=== PATIENT | female | born 1950 | race Caucasian/White ===

== ENCOUNTER 2023-12-15 06:48 | Outpatient (REF) | payer OTHER, SELFPAY ==
--- NOTE | ~2023-12-15 | CT_ITS ---
EXAMINATION: CT ABDOMEN AND PELVIS WITH CONTRAST CLINICAL INFORMATION: Diverticulitis with ongoing abdominal pain and bloating. COMPARISON: None available. TECHNIQUE: Multidetector volumetric images were obtained from the superior aspect of the liver through the pubic symphysis following administration 85 mL of Omnipaque 350 intravenous contrast. Sagittal and coronal reformatted images were obtained on the technologist's workstation. Oral contrast: No This CT examination was performed using dose optimization techniques as appropriate, variously including the following: *Automated exposure control *Adjustment of mA and/or kV according to patient size (this includes techniques or standardized protocols for targeted exams where dose is matched to indication/reason for exam; i.e. extremities or head) *Use of iterative reconstruction technique DLP: 280 mGy-cm FINDINGS: LUNG BASES: The visualized lung bases are unremarkable. LIVER, GALLBLADDER, AND BILIARY TREE: The liver is normal in size, shape, and attenuation. No focal hepatic lesion or biliary ductal dilatation is present. The gallbladder is unremarkable with no evidence of radiopaque gallstones, gallbladder wall thickening, or obvious pericholecystic inflammatory changes. PANCREAS: Unremarkable. SPLEEN: Unremarkable. ADRENAL GLANDS: Unremarkable. KIDNEYS AND URETERS: The kidneys are normal in size, shape, and attenuation. No hydronephrosis, hydroureter, or calculi seen. There are a few benign, simple appearing left renal cysts, some too small to fully characterize with CT. These require no imaging follow-up. No perinephric stranding. BLADDER: Unremarkable. GASTROINTESTINAL TRACT: There is moderate diverticulosis diverticulosis. Within the sigmoid region (3:59 and 4:39), there is a 2.0 x 3.5 x 3.9 cm fluid collection, with appearance favoring an intramural abscess. Within the ascending colon (2:31), there is a 1.3 cm lipomatous polyp with postcontrast Hounsfield value of -37.4 units. No obstruction or free intraperitoneal air is seen. There is a large volume of stool within the distal sigmoid and rectum. ABDOMINAL WALL: A small fat-containing umbilical hernia defect is seen. LYMPH NODES: Normal. VASCULAR: There is moderate aortoiliac atherosclerotic calcification. No abdominal aortic aneurysm or dissection is seen. PELVIC VISCERA: The uterus and adnexa are unremarkable. OSSEOUS STRUCTURES: There is marked degenerative disc disease at L4-L5 and L5-S1, with vacuum disc phenomenon. At L5-S1, there is a 5 mm anterolisthesis. No acute or aggressive osseous finding is noted. CT/CT abdomen pelvis w IV con IMPRESSION: 1. There is sigmoid diverticulosis. A 3.9 cm in maximal diameter low-attenuation fluid collection is seen consistent with a sigmoid intramural abscess. There is a large volume of stool noted within the distal sigmoid and rectum. No judi obstruction or free intraperitoneal air is seen. A 1.3 cm fat density lipoma is noted within the ascending colon. 2. There is a small fat-containing umbilical hernia. 3. There is marked degenerative disc disease at L4-L5 and L5-S1. Fleischner guidelines were followed. A preliminary report was provided by the [facility] on 12/23/2023.
[2023-12-15] MEDS: Barium Sulfate Oral (Vanilla) 450 ML ORAL.SUSP 900 ML PO (10:20)
[2023-12-15] MEDS: iohexoL 350 MG/ML 100 ML INFUS..BTL 85 ML IV (10:21)
[2023-12-15 14:25] LABS: GFR POC 60
== END 2023-12-15 06:49 | disposition home or self-care (01) ==
LOC: HO.CT 06:48
PROVIDERS: PCP Family Medicine; Visit Provider Family Medicine
DX: K57.92 Diverticulitis of intestine, part unspecified, without perforation or abscess without bleeding (principal)
CPT/HCPCS: 74177; 82565; Q9967

== ENCOUNTER 2023-12-27 11:52 | Outpatient (REF) | payer OTHER, SELFPAY ==
--- NOTE | ~2023-12-27 | CT_ITS ---
EXAMINATION: CT ABDOMEN AND PELVIS WITH CONTRAST CLINICAL INFORMATION: Diverticulitis/abscess. Status post Rx. Check abscess size. COMPARISON: CT abdomen and pelvis 12/15/2023. TECHNIQUE: Multidetector volumetric images were obtained from the superior aspect of the liver through the pubic symphysis following administration 85 mL of Omnipaque 350 intravenous contrast. Sagittal and coronal reformatted images were obtained on the technologist's workstation. Oral contrast: Yes This CT examination was performed using dose optimization techniques as appropriate, variously including the following: *Automated exposure control *Adjustment of mA and/or kV according to patient size (this includes techniques or standardized protocols for targeted exams where dose is matched to indication/reason for exam; i.e. extremities or head) *Use of iterative reconstruction technique DLP: 346 mGy-cm FINDINGS: LUNG BASES: The visualized lung bases are unremarkable. LIVER, GALLBLADDER, AND BILIARY TREE: The liver is normal in size, shape, and attenuation. No focal hepatic lesion or biliary ductal dilatation is present. The gallbladder is unremarkable with no evidence of radiopaque gallstones, gallbladder wall thickening, or obvious pericholecystic inflammatory changes. PANCREAS: No discrete pancreatic mass or pancreatic ductal dilatation. SPLEEN: Unremarkable. ADRENAL GLANDS: No adrenal mass. KIDNEYS AND URETERS: Unchanged 7 mm hypodensity in the mid to lower left kidney is too small to characterize but most likely a cyst. No follow-up imaging is recommended. No hydroureteronephrosis. BLADDER: No discrete fistula is visible. GASTROINTESTINAL TRACT: There is abnormal mural thickening of the mid sigmoid colon over a length of approximately 8-9 cm. There is an ill-defined peripherally enhancing multiloculated fluid collection with air and fluid interposed between the inflamed sigmoid, left adnexum, uterus, and urinary bladder. The collection currently measures approximately 4.9 x 2.4 x 5.1 cm, previously 3.9 x 2.5 x 1.5 cm when measured similarly. There is also a more tubular fluid-filled structure to the left of the primary fluid collection tracking near the gonadal vessels which may represent involvement of the ovary/fallopian tube. This latter component appears stable. There is a new nonenhancing fluid collection in the left lower quadrant measuring 3.4 x 2.7 x 3.0 cm along the lateral peritoneal recess. ABDOMINAL WALL: Small fat-containing umbilical hernia. LYMPH NODES: No lymphadenopathy. VASCULAR: Moderate aortoiliac atherosclerosis. No aneurysm. PELVIC VISCERA: Likely reactive enhancement in the adjacent uterus and involvement of the left fallopian tube/ovary. OSSEOUS STRUCTURES: Degenerative changes in the spine. CT/CT abdomen pelvis w IV con IMPRESSION: Overall worsening of complex fluid collection interposed between the inflamed sigmoid colon, left adnexum, uterus, and urinary bladder as well as development of a new 3.4 x 2.7 x 3.0 cm collection inferior to the proximal sigmoid colon. This process is associated with focal area of sigmoid wall thickening over a length of 8-9 cm and may relate to acute diverticulitis with pericolonic abscess, but nn underlying sigmoid neoplasm with perforation and abscess is a another potential diagnosis. Correlation with colonoscopy is necessary after the acute episode.
[2023-12-27] MEDS: iohexoL 350 MG/ML 100 ML INFUS..BTL IV (15:19)
[2023-12-27] MEDS: Barium Sulfate Oral (Mocha) 450 ML ORAL.SUSP 900 ML PO (15:20)
== END 2023-12-27 11:53 | disposition home or self-care (01) ==
LOC: HO.CT 11:52
PROVIDERS: PCP Family Medicine; Visit Provider Family Medicine
DX: K57.20 Diverticulitis of large intestine with perforation and abscess without bleeding (principal)
CPT/HCPCS: 74177; Q9967

== ENCOUNTER 2023-12-28 14:51 | Inpatient (IN) | payer MEDICARE, SELFPAY ==
--- NOTE | ~2023-12-28 | US_ITS ---
EXAMINATION: US PELVIS CLINICAL INFORMATION: Inflammatory process left pelvis COMPARISON: Previous CT of the abdomen and pelvis 12/27/2023 TECHNIQUE: Ultrasound of the pelvis is performed using both transabdominal and transvaginal transducers along with Doppler. Transvaginal imaging is performed due to inadequate visualization transabdominally. FINDINGS: The uterus is anteverted and measures 7.2 x 3.1 x 3.1 cm in dimension. The endometrium is abnormally thickened for a postmenopausal patient measuring 8 mm and heterogeneous appearing. No focal uterine lesion is seen. The right ovary is normal-appearing and measures 1.7 x 1 x 1 cm. The left ovary is not seen. There is an ill-defined heterogeneous hyper and hypoechoic mass in the left pelvis, associated peristalsing bowel and small amount of free fluid. US/US pelvic and transvaginal IMPRESSION: Abnormally thickened heterogeneous endometrium. Tissue sampling recommended, especially if there is history of vaginal bleeding. Normal right ovary. Left ovary not seen. Heterogeneous ill-defined hyper and hypoechoic mass in the left pelvis that appears associated with peristalsing bowel and small amount of fluid in the pelvis.
[2023-12-28 15:05] VITALS: BP 144/72; PULSE 83; RESP 19; TEMP 36.6; O2SAT 99; BMI 23.7
--- NOTE | 2023-12-28 15:05 | ED_ITS ---
HPI - Abdominal Pain General Chief Complaint: Abdominal Pain Stated Complaint: Abscess - sent by Dr Michael Seen by Provider: 12/28/23 18:41 Source: patient, RN notes reviewed and old records reviewed Mode of arrival: ambulatory Limitations: no limitations History of Present Illness ED Provider: Rosmery Reeves PA-C HPI narrative: 73-year-old female with history of hypertension and hypothyroid who presents to the ER for evaluation of a worsening sigmoid abscess on outpatient imaging. Patient has been having abdominal pain since October. She had a CT scan done December 14 that showed a 3.9 cm sigmoid abscess (didn't result until 12/23) . Her provider was paged of the abnormal results and she was started on Levaquin and Flagyl. A repeat CT scan was ordered and done yesterday. Results came back today with a worsening sigmoid abscess. He reports a history of a similar issue in 2018 which was treated with IV antibiotics and did not require surgical intervention. Patient reports the pain is intermittent, currently has no pain. She reports it is sharp and in her lower abdomen, worse on the left than the right. She denies any nausea, vomiting, diarrhea. She has been having more frequent stools given the p.o. contrast that she had to drink yesterday. She denies any fever or chills. No chest pain or shortness of breath. MD elicited complaint: abdominal pain and other (Abnormal imaging) Pertinent past history: diverticulitis Onset (ago): week(s) Pain Consistency: intermittent Location: LLQ Severity: moderate Quality: stabbing Radiation: none Migration to: no migration Exacerbating factors: nothing Relieving factors: nothing Context: history of similar episodes Related Data Home Medications ?Medication ?Instructions ?Recorded ?Confirmed ibuprofen 200 mg tablet 200 mg PO Q6H PRN Pain 12/28/23 12/28/23 levofloxacin 750 mg tablet 750 mg PO DAILY 12/28/23 12/28/23 levothyroxine 88 mcg tablet 88 mcg PO DAILY@0600 12/28/23 12/28/23 losartan 100 mg tablet 100 mg PO DAILY 12/28/23 12/28/23 metoprolol succinate 100 mg 100 mg PO BEDTIME 12/28/23 12/28/23 tablet,extended release 24 hr metronidazole 500 mg tablet 500 mg PO TID 12/28/23 12/28/23 Allergies Allergy/AdvReac Type Severity Reaction Status Date / Time hydrochlorothiazide Allergy Rash Verified 12/28/23 15:07 Sulfa (Sulfonamide AdvReac Nausea and Verified 12/28/23 15:07 Antibiotics) Vomiting Review of Systems Review of Systems Yes all other systems are reviewed and are negative [facility] Past Medical History Medical History (Updated 12/28/23 @ 21:38 by Shailesh Pacheco MD) Thyroid disease Hypertension Social History Social History Smoked in Last 30 Days: Yes Use of substances other than those prescribed or required for medical reasons: No Advance Directives: No Advance Directives Information Provided: No Physical Exam ED Vital Signs: Vital Signs - 24 hr 12/28/23 15:05 12/28/23 19:30 12/28/23 20:00 Temperature 98 F 98.2 F 98.0 F Pulse Rate 83 74 78 Respiratory Rate 19 18 Blood Pressure 144/72 H 158/81 H 156/80 H Pulse Oximetry 99 100 100 Oxygen Delivery Method Room Air Room Air Room Air BMI result Body Mass Index 23.7 Appearance: Alert. Oriented X3. No acute distress. Head: normocephalic, atraumatic. Eyes: Pupils equal, round and reactive to light. ENT: Pharynx normal. No tonsillar swelling or exudate. Neck: Normal inspection. Neck supple. CVS: Normal heart rate and rhythm. Pulses normal. Respiratory: No respiratory distress. Breath sounds normal. Abdomen: Soft a and only tender to deep palpation in the left lower quadrant, no rebound or guarding. No tenderness to light palpation, normal active +BS x4 Skin: Skin warm and dry. Normal skin color. Normal skin turgor. No rashes. Extremities: No lower extremity edema. No joint swelling. Neuro/psych: Oriented X 3. No motor deficit. No sensory deficit. CN II-XII intact. Normal speech and cognition. Course Course Course Narrative: This is a Rapid Medical Examination (RME) performed by Alexander Vargas PA-C in triage. Full HPI, ROS, assessment and treatment plan per primary provider in the Main ED. 73 yo femel w/ hx of diverticulosis/ diverticulitis here for eval of abdominal pain xweeks. I did receive expect from her doctor. CT on 12/04/23 showing showing diverticulitis with 5.1 cm abscess and 3.4 cm sigmoid abscess. She has failed p.o. antibiotics x2. Initial antibiotic treatment with Cipro and Flagyl. She is currently 5 days into Levaquin and Flagyl. denies fever, chills, diarrhea, constipation. Plan: labs, UA, +imaging once back in ED bed Medical Decision Making Medical Decision Making [facility] Narrative: 73-year-old female with history of hypertension and hypothyroidism, history of sigmoid abscess 5 years ago treated medically with IV antibiotics and no surgical intervention or drainage presents to the ER for evaluation of worsening sigmoid abscess on outpatient CT scan. Outpatient records and office records were reviewed. Imaging from yesterday was reviewed. On examination patient's abdomen is benign. She has no current pain. She arrives to the ER afebrile with no tachycardia. She is nontoxic appearing. Lab workup today shows no leukocytosis. Spoke with Dr. Pacheco from surgery who will admit the patient for further management. Will start IV Zosyn and IV fluids. Differential Diagnosis Differential Diagnoses: The differential diagnosis associated with the presentation includes A sigmoid abscess due to diverticulitis, bowel perforation, obstruction due to abscess, necrotic bowel, cancer Admission/Observation Consideration of admission/observation: Escalation of care including admission/observation considered Consult Healthcare Provider Management of the patient was discussed with: Adjunct Lecturer Dr. Pacheco Lab Data [facility] Lab Attestation statement: I reviewed the patient's lab results. No leukocytosis, stable anemia, thrombocytosis, normal renal function, mild hyponatremia 12/28/23 15:35 12/28/23 15:35 Labs: Lab Results 12/28/23 12/28/23 Range/Units 15:35 19:17 WBC 10.3 (4.8-10.8) X10*3/uL RBC 4.52 (4.20-5.50) X10*6/uL Hgb 12.7 (12.0-16.0) g/dl Hct 38.2 (37.0-47.0) % MCV 84.5 (80.0-98.0) fL MCH 28.1 (27.0-33.0) pg MCHC 33.2 (31.0-35.0) g/dl RDW 13.6 (11.0-16.0) % Plt Count 418 H (160-400) X10*3/uL MPV 9.2 L (9.4-12.3) fL Immature Gran % (Auto) 0.6 H (0.0-0.4) % Neut % (Auto) 83.4 H (45-73) % Lymph % (Auto) 5.3 L (20-40) % [place] % (Auto) 9.5 (2-11) % Eos % (Auto) 0.9 (0-4) % Baso % (Auto) 0.3 (0-2) % Lymph # (Auto) 0.6 L (1.2-4.9) X10*3/uL [place] # (Auto) 1.0 (0.1-1.2) X10*3/uL Eos # (Auto) 0.1 (0.0-0.4) X10*3/uL Baso # (Auto) 0.0 (0.0-0.2) X10*3/uL Abs Immat Gran (auto) 0.06 H (0.00-0.03) X10*3/uL Absolute Neuts (auto) 8.6 H (2.0-8.3) x10*3/uL Absolute Nucleated RBC 0.000 (0.0-0.012) X10*3/uL Nucleated RBC % (auto) 0.0 (0.0-0.2) /100WBC PT 16.7 H (11.1-13.3) SEC INR 1.4 H (0.9-1.1) Sodium 133 L (135-145) mmol/L Potassium 4.0 (3.3-5.1) mmol/L Chloride 100 (96-108) mmol/L Carbon Dioxide 26 (22-29) mmol/L Anion Gap 11 L (12-20) BUN 10 (9-16) mg/dL Creatinine 0.80 (0.5-1.4) mg/dL Estim Creat Clear Calc 52.4 Estimated GFR > 60 Random Glucose 110 (60-115) mg/dL Lactic Acid 0.9 (0.5-2.0) mmol/L Calcium 9.7 (8.4-10.2) mg/dL Magnesium 1.9 (1.6-2.6) mg/dL Total Bilirubin 0.4 (0.0-1.0) mg/dL AST 18 (5-31) U/L ALT 13 (0-31) U/L Alkaline Phosphatase 53 (39-117) U/L Total Protein 7.3 (6.5-8.0) g/dL Albumin 3.8 (3.5-5.0) g/dL Lipase 14 (8-78) U/L Independent Interpretation I performed an independent interpretation of an: CT Scan Interpretation: Abnormal fluid collection in the left lower quadrant consistent with abscess Radiology Impression Discussion of test interpretation with radiology: I have reviewed the radiologist's reading. Radiologist Impression: CT/CT abdomen pelvis w IV con IMPRESSION: Overall worsening of complex fluid collection interposed between the inflamed sigmoid colon, left adnexum, uterus, and urinary bladder as well as development of a new 3.4 x 2.7 x 3.0 cm collection inferior to the proximal sigmoid colon. This process is associated with focal area of sigmoid wall thickening over a length of 8-9 cm and may relate to acute diverticulitis with pericolonic abscess, but nn underlying sigmoid neoplasm with perforation and abscess is a another potential diagnosis. Correlation with colonoscopy is necessary after the acute episode. External Record Review External record reviewed: Office record, Outpatient record and Prior outpatient labs Prescription Management I considered prescription management with: Pain Medication and Antibiotic Chronic Conditions Patient?s care impacted by: Hypertension Medications Administered Discontinued Medications Generic Name Dose Route Start Last Admin Trade Name Freq PRN Reason Stop Dose Admin Sodium Chloride 1,000 mls @ 999 mls/hr 12/28/23 19:00 12/28/23 19:26 Ns IVCONT 12/28/23 20:00 999 mls/hr .Q1H1M COLLETTE Administration Piperacillin Sod/Tazobactam 50 mls @ 100 mls/hr 12/28/23 18:59 12/28/23 19:26 Sod 3.375 gm/ Sodium Chloride IV 12/28/23 19:28 100 mls/hr ONCE ONE Administration Discharge Plan Discharge Clinical Impression: Abscess of sigmoid colon Patient Disposition: Admitted As Inpatient
[2023-12-28 15:42] LABS: MANUAL DIFF FLAG NO
[2023-12-28 15:43] LABS: Basophils Percent Auto 0.3 % (0-2); Eosinophils Absolute Auto 0.1 X10*3/uL (0.0-0.4); Eosinophils Percent Auto 0.9 % (0-4); Hematocrit 38.2 % (37.0-47.0); Hemoglobin 12.7 g/dl (12.0-16.0); Imm Gran Abs Auto 0.06 X10*3/uL (0.00-0.03); Imm Gran Pct Auto 0.6 % (0.0-0.4); Lymphocytes Absolute Auto 0.6 X10*3/uL (1.2-4.9); Lymphocytes Percent Auto 5.3 % (20-40); Mean Corpuscular HGB Conc 33.2 g/dl (31.0-35.0); Mean Corpuscular Hemoglobin 28.1 pg (27.0-33.0); Mean Corpuscular Volume 84.5 fL (80.0-98.0); Mean Platelet Volume 9.2 fL (9.4-12.3); Monocytes Percent Auto 9.5 % (2-11); Neutrophils Absolute Auto 8.6 x10*3/uL (2.0-8.3); Neutrophils Percent Auto 83.4 % (45-73); Platelet Count 418 X10*3/uL (160-400); Red Blood Count 4.52 X10*6/uL (4.20-5.50); Red Cell Distribution Width 13.6 % (11.0-16.0); White Blood Count 10.3 X10*3/uL (4.8-10.8)
[2023-12-28 15:56] LABS: INTERNATIONAL NORM RATIO 1.4 (0.9-1.1); Prothrombin Time 16.7 SEC (11.1-13.3)
[2023-12-28 15:59] LABS: Alanine Aminotransferase 13 U/L (0-31); Albumin Level 3.8 g/dL (3.5-5.0); Alkaline Phosphatase 53 U/L (39-117); Anion Gap 11 (12-20); Aspartate Amino Transferase 18 U/L (5-31); Bilirubin Total 0.4 mg/dL (0.0-1.0); Blood Urea Nitrogen 10 mg/dL (9-16); Calcium 9.7 mg/dL (8.4-10.2); Carbon Dioxide 26 mmol/L (22-29); Chloride 100 mmol/L (96-108); Creatinine Clr Calc Pharmacy 52.4; Estimated Glomerular Filt Rate > 60; Glucose Random 110 mg/dL (60-115); Lipase 14 U/L (8-78); Magnesium 1.9 mg/dL (1.6-2.6); Sodium 133 mmol/L (135-145); Total Protein 7.3 g/dL (6.5-8.0)
[2023-12-28] MEDS: 0.9 % Sodium Chloride 1,000 ML 999 ML IVCONT (19:26)
[2023-12-28] MEDS: Piperacillin Sodium/Tazobactam 3.375 GM in 0.9 % Sodium Chloride 50 ML IV (19:26)
[2023-12-28 19:30] VITALS: BP 158/81; PULSE 74; RESP 18; TEMP 36.8; O2SAT 100
[2023-12-28 19:38] LABS: Lactic Acid 0.9 mmol/L (0.5-2.0)
[2023-12-28 20:00] VITALS: BP 156/80; PULSE 78; TEMP 36.7; O2SAT 100
[2023-12-28 20:45] VITALS: BP 161/73; PULSE 82; O2SAT 100
--- NOTE | 2023-12-28 20:51 | PHA.MEDREC ---
Addendum entered by Teodoro Luther [facility] 12/28/23 21:09: Patient has taken metronidazole daily for 5 days, she will complete course on 01/05. Patient only took levofloxacin, however only took the first two days, and has not taken any since. Patients requires 12 more days of levofloxacin therapy to complete course on 01/07. Original Note: Pharmacy Consult ? Medication Reconciliation Pharmacy has completed the medication reconciliation. Confirmed medications with patient.
--- NOTE | 2023-12-28 21:33 | P.HPGS_ITS ---
History of Present Illness History of Present Illness Date of Service: 01/03/24 Chief complaint: Diverticular abscess Narrative: Jennie Madrigal is a 73 year old female who is in the ER today after she was sent by her primary care physician because of CT scan results. She had a CAT scan done yesterday this had shown fluid interposed between her bladder, sigmoid colon and the left adnexa along with a new 3.4 x 2.7 x 3.0 cm collection inferior to the proximal sigmoid colon. This process is thought to be associated with focal area of sigmoid wall thickening over a length of 8-9 cm and may relate toacute diverticulitis with pericolonic abscess, although an underlying neoplastic process could not be ruled out The patient says that she has known diverticulitis from 5 years ago. This was her last episode until had some lower abdominal pain in October,. She says that she saw her primary care physician at that time and she was advised to undergo a CT scan which she had refused. She did take oral antibiotics as prescribed. She says that eventually agreed to have a CT scan done last month because her pain seems to have recurrent. She says that this was not excruciating pain but was more of a low intensity kind of pain on the lower abdomen. She eventually had a CAT scan done last December 15, 2023 showing this likely intramural abscess of the sigmoid. She says that of initial report of the CT scan was not read until December 22 and wants her physician new about this, she was scheduled to have an outpatient follow-up CT scan which was done yesterday. She was then sent to the ER today after the report of this new CT scan from yesterday was sent to her primary care physician. She says that she really does not have any pain at this time although she says she has this periodic no abdominal pain of low intensity off. She denies urinary complaints. She denies any fever or chills at home. She says that she currently does not have any pain or tenderness. She has never had any colonoscopy in the past. Review of Systems Constitutional: Constitutional: Denies chills and Denies fever(s) Cardiovascular: Cardiovascular: Denies chest pain, Denies dyspnea and Denies dyspnea on exertion Respiratory: Respiratory: Denies cough, Denies dyspnea and Denies dyspnea on exertion Gastrointestinal: Gastrointestinal: Denies hematochezia and Denies change in bowel habits Genitourinary: Genitourinary: Denies hematuria Musculoskeletal: Musculoskeletal: Denies back pain and Denies limited range of motion Neurologic: Denies focal weakness and Denies convulsions Psychiatric: Psychiatric: Denies depression and Denies mood swings [facility] Past Medical History Medical History Thyroid disease Hypertension Social History Social History Household Members: Spouse Housing: House Patient Tobacco Use Status: Current everyday Tobacco user Tobacco use type: Cigarette service: No Meds Allergies Allergy/AdvReac Type Severity Reaction Status Date / Time hydrochlorothiazide Allergy Rash Verified 12/28/23 15:07 Sulfa (Sulfonamide AdvReac Nausea and Verified 12/28/23 15:07 Antibiotics) Vomiting Active Medications: Current Medications Sodium Chloride (Ns) 1,000 mls @ 80 mls/hr IVCONT .[id number] COLLETTE Piperacillin Sod/Tazobactam (Sod 3.375 gm/ Sodium Chloride) 50 mls @ 100 mls/hr IV Q6H COLLETTE Sodium Chloride (0.9 % Sodium Chloride Flush 3 Ml Syringe) 3 ml IVFLUSH QSHIFT COLLETTE Home Medications ?Medication ?Instructions ?Recorded ?Confirmed ?Last Taken ?Type ibuprofen 200 mg tablet 200 mg PO Q6H PRN Pain 12/28/23 12/28/23 Unknown History levothyroxine 88 mcg tablet 88 mcg PO DAILY@0600 12/28/23 12/28/23 12/28/23 06:00 History losartan 100 mg tablet 100 mg PO DAILY 12/28/23 12/28/23 12/28/23 06:00 History metoprolol succinate 100 mg 100 mg PO BEDTIME 12/28/23 12/28/23 12/27/23 18:00 History tablet,extended release 24 hr Physical Exam Vital Signs: Vital Signs: Last Vital Signs Temp 98.0 F 12/28/23 20:00 Pulse 82 12/28/23 20:45 Resp 18 12/28/23 19:30 BP 161/73 H 12/28/23 20:45 Pulse Ox 100 12/28/23 20:45 O2 Del Method Room Air 12/28/23 20:45 BMI result Body Mass Index 23.7 Const: General: comfortable and no acute distress Orientation/consciousness: patient oriented x3 Neck: Neck: Yes no lymphadenopathy Resp: Auscultation: clear to auscultation bilaterally Cardio: Rhythm: regular rhythm GI: Inspection: No distended Palpation (GI): Soft to palpation, nontender (Very minimal tenderness to deep palpation in the lower abdomen) and no guarding Neuro: General: patient oriented x3 Results Results Labs: Short CBC 12/28/23 Range/Units 15:35 WBC 10.3 (4.8-10.8) X10*3/uL Hgb 12.7 (12.0-16.0) g/dl Hct 38.2 (37.0-47.0) % Plt Count 418 H (160-400) X10*3/uL BMP 12/28/23 15:35 Sodium 133 L Potassium 4.0 Chloride 100 Carbon Dioxide 26 BUN 10 Creatinine 0.80 Calcium 9.7 Liver Function 12/28/23 Range/Units 15:35 Total Bilirubin 0.4 (0.0-1.0) mg/dL AST 18 (5-31) U/L ALT 13 (0-31) U/L Alkaline Phosphatase 53 (39-117) U/L Albumin 3.8 (3.5-5.0) g/dL Assessment and Plan (1) Abscess of sigmoid colon: Status: Acute She was sent to the ER today by her primary care physician because of a CT scan finding from yesterday. This showed fluid interposed between her bladder, s sigmoid and the left adnexa along with a new fluid collection as described above adjacent to the sigmoid with a segment of thickening of the sigmoid wall suggestive of diverticular disease. A neoplastic process can not be ruled out I was start her on IV antibiotics. She will be kept on clear liquids for now. I will review her CT scan with the radiologist and see if she has a candidate for IR drainage. I have also consulted the hospitalist service because of her hypertension and thyroid disease She appears hemodynamically stable and has a very benign exam. She says does not have any fever or leukocytosis. I have reviewed with her the plan and she understands at this time and is comfortable with this. Quality Stroke Does the patient have a stroke diagnosis?: No VTE Prior VTE?: No VTE Risk Level:: Medical - moderate - high VTE Device Contraindication: N/A - Device Ordered VTE Drug Contraindication: N/A - Med Ordered Procedures Date of Service Date of Service: 01/03/24
--- NOTE | 2023-12-28 21:40 | PC.NURSE ---
PT brought in from waiting room. Explains she was sent from provider due to sigmoid abscess found on CT scan. VSS, pt denies pain at this time, labs drawn and sent down to lab. IV line placed in right ac. medications adminsitered as per SEP. Plan is for pt to be admitted. call baez within reach
[2023-12-28] MEDS: 0.9 % Sodium Chloride 1,000 ML 80 ML IVCONT (23:38)
[2023-12-28 23:41] VITALS: BP 155/69; PULSE 72; RESP 18; TEMP 36.6; O2SAT 97
--- NOTE | 2023-12-28 23:42 | MHC.EDTECH ---
This tech took over care of patient at 2300,patient ambulated to the bathroom with a steady gait.Water given per request rounds and vitals completed,call baez in reach
[2023-12-29] VITALS (7 sets, daily range): BP systolic 138–167; BP diastolic 68–78; PULSE 72–78; RESP 16–69; TEMP 36.2–36.6; O2SAT 96–100
[2023-12-29] MEDS: Piperacillin Sodium/Tazobactam 3.375 GM in 0.9 % Sodium Chloride 50 ML IV ×4 (01:53→18:24)
--- NOTE | 2023-12-29 04:07 | MHC.EDTECH ---
Hourly rounds and vitals completed,patient ambulated to the bathroom with a steady gait,call baez in reach
--- NOTE | 2023-12-29 06:34 | MHC.EDTECH ---
Hourly rounds and vitals completed,patient ambulated to the bathroom,urine sample obtained and sent to lab.
[2023-12-29 06:52] LABS: Appearance Urine Clear; Color Urine Yellow; Glucose Urine UA Negative (Negative); Leukocyte Esterase Urine Small (1+) (Negative); Nitrite Urine Negative (Negative); PH 6.5 (5.0-9.0); Specific Gravity - Urine 1.015 (1.005-1.025); UMIC TRIGGER UACC YES; Urine Blood Negative (Negative); Urine Ketones 15 mg/dL (Negative); Urine Protein Negative (Neg-Trace)
[2023-12-29 07:07] LABS: Bacteria Urine None Seen (None Seen); Hyaline Casts Urine 0-2 /LPF (0-2); RBC Urine 0-2 /HPF (0-2); UACC Culture Trigger YES; WBC Urine 0-5 /HPF (0-5)
--- NOTE | 2023-12-29 08:04 | P.PNGS_ITS ---
Subjective Subjective Date of Service: 12/29/23 Interval history: She feels well this morning Denies abdominal pain No fever Asking about food Physical Exam 2 Vital Signs: Vital Signs: Last Vital Signs Temp 97.9 F 12/29/23 06:20 Pulse 78 12/29/23 06:20 Resp 18 12/29/23 06:20 BP 156/78 H 12/29/23 06:20 Pulse Ox 96 12/29/23 06:20 O2 Del Method Room Air 12/29/23 06:20 BMI result Body Mass Index 23.7 Const: General: comfortable and no acute distress Resp: Effort & Inspection: normal respiratory effort Cardio: Rate: regular rate GI: Palpation (GI): Soft to palpation, not firm, nontender and no guarding Objective Data Active Medications Sodium Chloride (Ns) 1,000 mls @ 80 mls/hr IVCONT .[id number] [facility] Last Admin: 12/28/23 23:38 Dose: 80 mls/hr Documented By: PATRICIA Piperacillin Sod/Tazobactam (Sod 3.375 gm/ Sodium Chloride) 50 mls @ 100 mls/hr IV Q6H [facility] Last Admin: 12/29/23 07:26 Dose: 100 mls/hr Documented By: ERICK Sodium Chloride (0.9 % Sodium Chloride Flush 3 Ml Syringe) 3 ml IVFLUSH QSHIFT [facility] Last Admin: 12/29/23 07:27 Dose: Not Given Documented By: ERICK Non-Admin Reason: IV Running Labs 12/28/23 15:35 12/28/23 15:35 Labs: Laboratory Results - last 24 hr 12/28/23 12/28/23 12/29/23 15:35 19:17 06:33 MCV 84.5 MCH 28.1 MCHC 33.2 RDW 13.6 Plt Count 418 H MPV 9.2 L Immature Gran % (Auto) 0.6 H Neut % (Auto) 83.4 H Lymph % (Auto) 5.3 L [place]ack[place]ord % (Auto) 9.5 Eos % (Auto) 0.9 Baso % (Auto) 0.3 Lymph # (Auto) 0.6 L [place] # (Auto) 1.0 Eos # (Auto) 0.1 Baso # (Auto) 0.0 Abs Immat Gran (auto) 0.06 H Absolute Neuts (auto) 8.6 H Absolute Nucleated RBC 0.000 Nucleated RBC % (auto) 0.0 PT 16.7 H INR 1.4 H Anion Gap 11 L Estim Creat Clear Calc 52.4 Estimated GFR > 60 Random Glucose 110 Lactic Acid 0.9 Calcium 9.7 Magnesium 1.9 Total Bilirubin 0.4 AST 18 ALT 13 Alkaline Phosphatase 53 Total Protein 7.3 Albumin 3.8 Lipase 14 Urine Color Yellow Urine Appearance Clear Urine pH 6.5 Ur Specific Geff 1.015 Urine Protein Negative Urine Glucose (UA) Negative Urine Ketones 15 Urine Blood Negative Urine Nitrite Negative Ur Leukocyte Esterase Small (1+) H Urine RBC 0-2 Urine WBC 0-5 Ur Squamous Epith Cells 3-5 Urine Bacteria None Seen Hyaline Casts 0-2 Procedures Date of Service Date of Service: 12/29/23 Progress Note: A&P Assessment and plan (1) Abscess of sigmoid colon: Status: Acute Assessment and Plan: With significant inflammatory changes in the pelvis, fluid collections Clinically looks well Denies abdominal pain or tenderness We will review CAT scan with IR and see if she may benefit from IR drainage Continue IV antibiotics for now Hospitalist consulted because of multiple medications, hypertension, thyroid disease Time Spent With Patient Time: Total time managing care of this patient today ____ minutes. Quality Stroke Does the patient have a stroke diagnosis?: No VTE Prior VTE?: No VTE Risk Level:: Medical - moderate - high VTE Device Contraindication: N/A - Device Ordered VTE Drug Contraindication: N/A - Med Ordered
[2023-12-29] MEDS: 0.9 % Sodium Chloride 1,000 ML 80 ML IVCONT ×2 (09:18→11:52)
--- NOTE | 2023-12-29 10:56 | MHC.CM.PN ---
CM MET WITH PT AT BEDSIDE. PT LIVES WITH SPOUSE AND IS FULLY INDEPENDENT. PT DECLINES HCP, FEELS IT IS NOT NEEDED. EDUCATION PROVIDED AND PT MAY THINK ABOUT IT BUT NOT NOW. PCP JOSE LUIS AUGUSTE AT [facility] DP: HOME, NO SERVICES IS THE GOAL. PT HAS OWN RIDE HOME. CM WILL CONTINUE TO FOLLOW FOR ANY CHANGE TO DC NEEDS/PLAN
--- OUTSIDE RECORDS SUMMARY | 2023-12-29 11:24 | XMS_ITS | Continuity of Care Document ---
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
--- NOTE | 2023-12-29 14:08 | PM.EVENT ---
Event Note Date of Service: 01/01/24 Event Note: Continues to feel well Denies abdominal pain Abdomen remained soft and benign No fever Ultrasound of the pelvis ordered Continue IV antibiotics for now Try to advance diet tomorrow Seems to be doing well overall despite CT scan findings CT reviewed with IR - no role for her drainage for now, mostly inflammatory changes, no abscess collection but with free fluid Time Spent With Patient Time: Total time managing care of this patient today ____ minutes.
--- NOTE | 2023-12-29 17:48 | P.CONIM_ITS ---
History of Present Illness Data of Consult Service Date: 12/29/23 Requesting physician: Shailesh Pacheco Primary Care Provider: DO TERESA Singh Reason for consult: routine medical consultation for medication management This is a 73-year-old female who was admitted to the surgical service due to intra abdominal abscess thought to be related to acute diverticulitis with pericolonic abscess. She currently denies any abdominal pain or associated nausea or vomiting. She is currently tolerating clear liquids. The hospitalist service was asked to see her for routine medical consultation to assist with medical management. Review of Systems 2 Review of Systems: Yes all other systems are reviewed and are negative Constitutional: Constitutional: Denies fever(s) ENT: Denies dizziness Cardiovascular: Cardiovascular: Denies chest pain and Denies palpitations Respiratory: Respiratory: Denies cough Gastrointestinal: Gastrointestinal: Denies abdominal pain, Denies nausea and Denies vomiting Neurologic: Denies dizziness Endocrine: Endocrine: Denies palpitations PMFSH Medical History Thyroid disease Hypertension Social History Household Members: Spouse Housing: House Patient Tobacco Use Status: Current everyday Tobacco user Tobacco use type: Cigarette Smoked in Last 30 Days: Yes Patient Interested in Nicotine Replacement: No Use of substances other than those prescribed or required for medical reasons: No Currently Displaying Signs/Symptoms of Drug Intoxication Withdrawal: No Do you feel safe in your current relationship?: Yes Advance Directives: No Advance Directives Information Provided: No Do you have a plan to hurt others: No Plan Recently lost weight without trying: Unsure Nutrition Risks: No Nutritional Risk Patient : No : No Poor oral hygiene: No service: No Meds Allergies Allergy/AdvReac Type Severity Reaction Status Date / Time hydrochlorothiazide Allergy Rash Verified 12/28/23 15:07 Sulfa (Sulfonamide AdvReac Nausea and Verified 12/28/23 15:07 Antibiotics) Vomiting Active Medications: Current Medications Sodium Chloride (Ns) 1,000 mls @ 80 mls/hr IVCONT .[id number] [facility] Last Admin: 12/29/23 11:52 Dose: 80 mls/hr Piperacillin Sod/Tazobactam (Sod 3.375 gm/ Sodium Chloride) 50 mls @ 100 mls/hr IV Q6H [facility] Last Infusion: 12/29/23 13:56 Dose: Infused Levothyroxine Sodium (Levothyroxine Sodium 88 Mcg Tablet) 88 mcg PO DAILY@0600 [facility] Last Admin: 12/29/23 16:44 Dose: Not Given Metoprolol Succinate (Metoprolol Succinate Er 100 Mg Tab.Er.24h) 100 mg PO BEDTIME [facility]; Protocol Sodium Chloride (0.9 % Sodium Chloride Flush 3 Ml Syringe) 3 ml IVFLUSH QSHIFT [facility] Last Admin: 12/29/23 15:17 Dose: Not Given Home Medications ?Medication ?Instructions ?Recorded ?Confirmed ?Last Taken ?Type ibuprofen 200 mg tablet 200 mg PO Q6H PRN Pain 12/28/23 12/28/23 Unknown History levofloxacin 750 mg tablet 750 mg PO DAILY 12/28/23 12/28/23 Unknown History levothyroxine 88 mcg tablet 88 mcg PO DAILY@0600 12/28/23 12/28/23 12/28/23 06:00 History losartan 100 mg tablet 100 mg PO DAILY 12/28/23 12/28/23 12/28/23 06:00 History metoprolol succinate 100 mg 100 mg PO BEDTIME 12/28/23 12/28/23 12/27/23 18:00 History tablet,extended release 24 hr metronidazole 500 mg tablet 500 mg PO TID 12/28/23 12/28/23 12/28/23 History Physical Exam 2 Vital Signs and Narrative: Vital Signs: Last Vital Signs Temp 97.5 F 12/29/23 15:31 Pulse 73 12/29/23 15:31 Resp 18 12/29/23 15:31 BP 151/72 H 12/29/23 15:31 Pulse Ox 100 12/29/23 15:31 O2 Del Method Room Air 12/29/23 15:31 BMI result Body Mass Index 23.7 Const: General: cooperative, no acute distress, alert and awake Nutritional Appearance: average body habitus Orientation/consciousness: patient oriented x3 Resp: Effort & Inspection: normal respiratory effort, able to speak in complete sentences, no respiratory distress and no use of accessory muscles A uscultation: clear to auscultation bilaterally Cardio: Rate: regular rate GI: Inspection: No distended Palpation (GI): Soft to palpation Neuro: General: patient oriented x3, moves all extremities and CN's II-XI intact bilaterally Extrem: General: Yes no pedal edema Results Labs 12/28/23 15:35 12/28/23 15:35 Labs: Laboratory Results - last 24 hr 12/28/23 12/29/23 19:17 06:33 Lactic Acid 0.9 Urine Color Yellow Urine Appearance Clear Urine pH 6.5 Ur Specific [place] 1.015 Urine Protein Negative Urine Glucose (UA) Negative Urine Ketones 15 Urine Blood Negative Urine Nitrite Negative Ur Leukocyte Esterase Small (1+) H Urine RBC 0-2 Urine WBC 0-5 Ur Squamous Epith Cells 3-5 Urine Bacteria None Seen Hyaline Casts 0-2 Imaging Radiologist's Impressions: Impressions Pelvic/Transvag US 12/29/23 13:04 IMPRESSION: Abnormally thickened heterogeneous endometrium. Tissue sampling recommended, especially if there is history of vaginal bleeding. Normal right ovary. Left ovary not seen. Heterogeneous ill-defined hyper and hypoechoic mass in the left pelvis that appears associated with peristalsing bowel and small amount of fluid in the pelvis. Assessment and Plan (1) Abscess of sigmoid colon: Status: Acute Plan This is a 73-year-old female with history of hypertension, hypothyroidism who was sent to the emergency department due to abscess of sigmoid colon and was admitted to the surgical service. Hypertension blood pressure elevated No evidence of sepsis with underlying infection would resume home metoprolol, losartan Hypothyroidism Continue baseline Synthroid Hyponatremia, mild Sodium 133 Recommend to follow BMP Tobacco dependence Patient smokes 1-4 cigarettes daily Declines nicotine replacement Abscess of sigmoid colon Receiving IV Zosyn per surgical team Appears to be asymptomatic. Blood cultures pending They you for allowing us to participate in the care of this patient. There do not appear to be any acute medical conditions at this time. We will sign off. Feel free to call us if any new medical issues arise.
[2023-12-29] MEDS: Metoprolol Succinate ER 100 MG TAB.ER.24H PO (22:31)
[2023-12-30] MEDS: 0.9 % Sodium Chloride 1,000 ML 80 ML IVCONT ×2 (00:16→13:02)
[2023-12-30] MEDS: Piperacillin Sodium/Tazobactam 3.375 GM in 0.9 % Sodium Chloride 50 ML IV ×4 (00:18→18:26)
[2023-12-30 03:03] VITALS: BP 144/69; PULSE 61; RESP 16; TEMP 36.3; O2SAT 97
[2023-12-30] MEDS: Levothyroxine Sodium 88 MCG TABLET PO (06:04)
[2023-12-30 08:00] VITALS: BP 169/79; PULSE 68; RESP 13; TEMP 36.3; O2SAT 99
[2023-12-30 08:27] VITALS: BP 169/79
[2023-12-30] MEDS: Losartan Potassium 50 MG TABLET 100 MG PO (08:27)
--- NOTE | 2023-12-30 13:35 | PM.PNGS ---
Subjective Subjective Date of Service: 12/30/23 Interval history: Patient feels really good denies any pain going to the bathroom tolerating clear liquids well no fever or chills. Physical Exam Vital Signs: Vital Signs: Last Vital Signs Temp 97.4 F 12/30/23 08:00 Pulse 68 12/30/23 08:00 Resp 13 12/30/23 08:00 BP 169/79 H 12/30/23 08:27 Pulse Ox 99 12/30/23 08:00 O2 Del Method Room Air 12/30/23 08:00 BMI result Body Mass Index 23.7 Const: General: cooperative, healthy appearing, comfortable and no acute distress Resp: Effort & Inspection: normal respiratory effort Auscultation: clear to auscultation bilaterally Cardio: Rate: regular rate Rhythm: regular rhythm GI: Other: Abdomen is soft nondistended nontender Objective Data Active Medications Sodium Chloride (Ns) 1,000 mls @ 80 mls/hr IVCONT .[id number] [facility] Last Admin: 12/30/23 13:02 Dose: 80 mls/hr Documented By: AMPARO Piperacillin Sod/Tazobactam (Sod 3.375 gm/ Sodium Chloride) 50 mls @ 100 mls/hr IV Q6H [facility] Last Admin: 12/30/23 13:01 Dose: 100 mls/hr Documented By: AMPARO Levothyroxine Sodium (Levothyroxine Sodium 88 Mcg Tablet) 88 mcg PO DAILY@0600 [facility] Last Admin: 12/30/23 06:04 Dose: 88 mcg Documented By: ROMELIA Losartan Potassium (Losartan Potassium 50 Mg Tablet) 100 mg PO DAILY [facility]; Protocol Last Admin: 12/30/23 08:27 Dose: 100 mg Documented By: AMPARO Metoprolol Succinate (Metoprolol Succinate Er 100 Mg Tab.Er.24h) 100 mg PO BEDTIME [facility]; Protocol Last Admin: 12/29/23 22:31 Dose: 100 mg Documented By: ROMELIA Sodium Chloride (0.9 % Sodium Chloride Flush 3 Ml Syringe) 3 ml IVFLUSH QSHIFT [facility] Last Admin: 12/30/23 08:01 Dose: Not Given Documented By: AMPARO Non-Admin Reason: IV Running Labs 12/28/23 15:35 12/28/23 15:35 Microbiology Microbiology Results: Microbiology 12/29/23 Unknown Urine Culture - Final Urine clean catch - Urine zaidi top 12/28/23 19:21 Blood Culture - Preliminary Blood - Venous No growth after 24 hours. 12/28/23 19:17 Blood Culture - Preliminary Blood - Venous No growth after 24 hours. Procedures Date of Service Date of Service: 12/30/23 Progress Note: A&P Assessment and plan (1) Abscess of sigmoid colon: Status: Acute Plan 73-year-old female with inflammatory question abscess changes of the sigmoid colon related to diverticulitis or other neoplastic cause. Overall she is doing really quite well clinical exam is relatively normal and her vitals are good. At this point we will advance her diet continue with the IV antibiotics and determine the next step early next week. Time Spent With Patient Time: Total time managing care of this patient today ____ minutes. Quality Stroke Does the patient have a stroke diagnosis?: No VTE Prior VTE?: No VTE Risk Level:: Medical - moderate - high VTE Device Contraindication: N/A - Device Ordered VTE Drug Contraindication: N/A - Med Ordered
[2023-12-30 16:00] VITALS: BP 165/80; PULSE 63; RESP 14; TEMP 36.1; O2SAT 100
[2023-12-30 19:46] VITALS: BP 150/85; PULSE 67; RESP 16; TEMP 36.2; O2SAT 99
[2023-12-30 20:03] VITALS: BP 150/85; PULSE 67
[2023-12-30] MEDS: Metoprolol Succinate ER 100 MG TAB.ER.24H PO (20:03)
[2023-12-31] MEDS: Piperacillin Sodium/Tazobactam 3.375 GM in 0.9 % Sodium Chloride 50 ML IV ×4 (01:07→18:10)
[2023-12-31 03:33] VITALS: BP 138/76; PULSE 71; RESP 16; TEMP 36.3; O2SAT 94
[2023-12-31] MEDS: Levothyroxine Sodium 88 MCG TABLET PO (06:06)
[2023-12-31 07:58] VITALS: BP 145/73; PULSE 60; RESP 18; TEMP 36.1; O2SAT 99
[2023-12-31 08:13] VITALS: BP 145/73
[2023-12-31] MEDS: Losartan Potassium 50 MG TABLET 100 MG PO (08:13)
[2023-12-31] MEDS: 0.9 % Sodium Chloride Flush 3 ML SYRINGE IVFLUSH ×2 (08:14→15:08)
[2023-12-31] MEDS: LORazepam 0.5 MG TABLET PO (15:08)
[2023-12-31 15:46] VITALS: BP 138/72; PULSE 55; RESP 12; TEMP 36.6; O2SAT 95
--- NOTE | 2023-12-31 16:53 | P.PNGS_ITS ---
Subjective Subjective Date of Service: 12/31/23 Interval history: pt feeling little full after advancing her diet no pain passing gas Physical Exam 2 Vital Signs: Vital Signs: Last Vital Signs Temp 97.9 F 12/31/23 15:46 Pulse 55 12/31/23 15:46 Resp 12 12/31/23 15:46 BP 138/72 12/31/23 15:46 Pulse Ox 95 12/31/23 15:46 O2 Del Method Room Air 12/31/23 15:46 BMI result Body Mass Index 23.7 GI: Other: soft nontender nondistended Objective Data Active Medications Piperacillin Sod/Tazobactam (Sod 3.375 gm/ Sodium Chloride) 50 mls @ 100 mls/hr IV Q6H [facility] Last Infusion: 12/31/23 13:00 Dose: Infused Documented By: AMPARO Levothyroxine Sodium (Levothyroxine Sodium 88 Mcg Tablet) 88 mcg PO DAILY@0600 [facility] Last Admin: 12/31/23 06:06 Dose: 88 mcg Documented By: ROMELIA Lorazepam (Lorazepam 0.5 Mg Tablet) 0.5 mg PO Q6H PRN PRN Reason: Anxiety Last Admin: 12/31/23 15:08 Dose: 0.5 mg Documented By: AMPARO Losartan Potassium (Losartan Potassium 50 Mg Tablet) 100 mg PO DAILY [facility]; Protocol Last Admin: 12/31/23 08:13 Dose: 100 mg Documented By: AMPARO Metoprolol Succinate (Metoprolol Succinate Er 100 Mg Tab.Er.24h) 100 mg PO BEDTIME [facility]; Protocol Last Admin: 12/30/23 20:03 Dose: 100 mg Documented By: ROMELIA Sodium Chloride (0.9 % Sodium Chloride Flush 3 Ml Syringe) 3 ml IVFLUSH QSHIFT [facility] Last Admin: 12/31/23 15:08 Dose: 3 ml Documented By: AMPARO Labs 12/28/23 15:35 12/28/23 15:35 Microbiology Microbiology Results: Microbiology 12/28/23 19:21 Blood Culture - Preliminary Blood - Venous No growth after 48 hours. 12/28/23 19:17 Blood Culture - Preliminary Blood - Venous No growth after 48 hours. Echocardiogram Interpretation: [address] [address] Ultrasound Report Signed Patient: Jennie Madrigal MR#: [id number] : 1950 Acct:[id number] Age/Sex: 73 / F ADM Date: 12/28/23 Loc: HO.S3 [id number]: Shailesh Pacheco MD Ordering Physician: Shailesh Pacheco MD Date of Service: 12/29/23 Procedure(s): US pelvic and transvaginal Accession Number(s): [id number] cc: Leilani Woodward DO; Shailesh Pacheco MD~ EXAMINATION: US PELVIS CLINICAL INFORMATION: Inflammatory process left pelvis COMPARISON: Previous CT of the abdomen and pelvis 12/27/2023 TECHNIQUE: Ultrasound of the pelvis is performed using both transabdominal and transvaginal transducers along with Doppler. Transvaginal imaging is performed due to inadequate visualization transabdominally. FINDINGS: The uterus is anteverted and measures 7.2 x 3.1 x 3.1 cm in dimension. The endometrium is abnormally thickened for a postmenopausal patient measuring 8 mm and heterogeneous appearing. No focal uterine lesion is seen. The right ovary is normal-appearing and measures 1.7 x 1 x 1 cm. The left ovary is not seen. There is an ill-defined heterogeneous hyper and hypoechoic mass in the left pelvis, associated peristalsing bowel and small amount of free fluid. US/US pelvic and transvaginal IMPRESSION: Abnormally thickened heterogeneous endometrium. Tissue sampling recommended, especially if there is history of vaginal bleeding. Normal right ovary. Left ovary not seen. Heterogeneous ill-defined hyper and hypoechoic mass in the left pelvis that appears associated with peristalsing bowel and small amount of fluid in the pelvis. Dictated By: Bernadine Juarez MD Signed By: <Electronically signed by Bernadine Juarez MD in OV> 12/29/23 1639 DD/ 1304 TD/TT: Engine Manager: MELONIE Procedures Date of Service Date of Service: 12/31/23 Progress Note: A&P Assessment and plan (1) Abscess of sigmoid colon: Status: Acute Plan pt doing well tolerating some po and iv antibx vag u/s showing thickened endometrial lining - she should have endom bx done also ? Cscope to evaluate the colon - concern for neoplastic issue vs divertics. will discuss with insurance administrative assistant and gi teams Time Spent With Patient Time: Total time managing care of this patient today ____ minutes. Quality Stroke Does the patient have a stroke diagnosis?: No VTE Prior VTE?: No VTE Risk Level:: Medical - moderate - high VTE Device Contraindication: N/A - Device Ordered VTE Drug Contraindication: N/A - Med Ordered
[2023-12-31 19:36] VITALS: BP 165/80; PULSE 71; RESP 18; TEMP 36.1; O2SAT 99
[2023-12-31] MEDS: Metoprolol Succinate ER 100 MG TAB.ER.24H PO (20:45)
[2024-01-01] MEDS: 0.9 % Sodium Chloride Flush 3 ML SYRINGE IVFLUSH ×2 (00:36→07:45)
[2024-01-01] MEDS: Piperacillin Sodium/Tazobactam 3.375 GM in 0.9 % Sodium Chloride 50 ML IV ×3 (00:41→12:28)
[2024-01-01 04:00] VITALS: BP 118/70; PULSE 61; RESP 16; TEMP 35.9; O2SAT 97
[2024-01-01] MEDS: Levothyroxine Sodium 88 MCG TABLET PO (06:07)
[2024-01-01 07:43] VITALS: BP 176/87; PULSE 60; RESP 16; TEMP 36; O2SAT 98
[2024-01-01 07:45] VITALS: BP 176/87
[2024-01-01] MEDS: Losartan Potassium 50 MG TABLET 100 MG PO (07:45)
--- NOTE | 2024-01-01 08:07 | PM.PNGS ---
Subjective Subjective Date of Service: 01/05/24 Interval history: Feels well today Denies abdominal pain Good BMs Passing flatus Asking about discharge Physical Exam Vital Signs: Vital Signs: Last Vital Signs Temp 96.8 F 01/01/24 07:43 Pulse 60 01/01/24 07:43 Resp 16 01/01/24 07:43 BP 176/87 H 01/01/24 07:45 Pulse Ox 98 01/01/24 07:43 O2 Del Method Room Air 01/01/24 07:43 BMI result Body Mass Index 23.7 Const: General: comfortable and no acute distress Resp: Effort & Inspection: normal respiratory effort Cardio: Rate: regular rate GI: Inspection: No distended Palpation (GI): Soft to palpation, not firm, nontender and no guarding Objective Data Active Medications Piperacillin Sod/Tazobactam (Sod 3.375 gm/ Sodium Chloride) 50 mls @ 100 mls/hr IV Q6H [facility] Last Infusion: 01/01/24 06:47 Dose: Infused Documented By: IMELDA Levothyroxine Sodium (Levothyroxine Sodium 88 Mcg Tablet) 88 mcg PO DAILY@0600 [facility] Last Admin: 01/01/24 06:07 Dose: 88 mcg Documented By: IMELDA Lorazepam (Lorazepam 0.5 Mg Tablet) 0.5 mg PO Q6H PRN PRN Reason: Anxiety Last Admin: 12/31/23 15:08 Dose: 0.5 mg Documented By: AMPARO Losartan Potassium (Losartan Potassium 50 Mg Tablet) 100 mg PO DAILY [facility]; Protocol Last Admin: 01/01/24 07:45 Dose: 100 mg Documented By: JOEY Metoprolol Succinate (Metoprolol Succinate Er 100 Mg Tab.Er.24h) 100 mg PO BEDTIME [facility]; Protocol Last Admin: 12/31/23 20:45 Dose: 100 mg Documented By: MISSY Sodium Chloride (0.9 % Sodium Chloride Flush 3 Ml Syringe) 3 ml IVFLUSH QSHIFT [facility] Last Admin: 01/01/24 07:45 Dose: 3 ml Documented By: JOEY Labs 12/28/23 15:35 12/28/23 15:35 Procedures Date of Service Date of Service: 01/05/24 Progress Note: A&P Assessment and plan (1) Abscess of sigmoid colon: Status: Acute Assessment and Plan: Clinically doing very well Asymptomatic No fever Plan to consult when with regards to thickening of the uterus Plan to do colonoscopy eventually but would allow inflammatory changes to settle down Possibly discharged today on oral antibiotics Looks well overall I explained to her that she will need regular up in the office Time Spent With Patient Time: Total time managing care of this patient today ____ minutes. Quality Stroke Does the patient have a stroke diagnosis?: No VTE Prior VTE?: No VTE Risk Level:: Medical - moderate - high VTE Device Contraindication: N/A - Device Ordered VTE Drug Contraindication: N/A - Med Ordered
--- NOTE | 2024-01-01 12:18 | PM.GYNCN ---
CAMPAIGN ADVISOR - CN: HPI Data of Consult Consult date: 01/01/24 Requesting Physician: Shailesh Pacheco MD Primary Care Provider: Leilani Woodward DO Consult Narrative Narrative: I was consulted on Jennie Madrigal who is a 73 year old female was admitted on 12/27 for diverticular abscess has been IV antibiotics since then the patient improved clinically markedly with fever, no residual abdominal pain and no leukocytosis. No history of vaginal bleeding. CT scan done on 12/27 showed the following: Overall worsening of complex fluid collection interposed between the inflamed sigmoid colon, left adnexum, uterus, and urinary bladder as well as development of a new 3.4 x 2.7 x 3.0 cm collection inferior to the proximal sigmoid colon. This process is associated with focal area of sigmoid wall thickening over a length of 8-9 cm and may relate to acute diverticulitis with pericolonic abscess, but nn underlying sigmoid neoplasm with perforation and abscess is a another potential diagnosis. Correlation with colonoscopy is necessary after the acute episode. Pelvic ultrasound showed the following: The uterus is anteverted and measures 7.2 x 3.1 x 3.1 cm in dimension. The endometrium is abnormally thickened for a postmenopausal patient measuring 8 mm and heterogeneous appearing. No focal uterine lesion is seen. The right ovary is normal-appearing and measures 1.7 x 1 x 1 cm. The left ovary is not seen. There is an ill-defined heterogeneous hyper and hypoechoic mass in the left pelvis, associated peristalsing bowel and small amount of free fluid. cc:: CC: Shailesh Pacheco MD [facility] Past Medical History Medical History Thyroid disease Hypertension Social History Social History Household Members: Spouse Housing: House Patient Tobacco Use Status: Current everyday Tobacco user Tobacco use type: Cigarette Smoked in Last 30 Days: Yes Patient Interested in Nicotine Replacement: No Use of substances other than those prescribed or required for medical reasons: No Currently Displaying Signs/Symptoms of Drug Intoxication Withdrawal: No Do you feel safe in your current relationship?: Yes Advance Directives: No Advance Directives Information Provided: No Do you have a plan to hurt others: No Plan Recently lost weight without trying: Unsure Nutrition Risks: No Nutritional Risk Patient : No : No Poor oral hygiene: No service: No Meds Allergies Allergy/AdvReac Type Severity Reaction Status Date / Time hydrochlorothiazide Allergy Rash Verified 12/28/23 15:07 Sulfa (Sulfonamide AdvReac Nausea and Verified 12/28/23 15:07 Antibiotics) Vomiting Active Medications: Current Medications Piperacillin Sod/Tazobactam (Sod 3.375 gm/ Sodium Chloride) 50 mls @ 100 mls/hr IV Q6H [facility] Last Infusion: 01/01/24 06:47 Dose: Infused Levothyroxine Sodium (Levothyroxine Sodium 88 Mcg Tablet) 88 mcg PO DAILY@06 [facility] Last Admin: 01/01/24 06:07 Dose: 88 mcg Lorazepam (Lorazepam 0.5 Mg Tablet) 0.5 mg PO Q6H PRN PRN Reason: Anxiety Last Admin: 12/31/23 15:08 Dose: 0.5 mg Losartan Potassium (Losartan Potassium 50 Mg Tablet) 100 mg PO DAILY [facility]; Protocol Last Admin: 01/01/24 07:45 Dose: 100 mg Metoprolol Succinate (Metoprolol Succinate Er 100 Mg Tab.Er.24h) 100 mg PO BEDTIME [facility]; Protocol Last Admin: 12/31/23 20:45 Dose: 100 mg Sodium Chloride (0.9 % Sodium Chloride Flush 3 Ml Syringe) [facility] Last Admin: 01/01/24 07:45 Dose: 3 ml Home Medications ?Medication ?Instructions ?Recorded ?Confirmed ?Last Taken ?Type ibuprofen 200 mg tablet 200 mg PO Q6H PRN Pain 12/28/23 12/28/23 Unknown History levothyroxine 88 mcg tablet 88 mcg PO DAILY@0600 12/28/23 12/28/23 12/28/23 06:00 History losartan 100 mg tablet 100 mg PO DAILY 12/28/23 12/28/23 12/28/23 06:00 History metoprolol succinate 100 mg 100 mg PO BEDTIME 12/28/23 12/28/23 12/27/23 18:00 History tablet,extended release 24 hr CAMPAIGN ADVISOR Physical Exam Vitals Vital signs: Temp Pulse Resp BP Pulse Ox O2 Del Method 96.8 F 60 16 176/87 H 98 Room Air 01/01/24 07:43 01/01/24 07:43 01/01/24 07:43 01/01/24 07:45 01/01/24 07:43 01/01/24 07:43 BMI result Body Mass Index 23.7 CAMPAIGN ADVISOR - Results Labs 12/28/23 15:35 12/28/23 15:35 Labs: Urine 12/29/23 Range/Units 06:33 Urine Color Yellow Urine Appearance Clear Urine pH 6.5 (5.0-9.0) Ur Specific [place] 1.015 (1.005-1.025) Urine Protein Negative (Neg-Trace) mg/dL Urine Glucose (UA) Negative (Negative) mg/dL Assessment and Plan (1) Abscess of sigmoid colon: Status: Acute Given the finding on CT scan and pelvic ultrasound, adnexal abscess is not ruled out, although mucous more related to left diverticular disease with the active inflammation then adnexal pathology/absence. Consider MRI of the pelvis to rule out adnexal pathology/abscess. (2) Endometrial thickening on ultrasound: Status: Acute By the time I went to see the patient she was discharged home so I called the patient on the phone, discussed with the patient that her Endometrial thickness by ultrasound is above 4 mm in menopause , the differential diagnosis of a thickened endometrium includes but not limited to endometrial polyp, hyperplasia or carcinoma. Explained to the patient that Endometrial thickness is less predictive of endometrial neoplasia in asymptomatic patients, i.e. those without postmenopausal uterine bleeding. The sensitivity and specificity for detecting endometrial carcinoma at an endometrial thickness of >= 5mm is lower than in patients with bleeding. Recommended endometrial sampling to rule endometrial pathology via either office endometrial biopsy or diagnostic hysteroscopy/D&C with possible polypectomy/myomectomy. Recommended outpatient follow-up within 2 weeks. All questions answered, the patient verbalized. The patient was not seen or examined by me in the hospital, I had a phone conversation with the patient
--- NOTE | 2024-01-01 12:53 | MHC.CM.PN ---
Addendum entered by Ladonna Wright 01/01/24 13:39: DP:PT HAS BEEN MEDICALLY CLEARED FOR DC HOME, NO SERVICES. [facility] WILL TRANSPORT Original Note: EMR REVIEWED. PT MAY DC TODAY PER SURGICAL NOTE, ALSO HAD WOODWORKING BELT SANDER CONSULT. CM WILL CONTINUE TO FOLLOW FOR ANY CHANGE TO DC PLAN/NEEDS.
--- NOTE | 2024-01-01 13:07 | P.EN_ITS ---
Event Note Date of Service: 01/01/24 Event Note: She denies any abdominal pain Tolerating diet well No fever Abdomen soft, no guarding, no rebound, no tenderness Essentially asymptomatic As per blocking machine operator second, endometrial biopsy as an outpatient She wants to go home We will DC home on Augmentin She has a follow up with me next week and we will schedule her for colonoscopy I did tell her that in view of the acute inflammatory process, it may be best to hold off on colonoscopy for now I discussed this with her daughter as well They are both comfortable with the plan Time Spent With Patient Time: Total time managing care of this patient today ____ minutes.
--- NOTE | 2024-01-05 15:09 | PM.DS ---
DS: Providers Provider Date of Service: 01/01/24 Date of admission: 12/28/23 20:45 Primary care physician: Leilani Woodward DO Consults: 12/28/23 20:47 Consult to Hospitalist Routine Comment: Consulting Provider: Hospitalist Reason For Exam: HTN,multiple meds 12/29/23 08:03 Consult to Hospitalist Routine Comment: Consulting Provider: Hospitalist Reason For Exam: HTN, thyroid ds, multiple meds 01/01/24 08:06 Consult to Obstetrics / Gynecology Routine Consulting Provider: Neil Johnson Reason for consultation: Abnormal ultrasound of the pelvis DS: Diagnosis Discharge Diagnosis (1) Abscess of sigmoid colon: Status: Acute DS: Summary Hospital Course Hospital Course: 73 year old female who is in the ER on December 28, 2023 after she was sent by her primary care physician because of CT scan results. She had a CAT scan done yesterday this had shown fluid interposed between her bladder, sigmoid colon and the left adnexa along with a new 3.4 x 2.7 x 3.0 cm collection inferior to the proximal sigmoid colon. This process is thought to be associated with focal area of sigmoid wall thickening over a length of 8-9 cm and may relate toacute diverticulitis with pericolonic abscess, although an underlying neoplastic process could not be ruled out The patient says that she has known diverticulitis from 5 years ago. This was her last episode until had some lower abdominal pain in October,. She says that she saw her primary care physician at that time and she was advised to undergo a CT scan which she had refused. She did take oral antibiotics as prescribed. She says that eventually agreed to have a CT scan done last month because her pain seems to have recurrent. She says that this was not excruciating pain but was more of a low intensity kind of pain on the lower abdomen. She eventually had a CAT scan done last December 15, 2023 showing this likely intramural abscess of the sigmoid. She says that of initial report of the CT scan was not read until December 22 and wants her physician new about this, she was scheduled to have an outpatient follow-up CT scan which was done yesterday. She was then sent to the ER today after the report of this new CT scan from yesterday was sent to her primary care physician. She says that she really did not have any pain at this time although she says she has this periodic no abdominal pain of low intensity off. She denied urinary complaints. She denied any fever or chills at home. She was admitted for IV antibiotics. I reviewed her CAT scan with the interventional radiologist and it was deemed that she had no drainable abscess. There was note of inflammatory process along with some free fluid. No IR drain was therefore placed She was kept on clear liquids for a few days. She was also on IV antibiotics with Zosyn. She had no leukocytosis. She never had any fever during hospital stay. She did not have any significant abdominal pain or tenderness. Her diet was therefore readvanced. She continued to tolerate this without any worsening. Her exam remained very benign In view of this, she was sent home and discharge. She was afebrile and tolerating diet on discharge. The plan was to schedule her for outpatient colonoscopy She was also discharged with a prescription for oral antibiotics with Augmentin. The high pressure boiler operator was also consulted because of intramural thickening. Dr. Johnson had instructed her to follow-up in the office on an outpatient possible endometrial biopsy. Time Attestation Total time managing care of this patient today: 30 mintues. Discharge Coordination Time (in mins): 30 min Quality: Safe Use of Opioids Does Pt have an Active Cancer Diagnosis on the Problem List?: No Quality: Stroke Does the patient have a stroke diagnosis?: No Physical Exam Vital Signs: Vital Signs: Last Vital Signs Temp 96.8 F 01/01/24 07:43 Pulse 60 01/01/24 07:43 Resp 16 01/01/24 07:43 BP 176/87 H 01/01/24 07:45 Pulse Ox 98 01/01/24 07:43 O2 Del Method Room Air 01/01/24 07:43 BMI result Body Mass Index 23.7 Const: General: comfortable and no acute distress Orientation/consciousness: patient oriented x3 Neck: Neck: Yes no lymphadenopathy Resp: Auscultation: clear to auscultation bilaterally Cardio: Rhythm: regular rhythm GI: Palpation (GI): Soft to palpation, nontender and no guarding Neuro: General: patient oriented x3 DS: Data Data Completed and Pending Completed studies during hospitalization [Text1]: Laboratory Results WBC 10.3 X10*3/uL (4.8-10.8) 12/28/23 15:35 RBC 4.52 X10*6/uL (4.20-5.50) 12/28/23 15:35 Hgb 12.7 g/dl (12.0-16.0) 12/28/23 15:35 Hct 38.2 % (37.0-47.0) 12/28/23 15:35 MCV 84.5 fL (80.0-98.0) 12/28/23 15:35 MCH 28.1 pg (27.0-33.0) 12/28/23 15:35 MCHC 33.2 g/dl (31.0-35.0) 12/28/23 15:35 RDW 13.6 % (11.0-16.0) 12/28/23 15:35 Plt Count 418 X10*3/uL (160-400) H 12/28/23 15:35 MPV 9.2 fL (9.4-12.3) L 12/28/23 15:35 Immature Gran % (Auto) 0.6 % (0.0-0.4) H 12/28/23 15:35 Neut % (Auto) 83.4 % (45-73) H 12/28/23 15:35 Lymph % (Auto) 5.3 % (20-40) L 12/28/23 15:35 [place] % (Auto) 9.5 % (2-11) 12/28/23 15:35 Eos % (Auto) 0.9 % (0-4) 12/28/23 15:35 Baso % (Auto) 0.3 % (0-2) 12/28/23 15:35 Lymph # (Auto) 0.6 X10*3/uL (1.2-4.9) L 12/28/23 15:35 [place] # (Auto) 1.0 X10*3/uL (0.1-1.2) 12/28/23 15:35 Eos # (Auto) 0.1 X10*3/uL (0.0-0.4) 12/28/23 15:35 Baso # (Auto) 0.0 X10*3/uL (0.0-0.2) 12/28/23 15:35 Abs Immat Gran (auto) 0.06 X10*3/uL (0.00-0.03) H 12/28/23 15:35 Absolute Neuts (auto) 8.6 x10*3/uL (2.0-8.3) H 12/28/23 15:35 Absolute Nucleated RBC 0.000 X10*3/uL (0.0-0.012) 12/28/23 15:35 Nucleated RBC % (auto) 0.0 /100WBC (0.0-0.2) 12/28/23 15:35 PT 16.7 SEC (11.1-13.3) H 12/28/23 15:35 INR 1.4 (0.9-1.1) H 12/28/23 15:35 Sodium 133 mmol/L (135-145) L 12/28/23 15:35 Potassium 4.0 mmol/L (3.3-5.1) 12/28/23 15:35 Chloride 100 mmol/L (96-108) 12/28/23 15:35 Carbon Dioxide 26 mmol/L (22-29) 12/28/23 15:35 Anion Gap 11 (12-20) L 12/28/23 15:35 BUN 10 mg/dL (9-16) 12/28/23 15:35 Creatinine 0.80 mg/dL (0.5-1.4) 12/28/23 15:35 Estim Creat Clear Calc 52.4 12/28/23 15:35 Estimated GFR > 60 12/28/23 15:35 Random Glucose 110 mg/dL (60-115) 12/28/23 15:35 Lactic Acid 0.9 mmol/L (0.5-2.0) 12/28/23 19:17 Calcium 9.7 mg/dL (8.4-10.2) 12/28/23 15:35 Magnesium 1.9 mg/dL (1.6-2.6) 12/28/23 15:35 Total Bilirubin 0.4 mg/dL (0.0-1.0) 12/28/23 15:35 AST 18 U/L (5-31) 12/28/23 15:35 ALT 13 U/L (0-31) 12/28/23 15:35 Alkaline Phosphatase 53 U/L (39-117) 12/28/23 15:35 Total Protein 7.3 g/dL (6.5-8.0) 12/28/23 15:35 Albumin 3.8 g/dL (3.5-5.0) 12/28/23 15:35 Lipase 14 U/L (8-78) 12/28/23 15:35 Urine Color Yellow 12/29/23 06:33 Urine Appearance Clear 12/29/23 06:33 Urine pH 6.5 (5.0-9.0) 12/29/23 06:33 Ur Specific [place] 1.015 (1.005-1.025) 12/29/23 06:33 Urine Protein Negative mg/dL (Neg-Trace) 12/29/23 06:33 Urine Glucose (UA) Negative mg/dL (Negative) 12/29/23 06:33 Urine Ketones 15 mg/dL (Negative) 12/29/23 06:33 Urine Blood Negative (Negative) 12/29/23 06:33 Urine Nitrite Negative (Negative) 12/29/23 06:33 Ur Leukocyte Esterase Small (1+) (Negative) H 12/29/23 06:33 Urine RBC 0-2 /HPF (0-2) 12/29/23 06:33 Urine WBC 0-5 /HPF (0-5) 12/29/23 06:33 Ur Squamous Epith Cells 3-5 /HPF (0-2) 12/29/23 06:33 Urine Bacteria None Seen (None Seen) 12/29/23 06:33 Hyaline Casts 0-2 /LPF (0-2) 12/29/23 06:33 Impressions Pelvic/Transvag US 12/29/23 13:04 IMPRESSION: Abnormally thickened heterogeneous endometrium. Tissue sampling recommended, especially if there is history of vaginal bleeding. Normal right ovary. Left ovary not seen. Heterogeneous ill-defined hyper and hypoechoic mass in the left pelvis that appears associated with peristalsing bowel and small amount of fluid in the pelvis. Discharge Plan Discharge Anticipated Discharge Date/Time: 01/02/24 09:25 Patient Disposition: Home, Self-Care Discharge Diagnosis: abscess of sigmoid colon Referrals: Leilani Woodward DO [Primary Care Provider] - 1 Week Shailesh Pacheco MD [Physician] - 1 Week Neil Johnson MD [Physician] - 1 Week (for endometrial thickening) Discharge Medications: New amoxicillin-pot clavulanate 875-125 mg tablet 1 tab PO BID Qty: 16 0RF Continued metoprolol succinate 100 mg tablet extended release 24 hr 100 mg PO BEDTIME levothyroxine 88 mcg tablet 88 mcg PO DAILY@0600 losartan 100 mg tablet 100 mg PO DAILY ibuprofen 200 mg Tablet 200 mg PO Q6H PRN (Reason: Pain) Discontinued metronidazole 500 mg tablet 500 mg PO TID levofloxacin 750 mg tablet 750 mg PO DAILY Discharge Orders: Discharge Order (Routine); Ordered 01/01/24 Ordered By: Shailesh Pacheco Diet: Advance to usual diet Activity on Discharge: As tolerated Stand Alone Forms: Patient Portal Discharge page Print Language: Chinese Activity Restrictions/Additional Instructions: Follow up in office in a week with Dr. Pacheco. ([phone]) You will eventually need a colonoscopy as part of your work up. Call Your Doctor If: ? ? -Your temperature exceeds 101.5? F? ? ? -You experience excessive pain or swelling ? ? -You have an unexpected reaction to medication ? ? -You experience continued vomiting/nausea Care Plan Goals: Return to baseline health and resume normal activities. Health Concerns: HTN hypothyroidism Abscess of sigmoid colon Plan of Treatment: IV transitioned to PO abx Eventual colonoscopy f/u in office Assessment: imprpved Discharge Date/Time: 01/01/24 14:39
== END 2024-01-01 14:39 | disposition home or self-care (01) | DRG 392 ==
LOC: HO.ED 19:13 → HO.EDOVER 20:53 → HO.S3 12-29 07:29
PROVIDERS: Physician Assistant; Physician Assistant Medical; Admitting Provider Surgery; Emergency Provider Internal Medicine; PCP Family Medicine; Visit Provider Surgery
DX: K57.20 Diverticulitis of large intestine with perforation and abscess without bleeding (principal); I10 Essential (primary) hypertension; E03.9 Hypothyroidism, unspecified; F17.210 Nicotine dependence, cigarettes, uncomplicated; Z71.6 Tobacco abuse counseling; R93.89 Abnormal findings on diagnostic imaging of other specified body structures; Z79.890 Hormone replacement therapy; Z79.899 Other long term (current) drug therapy
CPT/HCPCS: 36415; 76830; 76856; 80053; 81001; 83605; 83690; 83735; 85025; 85610; 87040; 87086; 99285; J2543

== ENCOUNTER → 2023-12-28 20:45 | Outpatient (BNV) | payer MEDICARE, SELFPAY | PROVIDERS: Admitting Provider Surgery; Emergency Provider Internal Medicine; PCP Family Medicine; Visit Provider Physician Assistant Medical | DX: K63.0 Abscess of intestine (principal) | CPT/HCPCS: 99222 ==

== ENCOUNTER → 2023-12-28 20:45 | Outpatient (BNV) | payer MEDICARE, SELFPAY | PROVIDERS: Admitting Provider Surgery; Emergency Provider Internal Medicine; PCP Family Medicine; Visit Provider Surgery | DX: K63.0 Abscess of intestine (principal) | CPT/HCPCS: 99222; 99232; 99238; 99499 ==

== ENCOUNTER → 2023-12-28 20:45 | Outpatient (BNV) | payer MEDICARE, SELFPAY | PROVIDERS: Admitting Provider Surgery; Emergency Provider Internal Medicine; PCP Family Medicine; Visit Provider Obstetrics & Gynecology | DX: K63.0 Abscess of intestine (principal); R93.89 Abnormal findings on diagnostic imaging of other specified body structures | CPT/HCPCS: 99499 ==

== ENCOUNTER 2024-01-10 13:43 | Outpatient (AMB) | payer OTHER, SELFPAY ==
--- NOTE | 2024-01-10 13:44 | MHC.OFFVIS ---
Vital Signs 01/10/24 14:11 BP 173/78 H Blood Pressure Location Lt brachial Position Sitting Pulse 83 Pulse Oximetry (%) 99 Intake Visit Reasons: abscess of sigmoid colon Intake Note: This patient presents for a four month follow-up for abdominal wall hernia. Patient c/o; reports completed abx this morning. Geriatric Psychiatrist Required: No Accompanied by: Family/Other Allergies hydrochlorothiazide Allergy (Verified 01/10/24 14:13) Rash Sulfa (Sulfonamide Antibiotics) Adverse Reaction (Verified 01/10/24 14:13) Nausea and Vomiting Medication List - Last Reconciled 01/10/24 by Shailesh Pacheco MD amoxicillin-pot clavulanate 875-125 mg 1 tab PO BID ibuprofen 200 mg PO Q6H PRN levothyroxine 88 mcg PO DAILY@0600 losartan 100 mg PO DAILY metoprolol succinate ER 100 mg PO BEDTIME HPI HPI abscess of sigmoid colon : Details: 73-year-old female here in the office for follow-up. She had been admitted last December 27 to 01/01/[address] because of [address] outpatient CT scan suggesting diverticulitis of the sigmoid with a possible abscess. She however did not have any significant pain during her admission. She had good GI functions. She did not have any fever. I had reviewed her CAT scans with the IR radiologist and it was deemed that there was no drainable abscess. She was discharged on oral antibiotics. She denies any abdominal pain although she does state that mornings whenever she has a bowel movement, she would have this pain on the lower abdomen. However, she does not notice this the rest of the day She has good oral intake. She denies any fever or chills. She feels well overall. She remains active. [facility] Medical History Thyroid disease Hypertension Social History Household Members: Spouse Housing: House Patient Tobacco Use Status: Current everyday Tobacco user Tobacco use type: Cigarette service: No Review of Systems Const Denies chills and Denies fever(s) Card Denies chest pain, Denies dyspnea and Denies dyspnea on exertion Resp Denies cough, Denies dyspnea and Denies dyspnea on exertion GI Denies hematochezia and Denies change in bowel habits Denies hematuria Musc Denies back pain and Denies limited range of motion Neuro Denies focal weakness and Denies convulsions Psych Denies depression and Denies mood swings Physical Exam Const General: comfortable and no acute distress Orientation/consciousness: patient oriented x3 Neck Neck: Yes no lymphadenopathy Resp Auscultation: clear to auscultation bilaterally Cardio Rhythm: regular rhythm GI Other: No tenderness at this time on exam Palpation (GI): Soft to palpation, nontender and no guarding Neuro General: patient oriented x3 Assessment & Plan Assessment & Plan (1) Abscess of sigmoid colon: Code(s): K63.0 - Abscess of intestine Category: Medical Plan: She is doing well clinically. She does not have any significant pain or tenderness. She has good oral intake and denies any fever or chills I am going to order for a follow-up CT scan. I will see her in the office thereafter. Her exam remains very benign. She should have a colonoscopy down the line as she has never had 1 before. She also is scheduled to see Dr. Johnson for her endometrial thickening seen on an ultrasound. Orders: Orders CT abdomen pelvis w IV con Today K63.0 - Abscess of intestine Coding Level of Care Code Est Pt Level 3 (01151) Diagnoses Abscess of sigmoid colon K63.0
[2024-01-10 14:11] VITALS: BP 173/78; PULSE 83; O2SAT 99
== END 2024-01-10 14:26 | disposition home or self-care (01) ==
PROVIDERS: PCP Family Medicine; Referring Provider Family Medicine; Visit Provider Surgery
DX: K63.0 Abscess of intestine (principal)
CPT/HCPCS: 99213

== ENCOUNTER → 2024-01-10 13:43 | Outpatient (BNVA) | payer OTHER, SELFPAY | PROVIDERS: PCP Family Medicine; Referring Provider Family Medicine; Visit Provider Surgery ==

== ENCOUNTER 2024-01-16 09:54 | Outpatient (REF) | payer MEDICARE, SELFPAY ==
[2024-01-19 03:02] LABS: HPV mRNA E6/E7 Not Detected (Not Detected)
== END 2024-01-16 09:55 | disposition home or self-care (01) ==
LOC: HO.LNP 09:54
PROVIDERS: PCP Family Medicine; Visit Provider Obstetrics & Gynecology
DX: N84.1 Polyp of cervix uteri (principal); R93.89 Abnormal findings on diagnostic imaging of other specified body structures
CPT/HCPCS: 87624; 88175; 99212

== ENCOUNTER 2024-01-16 09:54 | Outpatient (AMB) | payer MEDICARE, SELFPAY ==
--- NOTE | 2024-01-16 09:58 | MHC.OFFVIS ---
Vital Signs 01/16/24 10:03 Height 5 ft 4 in Weight 127 lb BMI 21.8 BP 130/70 Intake Visit Reasons: Consult/ EMB Call Center Operator Required: No Information Interpreted: non-clinical & clinical Manager Heavy Duty: Manager Heavy Duty Present (Carina CHRISTIANSEN) Accompanied by: Self / Same As Patient Allergies hydrochlorothiazide Allergy (Verified 01/16/24 10:04) Rash Sulfa (Sulfonamide Antibiotics) Adverse Reaction (Verified 01/16/24 10:04) Nausea and Vomiting Is last menstrual period known: Yes Last menstrual period: 05/21/20 Post menopausal: Yes Patient : No Do you need a note to return to daycare/school/sports/work: Yes (for surgery on monday) HPI Comments Details: Presenting for consult regarding abnormal endometrium by ultrasound. The patient is doing well with no complaints. No history of vaginal bleeding. No history of abnormal Pap smears. Pelvic ultrasound done recently showed the following: The uterus is anteverted and measures 7.2 x 3.1 x 3.1 cm in dimension. The endometrium is abnormally thickened for a postmenopausal patient measuring 8 mm and heterogeneous appearing. No focal uterine lesion is seen. The right ovary is normal-appearing and measures 1.7 x 1 x 1 cm. The left ovary is not seen. There is an ill-defined heterogeneous hyper and hypoechoic mass in the left pelvis, associated peristalsing bowel and small amount of free fluid. [facility] Medical History Thyroid disease Hypertension Surgical History Hx of tonsillectomy Family History Mother HTN (hypertension) Father Pancreas cancer Social History Household Members: Spouse Housing: House Alcohol intake: current Patient Tobacco Use Status: Current everyday Tobacco user Tobacco use type: Cigarette Cigarettes Per Day: 2 Years Smoked: 50 service: No Current occupational status: retired Sexual orientation: Straight/Heterosexual Gender identity: Female Female Reproductive History Menstrual Date of last menstrual period: 05/21/20 Total pregnancies: 2 Full term: 2 Number of Living Children: 2 Review of Systems Const All systems reviewed & are unremarkable except as noted in HPI and below Card Reports as per HPI and Reports no additional complaints Resp Reports as per HPI and Reports no additional complaints GI Reports as per HPI and Reports no additional complaints Reports as per HPI Physical Exam Vital Signs: Last Vital Signs BP 130/70 01/16/24 10:03 BMI result Body Mass Index 21.8 Const General: cooperative, healthy appearing and comfortable Resp Effort & Inspection: normal respiratory effort Auscultation: clear to auscultation bilaterally Percussion: percussion normal Cardio Palpation: normal PMI Rate: regular rate Rhythm: regular rhythm Heart sounds: no murmurs and no rubs Peripheral pulses: Peripheral pulses 2+ throughout GI Inspection: Yes normal to inspection Palpation (GI): Soft to palpation, nontender, no guarding, not rigid and No hepatosplenomegaly present Percussion: Yes normal to percussion Auscultation: normal bowel sounds Rectal Exam - Female: deferred General: Yes no CVA tenderness External Female Exam: normal external appearance and normal appearance of the urethra Speculum Exam - Vagina: normal appearance of the vagina, normal palpation, no lesions and no masses Speculum Exam - Cervix: normal appearance of the cervix, normal palpation, no lesions, no masses, nontender and Other cervical findings present (Endocervical polyp) Bimanual exam- vagina & uterus: normal bimanual exam, normal palpation, uterine size normal, normal palpation, uterine shape normal, No Cervical tenderness present and non-tender Bimanual Exam- Adnexa, other: normal adnexae Back/Spine/Pelvis Back: no CVA tenderness Assessment & Plan Assessment & Plan (1) Endometrial thickening on ultrasound: Code(s): R93.89 - Abnormal findings on diagnostic imaging of other specified body structures Category: Medical Plan: Co testing done. Discussed with the patient endometrial thickness above 4 mm in menopause , the differential diagnosis of a thickened endometrium includes but not limited to endometrial polyp, hyperplasia or carcinoma. Explained to the patient that endometrial each thickness is less predictive of endometrial neoplasia in asymptomatic patients, i.e. those without postmenopausal uterine bleeding. The sensitivity and specificity for detecting endometrial carcinoma at an endometrial thickness of >= 5mm was 83 and 72 percent, respectively; this is lower than in patients with bleeding. Studies have shown that postmenopausal patients without uterine bleeding who had an endometrial thickness >11 mm had an endometrial carcinoma risk of 6.7 percent; this risk is similar to postmenopausal patients with bleeding and an endometrial thickness >5 mm. Recommended endometrial sampling to rule endometrial pathology via either office endometrial biopsy or diagnostic hysteroscopy/D&C with possible polypectomy/myomectomy. All pros and cons, risks and benefits of each approach were discussed with the patient, the patient decided to proceed with hysteroscopy D&C possible polypectomy/myomectomy. Discussed with the patient the procedure , all benefits and risks including but not limited to inability to complete the procedure , insufficient endometrial tissue for a complete evaluation of the endometrial cavity , bleeding, infection, possible need for blood transfusion with all its risk ( HIV,syphilis, Hepatitis, anaphylaxis shock, others..), injury to bladder, rectum, possible need for laparoscopy/laparotomy or hysterectomy. The patient verbalized understanding and signed the consent. Instructions given the patient to stay NPO after midnight the day prior to the procedure and to take only the specific medication (s) discussed the morning of the surgical procedure and to schedule a 2 week postoperative appointment (2) Endocervical polyp: Code(s): N84.1 - Polyp of cervix uteri Category: Medical Plan: Discussed with the patient the finding on pelvic exam showing endocervical polyp. Since the patient is scheduled for hysteroscopy D&C possible polypectomy, polypectomy will done under anesthesia Coding Level of Care Code Est Pt Level 3 (99390) Diagnoses Endometrial thickening on ultrasound R93.89 Endocervical polyp N84.1
[2024-01-16 10:03] VITALS: BP 130/70; BMI 21.8
== END 2024-01-16 10:55 | disposition home or self-care (01) ==
PROVIDERS: PCP Family Medicine; Visit Provider Obstetrics & Gynecology
DX: R93.89 Abnormal findings on diagnostic imaging of other specified body structures (principal); N84.1 Polyp of cervix uteri
CPT/HCPCS: 99213

== ENCOUNTER 2024-01-19 11:33 | Day surgery (SDC) | payer MEDICARE, SELFPAY ==
--- NOTE | 2024-01-17 14:08 | P.CONAN_ITS ---
Documented by User: Ariadne Underwood NP 01/17/24 14:09 HPI - Anesthesia Eval Consult details Narrative: 73yo F for D&C Hysteroscopy,possivle myomectomy,possible polypectomy PMFSH Active Problems Active Problems: All Active Problems Endocervical polyp (Acute) Endometrial thickening on ultrasound (Acute) Thyroid disease (Acute) Hypertension (Acute) Abscess of sigmoid colon (Acute) Past Medical History Medical History Thyroid disease Hypertension Family History Family History Mother HTN (hypertension) Father Pancreas cancer Surgical History Surgical History Hx of tonsillectomy Social History Social History Household Members: Spouse Housing: House Alcohol intake: current Patient Tobacco Use Status: Current everyday Tobacco user Tobacco use type: Cigarette Cigarettes Per Day: 2 Years Smoked: 50 Advance Directives: No Advance Directives Information Provided: Yes service: No Current occupational status: retired Sexual orientation: Straight/Heterosexual Gender identity: Female Meds Allergies Allergy/AdvReac Type Severity Reaction Status Date / Time hydrochlorothiazide Allergy Rash Verified 01/16/24 10:04 Sulfa (Sulfonamide AdvReac Nausea and Verified 01/16/24 10:04 Antibiotics) Vomiting Home Medications ?Medication ?Instructions ?Recorded ?Confirmed ?Last Taken ?Type ibuprofen 200 mg tablet 200 mg PO Q6H PRN Pain 12/28/23 01/10/24 Unknown History levothyroxine 88 mcg tablet 88 mcg PO DAILY@0600 12/28/23 01/10/24 12/28/23 06:00 History losartan 100 mg tablet 100 mg PO DAILY 12/28/23 01/10/24 12/28/23 06:00 History metoprolol succinate 100 mg 100 mg PO BEDTIME 12/28/23 01/10/24 12/27/23 18:00 History tablet,extended release 24 hr Exam Pertinent Lab Results Pertinent Lab Results: Laboratory Tests 12/28/23 15:35 WBC 10.3 Hgb 12.7 Hct 38.2 Plt Count 418 H Sodium 133 L Potassium 4.0 Chloride 100 Carbon Dioxide 26 BUN 10 Creatinine 0.80 Assessment and Plan Assessment Anesthesia Assessment: Chart Reviewed Documented by User: Christal Chin MD 01/19/24 11:40 [facility] Past Medical History Medical History Thyroid disease Hypertension Family History Family History Mother HTN (hypertension) Father Pancreas cancer Family history of problems with anesthesia: No Surgical History Surgical History Hx of tonsillectomy History of Problems with Anesthesia: No Social History Social History Household Members: Spouse Housing: House Alcohol intake: current Patient Tobacco Use Status: Current everyday Tobacco user Tobacco use type: Cigarette Cigarettes Per Day: 2 Years Smoked: 50 Advance Directives: No Advance Directives Information Provided: Yes service: No Current occupational status: retired Sexual orientation: Straight/Heterosexual Gender identity: Female Meds Allergies Allergy/AdvReac Type Severity Reaction Status Date / Time hydrochlorothiazide Allergy Rash Verified 01/16/24 10:04 Sulfa (Sulfonamide AdvReac Nausea and Verified 01/16/24 10:04 Antibiotics) Vomiting Home Medications ?Medication ?Instructions ?Recorded ?Confirmed ?Last Taken ?Type ibuprofen 200 mg tablet 200 mg PO Q6H PRN Pain 12/28/23 01/10/24 Unknown History levothyroxine 88 mcg tablet 88 mcg PO DAILY@0600 12/28/23 01/10/24 12/28/23 06: 00 History losartan 100 mg tablet 100 mg PO DAILY 12/28/23 01/10/24 12/28/23 06:00 History metoprolol succinate 100 mg 100 mg PO BEDTIME 06/0601/10/24 12/27/23 18:00 History tablet,extended release 24 hr Exam Airway Mallampati Class: II TM Dist: >3cm Neck ROM: Limited Heart: rrr Lungs: cta Assessment and Plan Assessment Anesthesia Assessment: Anesthesia Plan Discussed Final Anesthetic Review Family History of Problems with Anesthesia: No History of Problems with Anesthesia: No NPO: Yes ASA Class: II Final Preanesthetic Review: No Changes in Pt Med Stat, Meds/Allgs Chart Reviewed, Consent Obtained/Reviewed and Anes Risks/Benef Reviewed Patient Risk: Low Procedure Risk: Low Anesthetic Plan Anesthetic Plan: GA Disposition: Standard PACU
[2024-01-19 11:52] VITALS: BMI 21.8
[2024-01-19 12:11] VITALS: BP 167/89; PULSE 79; RESP 18; TEMP 36.9; O2SAT 99
[2024-01-19] MEDS: Lactated Ringers 1,000 ML 100 ML IVCONT (12:13)
--- NOTE | 2024-01-19 12:18 | MHC.SHP ---
Pre-Procedural Eval Section A - 24 Hr Update-Section A only Date of Service: 01/19/24 The patient is an INPATIENT: No Changes since office visit: No Cold of Flu in the past 2 weeks, No New Medical Problems, No Changes in Medication and No Patient answered all questions The patient has been examined within 24 hours of the surgical procedure. The History & Physical has been completed within 30 days and I have reviewed it.: Yes Section B - Complete if H&P > 30 days Chief Complaint: Abnormal findings on diagnostic imaging Allergies: Allergies Allergy/AdvReac Type Severity Reaction Status Date / Time hydrochlorothiazide Allergy Rash Verified 01/16/24 10:04 Sulfa (Sulfonamide AdvReac Nausea and Verified 01/16/24 10:04 Antibiotics) Vomiting Plan Diagnosis/Plan: Unchanged I have reviewed the history and physical and performed a pertinent physical examination on my patient. No changes have occurred unless specified. Time Spent With Patient Time: Total time managing care of this patient today ____ minutes.
--- NOTE | 2024-01-19 13:51 | PM.OP ---
Brief Operative Note Date of Service: 01/19/24 Pre-op diagnosis: Endocervical polyp and thickened endometrium by ultrasound Post-op diagnosis: same (Endocervical polyp, endometrial polyp) Procedure: Hysteroscopy D&C, endocervical and endometrial Polypectomy Surgeon: Neil Johnson MD Anesthesia: GLMA Was an Communications Maintainer used for this Procedure?: No Estimated blood loss (mL): 0 Pathology: other (Endometrial Scrapping. Endocervical Polyp. Endometrial polyp) Condition: stable Disposition: PACU
--- NOTE | 2024-01-19 13:52 | W.PM.OPN ---
Operative Note Operative Note Date of Service: 01/19/24 Narrative: Preop Diagnosis: Thickened endometrium by US, endocervical polyp Operation: Endocervical polypectomy with Diagnostic Hysteroscopy, Dilataion & Curettage and endometrial polypectomy Post Op Diagnosis: Endocervical and Endometrial Polyp QBL: Minimal Anesthesia: GLMA Surgeon: Neil Johnson MD Security Clerk: None Complication: None Pathology: Endometrial Scrapings, endocervical and Endometrial polyp Procedure: The patient was put in the dorsal lithotomy position, scrubbed, and draped in the usual manner. A sterile speculum was inserted in the patient's vagina. Inspection revealed endocervical polyp. Using Migdalia clamp endocervical polyp was grasped and was excised using cautery. The anterior lip of the cervix was the grasped with a single tooth tenaculum. The cervix was dilated up to 5 mm, then the scope was inserted in the patient's uterus. Inspection revealed endometrial polyp. The Myosure Reach device was used; it was introduced through the operative channel and polypectomy done with no complications. The scope was then taken out from the uterine cavity, sharp curettings was carried on with minimal to moderate amount of tissues retrieved. At the end of the procedure, all instruments were taken out of the patient uterine and vaginal cavity. The single tooth tenaculum was removed and homeostasis was assured using pressure,. The patient tolerated the procedure well and was transferred to the PACU in a stable condition.
[2024-01-19 14:00] VITALS: BP 156/77; PULSE 70; RESP 12; TEMP 36.4; O2SAT 97
[2024-01-19 14:05] VITALS: BP 167/81; PULSE 79; RESP 14; O2SAT 97
[2024-01-19 14:10] VITALS: BP 161/84; PULSE 72; RESP 16; O2SAT 97
[2024-01-19 14:15] VITALS: BP 160/82; PULSE 75; RESP 16; O2SAT 97
[2024-01-19 14:27] VITALS: BP 155/74; PULSE 62; RESP 16; TEMP 36.1; O2SAT 97
== END 2024-01-19 15:02 | disposition home or self-care (01) ==
PROVIDERS: PCP Family Medicine; Visit Provider Obstetrics & Gynecology
PROC: 0UDB8ZZ Extraction of Endometrium, Via Natural or Artificial Opening Endoscopic (ICD-10-PCS; CPT 58558; principal; 2024-01-19 13:40)
DX: N84.0 Polyp of corpus uteri (principal); N84.1 Polyp of cervix uteri; I10 Essential (primary) hypertension; E07.9 Disorder of thyroid, unspecified; F17.210 Nicotine dependence, cigarettes, uncomplicated; Z80.0 Family history of malignant neoplasm of digestive organs; Z79.1 Long term (current) use of non-steroidal anti-inflammatories (NSAID); Z79.899 Other long term (current) drug therapy; Z88.2 Allergy status to sulfonamides; Z88.8 Allergy status to other drugs, medicaments and biological substances
CPT/HCPCS: 58558; 88305; J1100; J2405; J2704; J3010

== ENCOUNTER → 2024-01-19 11:33 | Outpatient (BNV) | payer MEDICARE, SELFPAY | PROVIDERS: PCP Family Medicine; Visit Provider Obstetrics & Gynecology | DX: N84.0 Polyp of corpus uteri (principal); N84.1 Polyp of cervix uteri | CPT/HCPCS: 58558 ==

== ENCOUNTER 2024-01-23 13:19 | Outpatient (REF) | payer MEDICARE, SELFPAY ==
--- NOTE | ~2024-01-23 | CT_ITS ---
EXAMINATION: CT ABDOMEN AND PELVIS WITH CONTRAST CLINICAL INFORMATION: Colonic abscess, monitor fluid accumulation COMPARISON: CT abdomen and pelvis 12/27/2023, 12/15/2023 TECHNIQUE: Multidetector volumetric images were obtained from the superior aspect of the liver through the pubic symphysis following administration 85 mL of Omnipaque 350 intravenous contrast. Sagittal and coronal reformatted images were obtained on the technologist's workstation. Oral contrast: No This CT examination was performed using dose optimization techniques as appropriate, variously including the following: *Automated exposure control *Adjustment of mA and/or kV according to patient size (this includes techniques or standardized protocols for targeted exams where dose is matched to indication/reason for exam; i.e. extremities or head) *Use of iterative reconstruction technique DLP: 272 mGy-cm FINDINGS: LUNG BASES: Unremarkable. ABDOMINAL AND PELVIC WALL: Small umbilical hernia containing fluid. LIVER AND BILIARY TREE: Stable subcentimeter left hepatic lobe hypodensity too small to characterize. GALLBLADDER: Unremarkable. PANCREAS: Unremarkable. SPLEEN: Unremarkable. ADRENAL GLANDS: Unremarkable. KIDNEYS AND URETERS: Bosniak 2 left renal cysts, no follow up imaging recommended. GASTROINTESTINAL TRACT: Again noted is colonic diverticulosis with sigmoid wall thickening and pericolonic inflammatory change and fluid in the with degree of sigmoid wall thickening persistent though slightly decreased from prior. There is new pericolonic inflammatory change and fascial thickening involving the descending colon and splenic flexure suspicious for superimposed acute diverticulitis. The inflammatory changes involving the sigmoid colon are inseparable from the left adnexa, uterus, and bladder. There is loculated pelvic free fluid as well as rim enhancement collections of fluid and gas suggesting evolving abscesses. Previously a single larger abscess was seen which is now several smaller collections of fluid and gas for example a 1.9 cm rim-enhancing collection of fluid and gas interposed between the colon and bladder, and 2 adjacent rim-enhancing collections of fluid in gas in the left pelvis measuring 2.2 and 1.6 cm, previously a larger dominant collection measuring at least 7.3 cm. There is increased volume of loculated fluid in the anterior left pelvis measuring 7.0 cm in span, previously 3.8 cm in span however without any rim enhancement or gas within the region as well and similar volume of simple free fluid in the pelvis. No definitively new abscesses or new foci of extraluminal air to suggest interval reperforation. The appendix is normal in caliber. VASCULAR: Atherosclerosis of the abdominal aorta. LYMPH NODES/PERITONEUM: No lymphadenopathy. BLADDER: There is new gas within the urinary bladder and posterior bladder wall suggesting that there is fistulous communication between the colon, perivesicular abscess and bladder. There is wall thickening involving the dome of the posterior wall of the bladder. PELVIC VISCERA: There is a dilated fluid-filled tubular structure in the left adnexa suggesting a moderate hydrosalpinx measuring approximately 1.9 cm in thickness, similar to prior. There is endometrial thickening and enhancement abnormal in this postmenopausal patient measuring up to 1.4 cm in thickness has recently characterized on prior pelvic ultrasound. OSSEOUS STRUCTURES: Minimal degenerative disc disease with grade 1 anterolisthesis of L5 on S1. CT/CT abdomen pelvis w IV con IMPRESSION: 1. Again noted is colonic diverticulosis with sigmoid wall thickening and pericolonic inflammatory change in the pelvis with degree of sigmoid wall thickening persistent though slightly decreased from prior, which may reflect resolving sigmoid diverticulitis however underlying inflammatory malignancy could appear similar and recommend correlation with colonoscopy when deemed clinically appropriate. However, there is new pericolonic inflammatory change and fascial thickening involving the descending colon and splenic flexure suspicious for superimposed acute diverticulitis. 2. The inflammatory changes involving the sigmoid colon are inseparable from the left adnexa, uterus, and bladder. There is loculated pelvic free fluid with the degree of loculated fluid increased from prior, as well as rim-enhancing collections of fluid and gas again seen suggesting evolving abscesses and what was previously a single larger is now several smaller abscesses measuring up to 2.2 cm, previously measuring at least 7.3 cm. There are no new abscesses or new extraluminal intraperitoneal free air to suggest interval reperforation. 3. There is new gas within the urinary bladder and posterior bladder wall suggesting that there is fistulous communication between the colon, perivesicular abscess and bladder, with bladder wall thickening. 4. There is a dilated fluid-filled tubular structure in the left adnexa suggesting a moderate hydrosalpinx measuring approximately 1.9 cm in thickness, similar to prior. 5. There is endometrial thickening and enhancement abnormal in this postmenopausal patient measuring up to 1.4 cm in thickness has recently characterized on prior pelvic ultrasound which warrants gynecologic evaluation and sampling to exclude malignancy. The findings and recommendations were discussed with Shailesh Pacheco MD by telephone at 01/31/2024 1:13 PM and it was ascertained that the content and urgency of the report was understood at the time of direct communication.
[2024-01-23] MEDS: iohexoL 350 MG/ML 75 ML INFUS..BTL 85 ML IV (15:05)
== END 2024-01-23 13:20 | disposition home or self-care (01) ==
LOC: HO.CT 13:19
PROVIDERS: PCP Family Medicine; Visit Provider Surgery
DX: K63.0 Abscess of intestine (principal)
CPT/HCPCS: 74177; Q9967

== ENCOUNTER 2024-02-01 12:26 | Outpatient (AMB) | payer MEDICARE, SELFPAY ==
[2024-02-01 12:39] VITALS: BP 118/66; BMI 21.8
--- NOTE | 2024-02-01 12:39 | MHC.OFFVIS ---
Vital Signs 02/01/24 12:39 Height 5 ft 4 in Weight 127 lb BMI 21.8 BP 118/66 Intake Visit Reasons: post op Parachute Panel Joiner Required: No Information Interpreted: non-clinical & clinical Accompanied by: Spouse Allergies hydrochlorothiazide Allergy (Verified 02/01/24 12:42) Rash Sulfa (Sulfonamide Antibiotics) Adverse Reaction (Verified 02/01/24 12:42) Nausea and Vomiting Post menopausal: Yes HPI Comments Details: The patient is presenting post hysteroscopy polypectomy/D&C no complaints minimal vaginal bleeding no feverishness chills or abdominal pain. The pathology showed the following: A. Endocervical polyp, resection: Benign endocervical/cervical polyp with endocervical cysts and atrophic squamous epithelium; no atypia or carcinoma. B. Endometrial polyp, resection: Fragments of benign endometrial polyp and benign endometrial/ endocervical polyp; no atypia or carcinoma. C. Endometrium, curettage: Benign atrophic endometrium; no atypia or carcinoma. [facility] Medical History Thyroid disease Hypertension Surgical History Hx of tonsillectomy Family History Mother HTN (hypertension) Father Pancreas cancer Social History Household Members: Spouse Housing: House Alcohol intake: current Alcohol intake frequency: holidays/special occasions only Patient Tobacco Use Status: Current everyday Tobacco user Tobacco use type: Cigarette Cigarettes Per Day: 2 Years Smoked: 50 service: No Current occupational status: retired Sexual orientation: Straight/Heterosexual Gender identity: Female Review of Systems Const All systems reviewed & are unremarkable except as noted in HPI and below Reports as per HPI and Reports no additional complaints GI Reports no additional complaints Reports no additional complaints Physical Exam Vital Signs: Last Vital Signs BP 118/66 02/01/24 12:39 BMI result Body Mass Index 21.8 Assessment & Plan Assessment & Plan (1) Endometrial thickening on ultrasound: Comment: Status post hysteroscopic polypectomy D and C was endocervical polypectomy Code(s): R93.89 - Abnormal findings on diagnostic imaging of other specified body structures Category: Medical Plan: Discussed with the patient the intraoperative finding and the pathology results. Discussed with the patient the sensitivity, specificity, positive and negative predictive value, of D and C in detecting endometrial pathology including but not limited to endometrial hyperplasia, cancer and other pathology; instructed the patient to call in case vaginal bleeding bleeding recurs, the next step will be to proceed with further endometrial sampling evaluation to rule out addition endometrial pathology. All questions answered and the patient verbalized understanding and agreed with the plan. Coding Level of Care Code Est Pt Level 3 (10546) Diagnoses Endometrial thickening on ultrasound R93.89
== END 2024-02-01 12:52 | disposition home or self-care (01) ==
LOC: HO.HWS 12:26
PROVIDERS: PCP Family Medicine; Visit Provider Obstetrics & Gynecology
DX: R93.89 Abnormal findings on diagnostic imaging of other specified body structures (principal)
CPT/HCPCS: 99213

== ENCOUNTER → 2024-02-01 12:26 | Outpatient (BNVA) | payer MEDICARE, SELFPAY | PROVIDERS: PCP Family Medicine; Visit Provider Obstetrics & Gynecology | DX: K63.0 Abscess of intestine (principal); R93.89 Abnormal findings on diagnostic imaging of other specified body structures | CPT/HCPCS: 99212 ==

== ENCOUNTER 2024-02-01 14:27 | Outpatient (AMB) | payer MEDICARE, SELFPAY ==
--- NOTE | 2024-02-01 14:48 | A.OFFVIS_ITS ---
Vital Signs 02/01/24 14:55 Height 5 ft 4 in Weight 126 lb 15.992 oz BMI 21.8 Intake Visit Reasons: diverticulitis Intake Note: This patient presents for an assessment for diverticulitis. Patient c/o; reports no changes at this time. 01/23/2024: Abd/pelvis CT Horse Trekking Guide Required: No Accompanied by: Family/Other Allergies hydrochlorothiazide Adverse Reaction (Intermediate, Verified 02/08/24 07:29) Rash sun rash Sulfa (Sulfonamide Antibiotics) Adverse Reaction (Mild, Verified 02/08/24 07:29) Nausea and Vomiting HPI HPI diverticulitis: Details: 73-year-old female here in the office for follow-up. She had been admitted last December 27 to 01/01/[address] because of an outpatient CT scan suggesting diverticulitis of the sigmoid with a possible abscess. She however did not have any significant pain during her admission. She had good GI functions. She did not have any fever. I had reviewed her CAT scans with the IR radiologist and it was deemed that there was no drainable abscess. She was discharged on oral antibiotics. She denies any abdominal pain although she does state that mornings whenever she has a bowel movement, she would have this pain on the lower abdomen. However, she does not notice this the rest of the day She has good oral intake. She denies any fever or chills. I would seen her 2 weeks ago for follow-up and I had scheduled for a CT scan which was done last week She continues to feel well overall. She remains active. She does admit that she has this abdominal pain with bowel movements although this does not last. She also says that she is noticed her urine to be more cloudy the past couple of weeks and describes a little bit of pain with urination although this does not last either. [facility] Medical History Wears dentures Hypothyroidism Diverticulitis Thyroid disease Hypertension Surgical History History of dilatation and curettage (01/19/24) Hx of tonsillectomy Family History Mother HTN (hypertension) Father Pancreas cancer Social History Household Members: Spouse Housing: House Are you a primary childcare director to a significant other at home: No Do you presently have visiting nurse or other home services: No Alcohol intake: current Alcohol intake frequency: holidays/special occasions only Patient Tobacco Use Status: Current everyday Tobacco user Tobacco use type: Cigarette Cigarettes Per Day: 5 Years Smoked: 50 Smoked in Last 30 Days: Yes Use of substances other than those prescribed or required for medical reasons: No Have you been hit, kicked, punched, or otherwise hurt by someone within the past year? If so, by whom?: No Are you DNR?: No Advance Directives: No Advance Directives Information Provided: Yes Advance Directives on File: No Recently lost weight without trying: Yes How much weight loss: 14-23 pounds Nutrition Risks: Surgical patient >75years service: No Current occupational status: retired Sexual orientation: Straight/Heterosexual Gender identity: Female Review of Systems Const Denies chills and Denies fever(s) Card Denies chest pain, Denies dyspnea and Denies dyspnea on exertion Resp Denies cough, Denies dyspnea and Denies dyspnea on exertion GI Denies hematochezia and Denies change in bowel habits Denies hematuria Musc Denies back pain and Denies limited range of motion Neuro Denies focal weakness and Denies convulsions Psych Denies depression and Denies mood swings Physical Exam Vital Signs: BMI result Body Mass Index 21.8 Const Other: Looks well General: comfortable and no acute distress Orientation/consciousness: patient oriented x3 Neck Neck: Yes no lymphadenopathy Resp Auscultation: clear to auscultation bilaterally Cardio Rhythm: regular rhythm GI Palpation (GI): Soft to palpation, nontender and no guarding Neuro General: patient oriented x3 Assessment & Plan Assessment & Plan (1) Abscess of sigmoid colon: Code(s): K63.0 - Abscess of intestine Category: Medical Plan: This is likely secondary to diverticular disease. I had repeated her CT scan last week and the report came back yesterday. This shows persistent says abscess collection in the pelvis surrounding the sigmoid although this appeared to be smaller but loculated. However, there was note of a new finding of air in the bladder consistent with a colovesical fistula. I therefore explained to her that we will need to proceed with resection of this diseased area of the sigmoid and a likely colostomy. I explained to her that we can do it as a hand assisted laparoscopic procedure but there has a likelihood that we may need to do a full laparotomy. I explained the risks including but not limited to bleeding, infections, injury to other organs including bowel, further abscess, blood clots, pneumonia, as well as the benefits and alternatives. She understands that she will need to be in the hospital for an extended period of time because of this. I will review the images with IR although they have stated that she is not a candidate for IR drainage in view of the loculations associated with the collection. She had a recent endometrial biopsy which did not suggest malignancy. I will also discuss her case with the urologist Her family, including her son Quirino was involved with the above discussion. She has never had any colonoscopy in the past. However, I feel that it is more urgent to do sigmoid resection at this time because of the risk of urosepsis from the colovesical fistula especially in the presence of persistent inflammatory changes surrounding the sigmoid. Furthermore, doing colonoscopy at this time puts the patient at risk for perforation in view of the ongoing inflammation in the sigmoid. Overall clinical picture does not suggest an ongoing malignancy. The patient a lso says that her mother had diverticulitis and a colovesical fistula as well. Medications: New sodium,potassium,mag sulfates 17.5-3.13-1.6 gram DILUTE; drink full amount early evening before AND next morning at least 2 hr before procedure; follow w 960 mL water PO 354 mL 0RF Coding Level of Care Code Est Pt Level 4 (12868) Diagnoses Abscess of sigmoid colon K63.0
[2024-02-01 14:55] VITALS: BMI 21.8
== END 2024-02-01 15:29 | disposition home or self-care (01) ==
PROVIDERS: PCP Family Medicine; Visit Provider Surgery
DX: K63.0 Abscess of intestine (principal)
CPT/HCPCS: 99214

== ENCOUNTER → 2024-02-06 | Outpatient (BNV) | payer MEDICARE, SELFPAY | PROVIDERS: Admitting Provider Surgery; PCP Family Medicine; Visit Provider Internal Medicine Cardiovascular Disease | DX: R00.1 Bradycardia, unspecified (principal) | CPT/HCPCS: 93010 ==

== ENCOUNTER 2024-02-08 07:59 | Inpatient (IN) | payer MEDICARE, SELFPAY ==
[2024-02-05 15:42] VITALS: BMI 21.8
--- NOTE | 2024-02-06 | ECG_ITS ---
Test Reason : pre op Blood Pressure : / mmHG Vent. Rate : 049 BPM Atrial Rate : 049 BPM P-R Int : 150 ms QRS Dur : 078 ms QT Int : 432 ms P-R-T Axes : 046 015 041 degrees QTc Int : 390 ms Sinus bradycardia with sinus arrhythmia Otherwise normal ECG No previous ECGs available Referred By: Ariadne Underwood Electronically Signed By:KRISTINA AUGUSTE MD
--- NOTE | 2024-02-06 15:16 | P.CONAN_ITS ---
Documented by User: Ariadne Underwood NP 02/07/24 11:47 HPI - Anesthesia Eval Consult details Narrative: 73yo F for Hand Assist Sigmoid Resection Laparoscopic,colostomy, repair of bladder s/p D&C hyst 12/2023 with GA-LMA 4 PMFSH Active Problems Active Problems: All Active Problems Endocervical polyp (Acute) Endometrial thickening on ultrasound (Acute) Abscess of sigmoid colon (Acute) Thyroid disease (Acute) Hypertension (Acute) Past Medical History Medical History Wears dentures Hypothyroidism Diverticulitis Thyroid disease Hypertension Family History Family History Mother HTN (hypertension) Father Pancreas cancer Family history of problems with anesthesia: No Surgical History Surgical History History of dilatation and curettage (01/19/24) Hx of tonsillectomy History of Problems with Anesthesia: No Social History Social History Household Members: Spouse Housing: House Are you a primary primary care sales representative to a significant other at home: No Do you presently have visiting nurse or other home services: No Alcohol intake: current Alcohol intake frequency: holidays/special occasions only Patient Tobacco Use Status: Current everyday Tobacco user Tobacco use type: Cigarette Cigarettes Per Day: 5 Years Smoked: 50 Smoked in Last 30 Days: Yes Use of substances other than those prescribed or required for medical reasons: No Have you been hit, kicked, punched, or otherwise hurt by someone within the past year? If so, by whom?: No Are you DNR?: No Advance Directives: No Advance Directives Information Provided: Yes Advance Directives on File: No Recently lost weight without trying: Yes How much weight loss: 14-23 pounds Nutrition Risks: Surgical patient >75years service: No Current occupational status: retired Sexual orientation: Straight/Heterosexual Gender identity: Female Meds Allergies Allergy/AdvReac Type Severity Reaction Status Date / Time hydrochlorothiazide AdvReac Intermediate Rash sun Verified 02/08/24 07:29 rash Sulfa (Sulfonamide AdvReac Mild Nausea and Verified 02/08/24 07:29 Antibiotics) Vomiting Home Medications ?Medication ?Instructions ?Recorded ?Confirmed ?Last Taken ?Type ibuprofen 200 mg tablet 200 mg PO Q6H PRN Pain 12/28/23 02/08/24 Unknown History levothyroxine 88 mcg tablet 88 mcg PO DAILY@0600 12/28/23 02/08/24 02/08/24 05:30 History losartan 100 mg tablet 100 mg PO DAILY 12/28/23 02/08/24 02/07/24 08:00 History metoprolol succinate 100 mg 100 mg PO BEDTIME 12/28/23 02/08/24 02/06/24 21:00 History tablet,extended release 24 hr Exam Height,Weight and Vital Signs: Height 5 ft 4 in Weight 57.606 kg Pertinent Lab Results Pertinent Lab Results: Laboratory Tests 12/28/23 15:35 WBC 10.3 Hgb 12.7 Hct 38.2 Plt Count 418 H Sodium 133 L Potassium 4.0 Chloride 100 Carbon Dioxide 26 BUN 10 Creatinine 0.80 Narrative Narrative: EKG 01/2024 Vent. Rate : 049 BPM Atrial Rate : 049 BPM P-R Int : 150 ms QRS Dur : 078 ms QT Int : 432 ms P-R-T Axes : 046 015 041 degrees QTc Int : 390 ms Sinus bradycardia with sinus arrhythmia Otherwise normal ECG No previous ECGs available Assessment and Plan Assessment Anesthesia Assessment: Chart Reviewed Final Anesthetic Review Family History of Problems with Anesthesia: No History of Problems with Anesthesia: No Documented by User: Christal Chin MD 02/08/24 09:28 [facility] Past Medical History Medical History Wears dentures Hypothyroidism Diverticulitis Thyroid disease Hypertension Family History Family History Mother HTN (hypertension) Father Pancreas cancer Surgical History Surgical History History of dilatation and curettage (01/19/24) Hx of tonsillectomy Social History Social History Household Members: Spouse Housing: House Are you a primary primary care sales representative to a significant other at home: No Do you presently have visiting nurse or other home services: No Alcohol intake: current Alcohol intake frequency: holidays/special occasions only Patient Tobacco Use Status: Current everyday Tobacco user Tobacco use type: Cigarette Cigarettes Per Day: 5 Years Smoked: 50 Smoked in Last 30 Days: Yes Use of substances other than those prescribed or required for medical reasons: No Have you been hit, kicked, punched, or otherwise hurt by someone within the past year? If so, by whom?: No Are you DNR?: No Advance Directives: No Advance Directives Information Provided: Yes Advance Directives on File: No Recently lost weight without trying: Yes How much weight loss: 14-23 pounds Nutrition Risks: Surgical patient >75years service: No Current occupational status: retired Sexual orientation: Straight/Heterosexual Gender identity: Female Meds Allergies Allergy/AdvReac Type Severity Reaction Status Date / Time hydrochlorothiazide AdvReac Intermediate Rash sun Verified 02/08/24 07:29 rash Sulfa (Sulfonamide AdvReac Mild Nausea and Verified 02/08/24 07:29 Antibiotics) Vomiting Home Medications ?Medication ?Instructions ?Recorded ?Confirmed ?Last Taken ?Type ibuprofen 200 mg tablet 200 mg PO Q6H PRN Pain 12/28/23 02/08/24 Unknown History levothyroxine 88 mcg tablet 88 mcg PO DAILY@0600 12/28/23 02/08/24 02/08/24 05:30 History losartan 100 mg tablet 100 mg PO DAILY 12/28/23 02/08/24 02/07/24 08:00 History metoprolol succinate 100 mg 100 mg PO BEDTIME 12/28/23 02/08/24 02/06/24 21:00 History tablet,extended release 24 hr Exam Airway Mallampati Class: I TM Dist: >3cm Neck ROM: Limited Denture: Upper and Lower Heart: rrr Lungs: cta Assessment and Plan Assessment Anesthesia Assessment: Anesthesia Plan Discussed Final Anesthetic Review NPO: Yes ASA Class: III Final Preanesthetic Review: No Changes in Pt Med Stat, Meds/Allgs Chart Reviewed, Consent Obtained/Reviewed and Anes Risks/Benef Reviewed Patient Risk: Intermediate Procedure Risk: Intermediate Anesthetic Plan Anesthetic Plan: GA and Regional Block Disposition: Standard PACU
[2024-02-08] VITALS (11 sets, daily range): BP systolic 107–148; BP diastolic 57–82; PULSE 90–123; RESP 16–18; TEMP 36–37.2; O2SAT 98–99; BMI 21.6; BMI 24.1
[2024-02-08] MEDS: Lactated Ringers 1,000 ML 100 ML IVCONT ×2 (08:24→16:50)
--- NOTE | 2024-02-08 08:56 | MHC.SHP ---
Pre-Procedural Eval Section A - 24 Hr Update-Section A only Date of Service: 02/08/24 The patient is an INPATIENT: No Changes since office visit: No Cold of Flu in the past 2 weeks, No New Medical Problems, No Changes in Medication and No Patient answered all questions The patient has been examined within 24 hours of the surgical procedure. The History & Physical has been completed within 30 days and I have reviewed it.: Yes Section B - Complete if H&P > 30 days Chief Complaint: diverticular disease Allergies: Allergies Allergy/AdvReac Type Severity Reaction Status Date / Time hydrochlorothiazide AdvReac Intermediate Rash sun Verified 02/08/24 07:29 rash Sulfa (Sulfonamide AdvReac Mild Nausea and Verified 02/08/24 07:29 Antibiotics) Vomiting Plan I have reviewed the history and physical and performed a pertinent physical examination on my patient. No changes have occurred unless specified. Time Spent With Patient Time: Total time managing care of this patient today ____ minutes.
--- NOTE | 2024-02-08 15:09 | W.PM.OPN ---
Operative Note Operative Note Date of Service: 02/08/24 Narrative: Preop diagnosis: Diverticular disease with colovesical fistula Postop diagnosis: Diverticular disease of the sigmoid, with severe phlegmonous changes, extensive adhesions, colovesical fistula Procedure: Attempted hand assisted laparoscopic resection converted to open sigmoid resection, extensive lysis of adhesions, detachment of sigmoid from the bladder, end-colostomy Surgeon: Shailesh Pacheco MD preschool assistant teacher: AMIRA Ramirez Intraop consult with Urology, Dr. Roblero. The patient is a 73 year female with known diverticular disease, with a CAT scan showing persistent multiple loculated abscess along with a colovesical fistula. She did describe cloudy urine and pain with urination frequently. She understood the technique of the planned procedure as above. She was aware of the risks, benefits, and alternatives She was brought to the operating room placed in modified lithotomy position under general anesthesia via endotracheal tube. The abdomen and the perineum were prepped and draped in the usual sterile fashion. A surgical time-out was done. The patient received Cefotan 2 g IV preoperatively. A Chavez catheter had been inserted. Again, the urine was noted to be very cloudy I made a short low midline incision on the skin using blade 15. This was carried down through the full-thickness of the skin subcutaneous fat with electrocautery. Fascia was incised. The peritoneum was entered. Through this incision a Sourav wound retractor was placed. The GelPort was attached to the wound retractor along with an insufflating port. The peritoneum was insufflated to a pressure of 15 mm Hg. A 30 degree 10 mm scope was used with the GelPort. With laparoscopic visualization a 5/12 mm port inserted through the epigastric area via a small stab incision. The laparoscope was moved to this epigastric port. There was note of adhesions and left side of the abdomen. I inserted my hand into the GelPort. The patient was placed in a head down position. The bowel loops were retract the weight of the pelvis. The sigmoid was seen and this was very indurated, thickened and markedly adherent to the pelvic sidewall. This was also noted to be attached with the anterior pelvis where the dome of the bladder was I inserted another 5 mm port in the right lower quadrant through a small stab incision. I proceeded to then lyse adhesions in the left upper quadrant of the abdomen using the LigaSure. There was some extensive adhesions in this area. Eventually was able to release all of these I was able to visualize the proximal to mid sigmoid which was very densely adherent to the pelvic sidewall and the bladder. We careful finger fracture technique, as able to separate this from the bladder. I attempted to gently dissect this with the LigaSure off of the sidewall but the planes were very poorly defined. I therefore proceeded to then divide the ligamentous attachments along the white line of Toldt on the left colon using the LigaSure. I gently dissected this all the way to the hepatic flexure. I was therefore able to mobilize a lot of the left colon. However, the sigmoid remained attached to the pelvic sidewall all the way distally. We attempted to do lysis of adhesions and dissection of the very indurated, thickened proximal sigmoid off the pelvic sidewall laparoscopically. However, the planes were very poorly defined along with indurated tissue surrounding the entire area I therefore decided to proceed with open dissection. I desufflated and removed the GelPort and the Sourav wound retractor. I lengthened the skin incision as well as the fascial incision. The Bookwalter retractors were positioned. We then proceeded to carefully dissect the sigmoid from the pelvic sidewall. We were using combination of blunt dissection, finger fracture technique, as well as the use of the right angle clamp with the LigaSure. This part of procedure took an extended period of time As we proceeded with the dissection, it was noted that the mid and distal sigmoid was loop upon itself and was densely adherent as well in between the loops. Furthermore, part of the mid sigmoid was densely adherent to the anterior rectum and the planes were extremely indurated and not define We had to carefully separate the sigmoid from the pelvic sidewall by doing the planes of dissection from the left colon done earlier. We had to proceed slowly and gently because of the severe induration of the adhesions as well as seen inflammatory fibrotic changes Eventually because of the poor planes I decided to transect the proximal sigmoid 1st and if we can dissection through the mesentery posteriorly. I used the powered Endo-MINI stapler to divide a healthy looking segment of the proximal sigmoid after creation of a mesenteric window. This was divided. I then proceeded to divide the very indurated mesentery going distally from this. This part of the procedure again took an extended period time. We encountered extremely poor planes in the mid sigmoid. I therefore had to alternate with dissection of the sigmoid from distal and proximal to allow straightening of the loops of the sigmoid colon. This part of this procedure again took an extended period time There was note of a very thick rind surrounding the mid sigmoid and the distal sigmoid which we had to carefully dissect with electrocautery as well as with the LigaSure We had a significant difficulty with the planes and I decided to attempt to see if we could dissection from distal at the rectosigmoid and achieve better planes. Soft, healthy looking rectosigmoid segment. I created a mesenteric window and this was divided with powered Endo-MINI stapler I then proceeded to alternate dividing the mesentery from distal and proximal. Again the planes surrounding the mid sigmoid was extremely poor and we had difficulty with dissection. We did encounter some bleeding from the mesentery as well with dissection using the LigaSure. In view of the presence of very poor planes, I entered the lumen of the sigmoid in some places I had to also do an extensive adhesions on a loop of small bowel that was stuck to this area. I had to do used the Metzenbaum scissors to separate 1 loop of the small bowel which was intimately adherent to this segment. We were able to achieve this and examination of this segment showed no bowel injury Again with prolonged dissection using the LigaSure, symptoms scissors, and blunt dissection I was able to eventually separate the sigmoid colon from the mesentery, the pelvic sidewall and both lateral and medial sides. This was sent as a specimen I then proceeded to our end-colostomy from the proximal sigmoid. We had adequate length to reach to the abdominal wall. I excised the discoid piece of skin from the left lower quadrant. I dissected through the subcutaneous fat and the anterior sheath. I did muscle-splitting of the rectus to create our stoma opening. We pulled up the proximal sigmoid at the staple line using a Sloane. We matured the colostomy by excising the staple line and applying a circumferential row of full-thickness Polysorb 3-0 sutures so the wall of the colon to the subdermal layer of the skin The stoma appeared viable without any signs of ischemia. At this point, we did an intraop consult with Dr. Roblero of Urology. We injected the bladder with normal saline and there was no evidence of significant spilling or extravasation the previous site of the vesical fistula.. The urine appeared clear at the end of the procedure as well We then re-examined for hemostasis. Once hemostasis appeared to be well controlled at the divided mesentery in the pelvis, I proceeded to position the RAY 10 drain pelvis. We copiously irrigated. We observed for hemostasis. Once hemostasis was confirmed, I also read the small bowel from proximal to distal and there was no note of any significant bowel injury. The fascia was then closed with a running Maxon 1 stitch. Skin closure was achieved with skin soy. He RAY drain was secured to the skin with nylon 3-0 sutures We then proceeded to examine the peritoneal cavity laparoscopically with the remaining epigastric port. There was no twisting on the stoma. There was no obvious bleeding or any bowel injury. There was no bowel caught in the fascial sutures. Dressings were applied. The stoma appliance was placed and the procedure was completed The patient tolerated procedure well. There were no immediate complications. Initial and final counts of sponges and instruments were correct. Estimated blood loss was about 250 cc The patient was extubated without difficulty and transferred to the recovery room with stable vital signs.
--- NOTE | 2024-02-08 16:26 | PM.EVENT ---
Event Note Date of Service: 02/09/24 Event Note: Seen postop Status post sigmoid resection with end-colostomy, extensive lysis of adhesions Seems to have adequate pain control RAY drain lowoutput, dark blood Urine nonbloody, 60 cc the last Pain management Incentive spirometry Stoma care Family updated Time Spent With Patient Time: Total time managing care of this patient today ____ minutes.
[2024-02-08] MEDS: Acetaminophen 1,000 MG/100 ML PIGGYBACK 400 MG IV ×2 (16:57→22:45)
--- NOTE | 2024-02-08 17:06 | PHA.MEDREC ---
Pharmacy Consult ? Medication Reconciliation Pharmacy has completed the medication reconciliation. Spoke to patient to confirm med list. Patient states she is finished taking Amoxcillin- Pot Clavulante 875 mg/ 125 mg bid.
--- NOTE | 2024-02-08 18:17 | PC.NURSE ---
Ostomy stoma red and beefy, no output yet.
[2024-02-08] MEDS: oxyCODONE HCl Immed Release 5 MG TABLET PO ×2 (19:23→22:45)
[2024-02-08] MEDS: Metoprolol Succinate ER 100 MG TAB.ER.24H PO (19:23)
[2024-02-09] MEDS: oxyCODONE HCl Immed Release 5 MG TABLET PO ×3 (03:55→14:47)
[2024-02-09 04:00] VITALS: BP 114/59; PULSE 68; RESP 18; TEMP 36.6; O2SAT 97
[2024-02-09] MEDS: Acetaminophen 1,000 MG/100 ML PIGGYBACK 400 MG IV ×2 (04:22→16:08)
[2024-02-09] MEDS: Lactated Ringers 1,000 ML 100 ML IVCONT ×2 (05:06→14:44)
[2024-02-09] MEDS: Levothyroxine Sodium 88 MCG TABLET PO (06:33)
[2024-02-09 06:51] LABS: MANUAL DIFF FLAG NO
[2024-02-09 07:00] LABS: Basophils Percent Auto 0.2 % (0-2); Eosinophils Percent Auto 0.1 % (0-4); Hematocrit 31.8 % (37.0-47.0); Hemoglobin 10.4 g/dl (12.0-16.0); Imm Gran Pct Auto 0.6 % (0.0-0.4); Lymphocytes Absolute Auto 1.3 X10*3/uL (1.2-4.9); Lymphocytes Percent Auto 7.6 % (20-40); Mean Corpuscular HGB Conc 32.7 g/dl (31.0-35.0); Mean Corpuscular Hemoglobin 27.8 pg (27.0-33.0); Mean Platelet Volume 10.6 fL (9.4-12.3); Monocytes Percent Auto 5.7 % (2-11); Neutrophils Absolute Auto 14.7 x10*3/uL (2.0-8.3); Neutrophils Percent Auto 85.8 % (45-73); Platelet Count 403 X10*3/uL (160-400); Red Blood Count 3.74 X10*6/uL (4.20-5.50); Red Cell Distribution Width 14.8 % (11.0-16.0); White Blood Count 17.2 X10*3/uL (4.8-10.8)
[2024-02-09 07:31] VITALS: BP 127/56; PULSE 63; RESP 18; TEMP 36.2; O2SAT 97
[2024-02-09] MEDS: Losartan Potassium 50 MG TABLET 100 MG PO (08:02)
--- NOTE | 2024-02-09 08:04 | PM.PNGS ---
Subjective Subjective Date of Service: 02/09/24 <Iliana Ramirez PA-C - Last Filed: 02/09/24 08:52> 02/09/24 <Shailesh Pacheco MD - Last Filed: 02/09/24 09:54> Interval history: Feels very sore this morning. Tolerating clear liquids. No flatus or output via ostomy. Has not been OOB. Using incentive spirometer infrequently. <Iliana Ramirez PA-C - Last Filed: 02/09/24 08:52> Physical Exam Vital Signs: Vital Signs: Last Vital Signs Temp 97.1 F 02/09/24 07:31 Pulse 63 02/09/24 07:31 Resp 18 02/09/24 07:31 BP 127/56 L 02/09/24 07:31 Pulse Ox 97 02/09/24 07:31 O2 Del Method Room Air 02/09/24 07:31 O2 Flow Rate 2 02/08/24 16:38 BMI result Body Mass Index 24.1 <Iliana Ramirez PA-C - Last Filed: 02/09/24 08:52> Const: General: comfortable, no acute distress and alert <Iliana Ramirez PA-C - Last Filed: 02/09/24 08:52> Orientation/consciousness: patient oriented x3 <LISA Townsend Last Filed: 02/09/24 08:52> Resp: Effort & Inspection: normal respiratory effort <Iliana Ramirez PA-C - Last Filed: 02/09/24 08:52> GI: Other: ostomy viable appearing, no output RAY output serosanguineous <Iliana Ramirez PA-C - Last Filed: 02/09/24 08:52> Inspection: No distended and Yes incision (dressing clean and intact) <LISA Townsend Last Filed: 02/09/24 08:52> Palpation (GI): Soft to palpation, Tenderness to palpation present (GI) and no guarding <LISA Townsend Last Filed: 02/09/24 08:52> : Other: alexis in place, straw colored no stool <LISA Townsend Last Filed: 02/09/24 08:52> Skin: General skin exam: no rashes or lesions noted <Iliana Ramirez PA-C - Last Filed: 02/09/24 08:52> Neuro: General: patient oriented x3 and moves all extremities <Iliana Ramirez PA-C - Last Filed: 02/09/24 08:52> Objective Data Active Medications Calcium Carbonate (Calcium Carbonate 750 Mg Tab.Chew) 750 mg PO Q4H PRN PRN Reason: Heartburn Lactated Ringer's (Lr) 1,000 mls @ 100 mls/hr IVCONT .Q10H [facility] Last Admin: 02/09/24 05:06 Dose: 100 mls/hr Documented By: JEN Comments: Unable to scan medication computers down- code C Acetaminophen (Ofirmev) 1,000 mg in 100 mls @ 400 mls/hr IV Q6H [facility] Last Infusion: 02/09/24 05:12 Dose: Infused Documented By: JEN Levothyroxine Sodium (Levothyroxine Sodium 88 Mcg Tablet) 88 mcg PO DAILY@0600 [facility] Last Admin: 02/09/24 06:33 Dose: 88 mcg Documented By: JEN Losartan Potassium (Losartan Potassium 50 Mg Tablet) 100 mg PO DAILY [facility]; Protocol Last Admin: 02/09/24 08:02 Dose: 100 mg Documented By: NISA Magnesium Hydroxide (Milk Of Magnesia 30 Ml Oral.Susp) 30 ml PO DAILY PRN PRN Reason: Constipation Melatonin (Melatonin 3 Mg Tablet) 6 mg PO BEDTIME PRN PRN Reason: Insomnia Metoprolol Succinate (Metoprolol Succinate Er 100 Mg Tab.Er.24h) 100 mg PO BEDTIME [facility]; Protocol Last Admin: 02/08/24 19:23 Dose: 100 mg Documented By: MISSY Morphine Sulfate (Morphine Sulfate 4 Mg/Ml Cartridge) 4 mg IVPUSH Q4H PRN; Protocol PRN Reason: Pain, Severe (Pain Scale 7-10) Ondansetron HCl (Ondansetron Hcl 4 Mg/2 Ml Vial) 4 mg IVPUSH Q6H PRN PRN Reason: Nausea and Vomiting Oxycodone HCl (Oxycodone Hcl Immed Release 5 Mg Tablet) 5 mg PO Q4H PRN PRN Reason: Pain, Moderate(Pain Scale 4-6) Last Admin: 02/09/24 08:02 Dose: 5 mg Documented By: NISA Sodium Chloride (0.9 % Sodium Chloride Flush 3 Ml Syringe) 3 ml IVFLUSH QSHIFT [facility] Last Admin: 02/09/24 06:56 Dose: Not Given Documented By: NISA Non-Admin Reason: IV Running <Iliana Ramirez PA-C - Last Filed: 02/09/24 08:52> Labs CBC & Chem 7: 02/09/24 05:34 02/09/24 05:34 <LISA Townsend Last Filed: 02/09/24 08:52> Labs: Laboratory Results - last 24 hr 02/09/24 05:34 MCV 85.0 MCH 27.8 MCHC 32.7 RDW 14.8 Plt Count 403 H MPV 10.6 Immature Gran % (Auto) 0.6 H Neut % (Auto) 85.8 H Lymph % (Auto) 7.6 L [place] % (Auto) 5.7 Eos % (Auto) 0.1 Baso % (Auto) 0.2 Lymph # (Auto) 1.3 [place] # (Auto) 1.0 Eos # (Auto) 0.0 Baso # (Auto) 0.0 Abs Immat Gran (auto) 0.10 H Absolute Neuts (auto) 14.7 H Absolute Nucleated RBC 0.000 Nucleated RBC % (auto) 0.0 <Iliana Ramirez PA-C - Last Filed: 02/09/24 08:52> Procedures Date of Service Date of Service: 02/09/24 <Iliana Ramirez PA-C - Last Filed: 02/09/24 08:52> 02/09/24 <Shailesh Pacheco MD - Last Filed: 02/09/24 09:54> Progress Note: A&P Assessment and plan (1) Colovesical fistula: Status: Acute <Iliana Ramirez PA-C - Last Filed: 02/09/24 08:52> Assessment and Plan: Seems to have adequate pain control No stoma output yet Stoma appears viable Urine clear - Alexis in place Abdomen is soft She looks well overall We will keep on clear liquids until return of good GI functions Out of bed Incentive spirometry Keep Alexis in place Seen and examined independently <Shailesh Pacheco MD - Last Filed: 02/09/24 09:54> Assessment and Plan: POD #1 s/p Attempted hand assisted laparoscopic resection converted to open sigmoid resection, extensive lysis of adhesions, detachment of sigmoid from the bladder, 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 Doing fairly well today post op. Hemodynamically stable. ABd benign with clean/intact dressing, ostomy viable appearing without output, RAY serosanguineous drainage. Cont clear liquids for today. Encouraged OOB/ambulation today, IS use. Pain control. Await GI function. Keep RAY in place. AM labs reviewed, leukocytosis likely reactive. Colostomy education. Keep alexis in place. <Iliana Ramirez PA-C - Last Filed: 02/09/24 08:52> Time Spent With Patient Time: Total time managing care of this patient today ____ minutes. <Iliana Ramirez PA-C - Last Filed: 02/09/24 08:52> Quality Stroke Does the patient have a stroke diagnosis?: No <Iliana Ramirez PA-C - Last Filed: 02/09/24 08:52> VTE Prior VTE?: No <Iliana Ramirez PA-C - Last Filed: 02/09/24 08:52> VTE Risk Level:: Medical - moderate - high <Iliana Ramirez PA-C - Last Filed: 02/09/24 08:52> VTE Device Contraindication: N/A - Device Ordered <Iliana Ramirez PA-C - Last Filed: 02/09/24 08:52> VTE Drug Contraindication: N/A - Med Ordered <LISA Townsend Last Filed: 02/09/24 08:52>
[2024-02-09 08:05] LABS: Anion Gap 14 (12-20); Blood Urea Nitrogen 8 mg/dL (9-16); Calcium 8.2 mg/dL (8.4-10.2); Carbon Dioxide 23 mmol/L (22-29); Chloride 102 mmol/L (96-108); Creatinine Clr Calc Pharmacy 53.1; Estimated Glomerular Filt Rate > 60; Glucose Fasting 120 mg/dL (60-99)
[2024-02-09 08:06] LABS: Potassium 4.3 mmol/L (3.3-5.1); Sodium 135 mmol/L (135-145)
[2024-02-09] MEDS: Heparin Sodium,Porcine 5,000 UNIT/ML VIAL 5000 UNIT SUBCUT ×2 (08:23→19:35)
[2024-02-09 08:48] VITALS: BP 127/56; PULSE 63; O2SAT 97
--- NOTE | 2024-02-09 09:18 | MHC.CM.PN ---
PT REPORTS SHE LIVES WITH HER AND IS INDEPENDENT WITH CARE SHE HAS NO DME AND NO SERVICES SHE DECLINES TO COMPLETE A HCP PCP: JOSE LUIS AUGUSTE AT [facility] IMM DELIVERED DCP: HOME NO SERVICES VIA PRIVATE TRANSPORT
--- NOTE | 2024-02-09 10:36 | HO.POSTANES ---
Post Anesthesia Evaluation Post Anesthesia Evaluation Date of Service: 02/09/24 Vital Signs: Vital Signs Temp Pulse Resp BP Pulse Ox O2 Del Method 02/09/24 08:48 63 127/56 L 97 02/09/24 07:31 97.1 F 63 18 127/56 L 97 Room Air 02/09/24 04:00 97.8 F 68 18 114/59 L 97 Room Air Anesthesia: General Mental Status: Awake Pain Control: Satisfactory Nausea/Vomiting: None Hydration: Adequate Anesthesia-Related Issues: No Anes. Related Issues
--- NOTE | 2024-02-09 13:24 | PM.EVENT ---
Event Note Date of Service: 02/09/24 Event Note: seen on afternoon rounds good pain control good UO - clear abd soft RAY drain scanty serosanguinous output no stoma output yet stoma viable looking keep on clears ob recliner now incentive spirometry Time Spent With Patient Time: Total time managing care of this patient today ____ minutes.
[2024-02-09] MEDS: Simethicone 80 MG TAB.CHEW PO (13:37)
[2024-02-09 15:12] VITALS: BP 112/57; PULSE 77; RESP 18; TEMP 37.6; O2SAT 97
[2024-02-09] MEDS: Omeprazole 20 MG CAPSULE.DR PO (16:09)
[2024-02-09 20:00] VITALS: BP 117/58; PULSE 68; RESP 16; TEMP 36.7; O2SAT 97
[2024-02-09 21:39] VITALS: BP 120/57; PULSE 69
[2024-02-09] MEDS: Metoprolol Succinate ER 100 MG TAB.ER.24H PO (21:39)
[2024-02-10] MEDS: Lactated Ringers 1,000 ML 100 ML IVCONT (00:55)
[2024-02-10 02:34] VITALS: BP 161/74; PULSE 74; RESP 16; TEMP 36.6; O2SAT 97
[2024-02-10] MEDS: oxyCODONE HCl Immed Release 5 MG TABLET PO (02:54)
[2024-02-10] MEDS: Omeprazole 20 MG CAPSULE.DR PO ×2 (06:06→16:20)
[2024-02-10] MEDS: Levothyroxine Sodium 88 MCG TABLET PO (06:06)
[2024-02-10] MEDS: Acetaminophen 1,000 MG/100 ML PIGGYBACK 400 MG IV ×4 (06:07→23:02)
[2024-02-10] MEDS: ondansetron HCL 4 MG/2 ML VIAL IVPUSH (06:15)
[2024-02-10 06:30] LABS: Basophils Percent Auto 0.2 % (0-2); Eosinophils Percent Auto 0.1 % (0-4); Hematocrit 30.2 % (37.0-47.0); Hemoglobin 9.9 g/dl (12.0-16.0); Imm Gran Abs Auto 0.17 X10*3/uL (0.00-0.03); Imm Gran Pct Auto 0.7 % (0.0-0.4); Lymphocytes Absolute Auto 0.8 X10*3/uL (1.2-4.9); Lymphocytes Percent Auto 3.5 % (20-40); MANUAL DIFF FLAG SCAN; Mean Corpuscular HGB Conc 32.8 g/dl (31.0-35.0); Mean Corpuscular Hemoglobin 27.7 pg (27.0-33.0); Mean Corpuscular Volume 84.4 fL (80.0-98.0); Mean Platelet Volume 10.7 fL (9.4-12.3); Monocytes Absolute Auto 1.1 X10*3/uL (0.1-1.2); Monocytes Percent Auto 4.7 % (2-11); Neutrophils Absolute Auto 20.7 x10*3/uL (2.0-8.3); Neutrophils Percent Auto 90.8 % (45-73); Platelet Count 389 X10*3/uL (160-400); Red Blood Count 3.58 X10*6/uL (4.20-5.50); Red Cell Distribution Width 14.9 % (11.0-16.0); SCAN SMEAR FLAG 1; White Blood Count 22.8 X10*3/uL (4.8-10.8)
[2024-02-10 06:57] LABS: SLIDE REVIEW VERIFIED
[2024-02-10 07:48] VITALS: BP 130/64; PULSE 65; RESP 18; TEMP 36.3; O2SAT 96
[2024-02-10] MEDS: Losartan Potassium 50 MG TABLET 100 MG PO (08:01)
[2024-02-10] MEDS: Heparin Sodium,Porcine 5,000 UNIT/ML VIAL 5000 UNIT SUBCUT ×2 (08:01→19:18)
--- NOTE | 2024-02-10 08:05 | P.PNGS_ITS ---
Subjective Subjective Date of Service: 02/10/24 Interval history: Overall patient feels improved with only minimal abdominal discomfort. No stool or flatus in ostomy. Tolerating clear liquids. Would like to try soft food such as scrambled eggs. Physical Exam 2 Vital Signs: Vital Signs: Last Vital Signs Temp 97.3 F 02/10/24 07:48 Pulse 65 02/10/24 07:48 Resp 18 02/10/24 07:48 BP 130/64 02/10/24 07:48 Pulse Ox 96 02/10/24 07:48 O2 Del Method Room Air 02/10/24 07:48 O2 Flow Rate 2 02/08/24 16:38 BMI result Body Mass Index 24.1 Const: General: no acute distress Nutritional Appearance: well nourished Orientation/consciousness: patient oriented x3 Resp: Effort & Inspection: normal respiratory effort, no audible wheezes, no cough and no respiratory distress GI: Other: Ostomy retracted but pink and viable. Inspection: Yes incision (Clean dry and intact) Palpation (GI): Soft to palpation, Tenderness to palpation present (GI) (Incisional), no guarding and not rigid Skin: Other: Warm, dry, no rash Neuro: General: patient oriented x3 Extrem: Other: No edema Objective Data Active Medications Calcium Carbonate (Calcium Carbonate 750 Mg Tab.Chew) 750 mg PO Q4H PRN PRN Reason: Heartburn Heparin Sodium (Porcine) (Heparin Sodium,Porcine 5,000 Unit/Ml Vial) 5,000 unit SUBCUT Q12H [facility] Last Admin: 02/09/24 19:35 Dose: 5,000 unit Documented By: IMELDA Acetaminophen (irmev) 1,000 mg in 100 mls @ 400 mls/hr IV Q6H [facility] Last Infusion: 02/10/24 06:23 Dose: Infused Documented By: IMELDA Piperacillin Sod/Tazobactam (Sod 3.375 gm/ Sodium Chloride) 50 mls @ 100 mls/hr IV Q6H [facility] Levothyroxine Sodium (Levothyroxine Sodium 88 Mcg Tablet) 88 mcg PO DAILY@0600 [facility] Last Admin: 02/10/24 06:06 Dose: 88 mcg Documented By: IMELDA Losartan Potassium (Losartan Potassium 50 Mg Tablet) 100 mg PO DAILY [facility]; Protocol Last Admin: 02/09/24 08:02 Dose: 100 mg Documented By: NISA Melatonin (Melatonin 3 Mg Tablet) 6 mg PO BEDTIME PRN PRN Reason: Insomnia Metoprolol Succinate (Metoprolol Succinate Er 100 Mg Tab.Er.24h) 100 mg PO BEDTIME [facility]; Protocol Last Admin: 02/09/24 21:39 Dose: 100 mg Documented By: IMELDA Morphine Sulfate (Morphine Sulfate 4 Mg/Ml Cartridge) 4 mg IVPUSH Q4H PRN; Protocol PRN Reason: Pain, Severe (Pain Scale 7-10) Omeprazole (Omeprazole 20 Mg Capsule.Dr) 20 mg PO BID@0630,1630 [facility] Last Admin: 02/10/24 06:06 Dose: 20 mg Documented By: IMELDA Ondansetron HCl (Ondansetron Hcl 4 Mg/2 Ml Vial) 4 mg IVPUSH Q6H PRN PRN Reason: Nausea and Vomiting Last Admin: 02/10/24 06:15 Dose: 4 mg Documented By: IMELDA Oxycodone HCl (Oxycodone Hcl Immed Release 5 Mg Tablet) 5 mg PO Q4H PRN PRN Reason: Pain, Moderate(Pain Scale 4-6) Last Admin: 02/10/24 02:54 Dose: 5 mg Documented By: IMELDA Simethicone (Simethicone 80 Mg Tab.Chew) 80 mg PO QID PRN PRN Reason: Gas Last Admin: 02/09/24 13:37 Dose: 80 mg Documented By: NISA Sodium Chloride (0.9 % Sodium Chloride Flush 3 Ml Syringe) 3 ml IVFLUSH QSHIFT [facility] Last Admin: 02/10/24 07:26 Dose: Not Given Documented By: NISA Non-Admin Reason: IV Running Labs 02/10/24 05:36 02/09/24 05:34 Labs: Laboratory Results - last 24 hr 02/09/24 02/10/24 05:34 05:36 MCV 84.4 MCH 27.7 MCHC 32.8 RDW 14.9 Plt Count 389 MPV 10.7 Immature Gran % (Auto) 0.7 H Neut % (Auto) 90.8 H Lymph % (Auto) 3.5 L [place] % (Auto) 4.7 Eos % (Auto) 0.1 Baso % (Auto) 0.2 Lymph # (Auto) 0.8 L [place] # (Auto) 1.1 Eos # (Auto) 0.0 Baso # (Auto) 0.0 Abs Immat Gran (auto) 0.17 H Absolute Neuts (auto) 20.7 H Absolute Nucleated RBC 0.000 Nucleated RBC % (auto) 0.0 Smear Tech's Comments VERIFIED Anion Gap 14 Estim Creat Clear Calc 53.1 Estimated GFR > 60 Fasting Glucose 120 H Calcium 8.2 L D Procedures Date of Service Date of Service: 02/10/24 Progress Note: A&P Assessment and plan (1) Colovesical fistula: Status: Acute Assessment and Plan: S Plan POD #2 s/p Attempted hand assisted laparoscopic resection converted to open sigmoid resection, extensive lysis of adhesions, detachment of sigmoid from the bladder, 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 Overall patient is improved and abdomen is benign. Ostomy is pink but no stool output yet. Patient is tolerating clear liquids and will advance to a soft diet. WBC has increased to 22. Will add Zosyn. Recheck CBC in a.m.. Time Spent With Patient Time: Total time managing care of this patient today ____ minutes. Quality Stroke Does the patient have a stroke diagnosis?: No VTE Prior VTE?: No VTE Risk Level:: Medical - moderate - high VTE Device Contraindication: N/A - Device Ordered VTE Drug Contraindication: N/A - Med Ordered
[2024-02-10] MEDS: Piperacillin Sodium/Tazobactam 3.375 GM in 0.9 % Sodium Chloride 50 ML IV ×3 (08:08→19:17)
--- NOTE | 2024-02-10 14:59 | PC.NURSE ---
Pt refusing to get oob this day shift.
[2024-02-10 16:00] VITALS: BP 122/63; PULSE 56; RESP 18; TEMP 36.5; O2SAT 97
--- NOTE | 2024-02-10 16:50 | PC.NURSE ---
Pt doing well, ambulated approx [address] with 1 assist.
[2024-02-10 19:25] VITALS: BP 140/64; PULSE 61; RESP 16; TEMP 37.1; O2SAT 96
[2024-02-10 19:31] VITALS: BP 140/64; PULSE 61
[2024-02-10] MEDS: Metoprolol Succinate ER 100 MG TAB.ER.24H PO (19:31)
[2024-02-11] MEDS: 0.9 % Sodium Chloride Flush 3 ML SYRINGE IVFLUSH ×4 (02:20→21:27)
[2024-02-11] MEDS: Piperacillin Sodium/Tazobactam 3.375 GM in 0.9 % Sodium Chloride 50 ML IV ×4 (02:20→21:26)
[2024-02-11 04:00] VITALS: BP 156/72; PULSE 58; RESP 16; TEMP 36.5; O2SAT 97
[2024-02-11] MEDS: Omeprazole 20 MG CAPSULE.DR PO ×2 (05:44→16:16)
[2024-02-11] MEDS: Levothyroxine Sodium 88 MCG TABLET PO (05:44)
[2024-02-11 06:07] LABS: MANUAL DIFF FLAG NO
[2024-02-11 06:29] LABS: Basophils Percent Auto 0.2 % (0-2); Eosinophils Absolute Auto 0.2 X10*3/uL (0.0-0.4); Eosinophils Percent Auto 1.5 % (0-4); Hematocrit 27.2 % (37.0-47.0); Hemoglobin 8.7 g/dl (12.0-16.0); Imm Gran Abs Auto 0.15 X10*3/uL (0.00-0.03); Lymphocytes Absolute Auto 1.2 X10*3/uL (1.2-4.9); Lymphocytes Percent Auto 7.6 % (20-40); Mean Corpuscular Hemoglobin 27.6 pg (27.0-33.0); Mean Corpuscular Volume 86.3 fL (80.0-98.0); Mean Platelet Volume 10.9 fL (9.4-12.3); Monocytes Absolute Auto 0.7 X10*3/uL (0.1-1.2); Monocytes Percent Auto 4.6 % (2-11); Neutrophils Absolute Auto 13.2 x10*3/uL (2.0-8.3); Neutrophils Percent Auto 85.1 % (45-73); Platelet Count 383 X10*3/uL (160-400); Red Blood Count 3.15 X10*6/uL (4.20-5.50); White Blood Count 15.5 X10*3/uL (4.8-10.8)
[2024-02-11 07:39] VITALS: BP 147/68; PULSE 62; RESP 18; TEMP 37.1; O2SAT 97
[2024-02-11] MEDS: Losartan Potassium 50 MG TABLET 100 MG PO (07:59)
[2024-02-11] MEDS: Heparin Sodium,Porcine 5,000 UNIT/ML VIAL 5000 UNIT SUBCUT ×2 (07:59→21:25)
--- NOTE | 2024-02-11 09:05 | PC.NURSE ---
Pt doing well, making low fall risk, ambulating in the hallway with . States she will ask staff for help with ADLs.
--- NOTE | 2024-02-11 10:04 | P.PNGS_ITS ---
Subjective Subjective Date of Service: 02/11/24 Interval history: Overall patient feels improved this morning. She denies any stool per the ostomy but has had some gas pass. Physical Exam 2 Vital Signs: Vital Signs: Last Vital Signs Temp 98.7 F 02/11/24 07:39 Pulse 62 02/11/24 07:39 Resp 18 02/11/24 07:39 BP 147/68 H 02/11/24 07:39 Pulse Ox 97 02/11/24 07:39 O2 Del Method Room Air 02/11/24 07:39 O2 Flow Rate 2 02/08/24 16:38 BMI result Body Mass Index 24.1 Const: General: no acute distress Nutritional Appearance: well nourished Orientation/consciousness: patient oriented x3 Resp: Effort & Inspection: normal respiratory effort, no audible wheezes, no cough and no respiratory distress GI: Other: Ostomy retracted but pink and viable. Small amount of flatus within the bag. Inspection: Yes incision (Clean dry and intact) Palpation (GI): Soft to palpation, Tenderness to palpation present (GI) (Incisional), no guarding and not rigid Skin: Other: Warm, dry, no rash Neuro: General: patient oriented x3 Extrem: Other: No edema Objective Data Active Medications Calcium Carbonate (Calcium Carbonate 750 Mg Tab.Chew) 750 mg PO Q4H PRN PRN Reason: Heartburn Heparin Sodium (Porcine) (Heparin Sodium,Porcine 5,000 Unit/Ml Vial) 5,000 unit SUBCUT Q12H [facility] 234 BEDS AT [facility] Last Admin: 02/11/24 07:59 Dose: 5,000 unit Documented By: NISA Acetaminophen (Ofirmev) 1,000 mg in 100 mls @ 400 mls/hr IV Q6H [facility] 234 BEDS AT [facility] Last Admin: 02/11/24 05:52 Dose: Not Given Documented By: IMELDA Non-Admin Reason: exceeds dose Piperacillin Sod/Tazobactam (Sod 3.375 gm/ Sodium Chloride) 50 mls @ 100 mls/hr IV Q6H [facility]CLUDE 234 BEDS AT [facility] Last Infusion: 02/11/24 08:33 Dose: Infused Documented By: NISA Levothyroxine Sodium (Levothyroxine Sodium 88 Mcg Tablet) 88 mcg PO DAILY@0600 [facility]CLUDE 234 BEDS AT [facility] Last Admin: 02/11/24 05:44 Dose: 88 mcg Documented By: IMELDA Losartan Potassium (Losartan Potassium 50 Mg Tablet) 100 mg PO DAILY [facility]S [facility]CLUDE 234 BEDS AT [facility]; Protocol Last Admin: 02/11/24 07:59 Dose: 100 mg Documented By: NISA Melatonin (Melatonin 3 Mg Tablet) 6 mg PO BEDTIME PRN PRN Reason: Insomnia Metoprolol Succinate (Metoprolol Succinate Er 100 Mg Tab.Er.24h) 100 mg PO BEDTIME [facility]S [facility]CLUDE 234 BEDS AT [facility]; Protocol Last Admin: 02/10/24 19:31 Dose: 100 mg Documented By: IMELDA Morphine Sulfate (Morphine Sulfate 4 Mg/Ml Cartridge) 4 mg IVPUSH Q4H PRN; Protocol PRN Reason: Pain, Severe (Pain Scale 7-10) Omeprazole (Omeprazole 20 Mg Capsule.Dr) 20 mg PO BID@0630,1630 [facility]CLUDE 234 BEDS AT [facility] Last Admin: 02/11/24 05:44 Dose: 20 mg Documented By: IMELDA Ondansetron HCl (Ondansetron Hcl 4 Mg/2 Ml Vial) 4 mg IVPUSH Q6H PRN PRN Reason: Nausea and Vomiting Last Admin: 02/10/24 06:15 Dose: 4 mg Documented By: IMELDA Oxycodone HCl (Oxycodone Hcl Immed Release 5 Mg Tablet) 5 mg PO Q4H PRN PRN Reason: Pain, Moderate(Pain Scale 4-6) Last Admin: 02/10/24 02:54 Dose: 5 mg Documented By: IMELDA Simethicone (Simethicone 80 Mg Tab.Chew) 80 mg PO QID PRN PRN Reason: Gas Last Admin: 02/09/24 13:37 Dose: 80 mg Documented By: NISA Sodium Chloride (0.9 % Sodium Chloride Flush 3 Ml Syringe) 3 ml IVFLUSH QSHIFT COUNTS INCLUDE 234 BEDS AT [facility] Last Admin: 02/11/24 07:58 Dose: 3 ml Documented By: NISA Labs 02/11/24 05:10 02/09/24 05:34 Labs: Laboratory Results - last 24 hr 02/11/24 05:10 MCV 86.3 MCH 27.6 MCHC 32.0 RDW 15.0 Plt Count 383 MPV 10.9 Immature Gran % (Auto) 1.0 H Neut % (Auto) 85.1 H Lymph % (Auto) 7.6 L [place] % (Auto) 4.6 Eos % (Auto) 1.5 Baso % (Auto) 0.2 Lymph # (Auto) 1.2 [place] # (Auto) 0.7 Eos # (Auto) 0.2 Baso # (Auto) 0.0 Abs Immat Gran (auto) 0.15 H Absolute Neuts (auto) 13.2 H Absolute Nucleated RBC 0.000 Nucleated RBC % (auto) 0.0 Procedures Date of Service Date of Service: 02/11/24 Progress Note: A&P Assessment and plan (1) Colovesical fistula: Status: Acute Assessment and Plan: S Plan POD #3 s/p Attempted hand assisted laparoscopic resection converted to open sigmoid resection, extensive lysis of adhesions, detachment of sigmoid from the bladder, 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 Overall patient is improved and abdomen is benign. Ostomy is pink with flatus but no stool output yet. Patient is tolerating a soft diet. WBC has improved to 15.4 today. We will continue the Zosyn. Time Spent With Patient Time: Total time managing care of this patient today ____ minutes. Quality Stroke Does the patient have a stroke diagnosis?: No VTE Prior VTE?: No VTE Risk Level:: Medical - moderate - high VTE Device Contraindication: N/A - Device Ordered VTE Drug Contraindication: N/A - Med Ordered
[2024-02-11] MEDS: Acetaminophen 1,000 MG/100 ML PIGGYBACK 400 MG IV ×3 (10:06→21:22)
[2024-02-11] MEDS: Simethicone 80 MG TAB.CHEW PO (10:08)
[2024-02-11 16:00] VITALS: BP 124/58; PULSE 62; RESP 16; TEMP 36.3; O2SAT 97
--- NOTE | 2024-02-11 17:50 | PC.NURSE ---
Pt doing well, ambulated in the hallway multiple times today to and from the nurses station. Minimal pain, see flow sheet. Stoma beefy red, small amount of bloody drainage. RAY emptied for 30cc today. 500 cc out from F/C. Tolerating IV ABX, WBC Trending down. Call baez within reach, pt made low fall risk today, rings appropriately.
[2024-02-11 20:00] VITALS: BP 184/80; PULSE 66; RESP 16; TEMP 36.7; O2SAT 98
[2024-02-11] MEDS: Metoprolol Succinate ER 100 MG TAB.ER.24H PO (21:26)
[2024-02-12 01:12] VITALS: BP 168/88
[2024-02-12] MEDS: Piperacillin Sodium/Tazobactam 3.375 GM in 0.9 % Sodium Chloride 50 ML IV ×2 (02:29→07:40)
[2024-02-12 04:00] VITALS: BP 163/82; PULSE 57; RESP 16; TEMP 36.2; O2SAT 98
[2024-02-12] MEDS: Omeprazole 20 MG CAPSULE.DR PO (05:54)
[2024-02-12] MEDS: Levothyroxine Sodium 88 MCG TABLET PO (05:54)
--- NOTE | 2024-02-12 07:34 | PM.PNGS ---
Subjective Subjective Date of Service: 02/12/24 <Carin [facility] - Last Filed: 02/12/24 08:41> 02/12/24 <Shailesh Pacheco MD - Last Filed: 02/12/24 12:28> 02/12/24 <Iliana Ramirez PA-C - Last Filed: 02/12/24 08:51> Interval history: Patient feeling okay today. Complaining of slight dry cough beginning overnight due to dry throat which is causing incision pain when she does cough. Otherwise well. Pain at baseline 0/10 but 4/10 with movement. Denies any cramping or bloating. She has been OOB and walking yesterday doing some laps in the hallway. No N/V today but did have some nausea over the weekend which she feels was due to the pain medication. Endorses not having an appetite for solids and having trouble eating much due to this but can tolerate it when she does. Able to take PO medications. Denies any pain with alexis catheter, some occasional discomfort. <Carin [facility] Last Filed: 02/12/24 08:41> Physical Exam Vital Signs: Vital Signs: Last Vital Signs Temp 97.2 F 02/12/24 04:00 Pulse 57 02/12/24 04:00 Resp 16 02/12/24 04:00 BP 163/82 H 02/12/24 04:00 Pulse Ox 98 02/12/24 04:00 O2 Del Method Room Air 02/12/24 04:00 O2 Flow Rate 2 02/08/24 16:38 BMI result Body Mass Index 24.1 [facility] Last Filed: 02/12/24 08:41> Const: Orientation/consciousness: patient oriented x3 [facility] Last Filed: 02/12/24 08:41> Resp: Effort & Inspection: normal respiratory effort and able to speak in complete sentences <Carni [facility] Last Filed: 02/12/24 08:41> GI: Other: Abdomen with dressings c/d/i. Mild TTP over the wound, without distension or tenderness elsewhere. No erythema, edema, or skin changes surrounding the dressings. Drain in place with scant serosanguinous fluid present. Ostomy pink and outputting dark brown stool as of overnight. <Carin Paige - Last Filed: 02/12/24 08:41> : Other: Alexis output 40mL of clear light yellow urine. No cloudiness. <Carin Paige - Last Filed: 02/12/24 08:41> Neuro: General: patient oriented x3 <Carin Paige - Last Filed: 02/12/24 08:41> Objective Data Active Medications Calcium Carbonate (Calcium Carbonate 750 Mg Tab.Chew) 750 mg PO Q4H PRN PRN Reason: Heartburn Heparin Sodium (Porcine) (Heparin Sodium,Porcine 5,000 Unit/Ml Vial) 5,000 unit SUBCUT Q12H [facility] Last Admin: 02/11/24 21:25 Dose: 5,000 unit Documented By: RISHI Acetaminophen (Ofirmev) 1,000 mg in 100 mls @ 400 mls/hr IV Q6H [facility] Last Admin: 02/12/24 04:32 Dose: Not Given Documented By: RISHI Non-Admin Reason: Patient Asleep Piperacillin Sod/Tazobactam (Sod 3.375 gm/ Sodium Chloride) 50 mls @ 100 mls/hr IV Q6H [facility] Last Infusion: 02/12/24 03:04 Dose: Infused Documented By: RISHI Levothyroxine Sodium (Levothyroxine Sodium 88 Mcg Tablet) 88 mcg PO DAILY@0600 [facility] Last Admin: 02/12/24 05:54 Dose: 88 mcg Documented By: RISHI Losartan Potassium (Losartan Potassium 50 Mg Tablet) 100 mg PO DAILY [facility]; Protocol Last Admin: 02/11/24 07:59 Dose: 100 mg Documented By: NISA Melatonin (Melatonin 3 Mg Tablet) 6 mg PO BEDTIME PRN PRN Reason: Insomnia Metoprolol Succinate (Metoprolol Succinate Er 100 Mg Tab.Er.24h) 100 mg PO BEDTIME [facility]; Protocol Last Admin: 02/11/24 21:26 Dose: 100 mg Documented By: RISHI Morphine Sulfate (Morphine Sulfate 4 Mg/Ml Cartridge) 4 mg IVPUSH Q4H PRN; Protocol PRN Reason: Pain, Severe (Pain Scale 7-10) Omeprazole (Omeprazole 20 Mg [place].) 20 mg PO BID@0630,1630 [facility] Last Admin: 02/12/24 05:54 Dose: 20 mg Documented By: RISHI Ondansetron HCl (Ondansetron Hcl 4 Mg/2 Ml Vial) 4 mg IVPUSH Q6H PRN PRN Reason: Nausea and Vomiting Last Admin: 02/10/24 06:15 Dose: 4 mg Documented By: IMELDA Oxycodone HCl (Oxycodone Hcl Immed Release 5 Mg Tablet) 5 mg PO Q4H PRN PRN Reason: Pain, Moderate(Pain Scale 4-6) Last Admin: 02/10/24 02:54 Dose: 5 mg Documented By: IMELDA Simethicone (Simethicone 80 Mg Tab.Chew) 80 mg PO QID PRN PRN Reason: Gas Last Admin: 02/11/24 10:08 Dose: 80 mg Documented By: NISA Sodium Chloride (0.9 % Sodium Chloride Flush 3 Ml Syringe) 3 ml IVFLUSH QSHIFT [facility]LE[facility] Last Admin: 02/11/24 21:27 Dose: 3 ml Documented By: RISHI [facility] Last Filed: 02/12/24 08:41> Labs CBC & Chem 7: 02/11/24 05:10 02/09/24 05:34 [facility] Last Filed: 02/12/24 08:41> Procedures Date of Service Date of Service: 02/12/24 <[facility] Last Filed: 02/12/24 08:41> 02/12/24 <Shailesh Pacheco MD - Last Filed: 02/12/24 12:28> 02/12/24 <Iliana Ramirez PA-C - Last Filed: 02/12/24 08:51> Progress Note: A&P Assessment and plan (1) Colovesical fistula: Status: Acute <[facility] - Last Filed: 02/12/24 08:41> Assessment and Plan: S/P sigmoid resection, colostomy stoma functioning appetite poor abd soft incisions clean RAY drain - scanty serosanguinous output stoma with good output if PO intake ok today, poss. dc home stoma care education BP meds seen and examined independently <Shailesh Pacheco MD - Last Filed: 02/12/24 12:28> Assessment and Plan: S/p sigmoid resection and colostomy, doing well post op. Continue PO medications and encourage increased PO intake Continue OOB walking as tolerated Discharge home if able to increase PO intake <Carin [facility] - Last Filed: 02/12/24 08:41> S/p sigmoid resection and colostomy, doing well post op. Continue PO medications and encourage increased PO intake Continue OOB walking as tolerated Discharge home if able to increase PO intake Seen independently and agree with Kely HERNANDEZ Ostomy education. Home later today with alexis in place with VNA services for ostomy care if tolerating solid diet, pain remains controlled. Will dc on course of PO Augmentin. F/u in office in [address] Pacheco, Dr. Roblero for alexis removal. <Iliana Ramirez PA-C - Last Filed: 02/12/24 08:51> Time Spent With Patient Time: Total time managing care of this patient today ____ minutes. <Carin [facility] - Last Filed: 02/12/24 08:41> Quality Stroke Does the patient have a stroke diagnosis?: No <Carin [facility] - Last Filed: 02/12/24 08:41> VTE Prior VTE?: No <Carin [facility] - Last Filed: 02/12/24 08:41> VTE Risk Level:: Medical - moderate - high <Carin [facility] - Last Filed: 02/12/24 08:41> VTE Device Contraindication: N/A - Device Ordered <Carin [facility] - Last Filed: 02/12/24 08:41> VTE Drug Contraindication: N/A - Med Ordered <Carin [facility] Last Filed: 02/12/24 08:41>
[2024-02-12 07:39] VITALS: BP 178/80
[2024-02-12] MEDS: Heparin Sodium,Porcine 5,000 UNIT/ML VIAL 5000 UNIT SUBCUT (07:39)
[2024-02-12] MEDS: Losartan Potassium 50 MG TABLET 100 MG PO (07:39)
[2024-02-12] MEDS: 0.9 % Sodium Chloride Flush 3 ML SYRINGE IVFLUSH (07:40)
[2024-02-12 08:00] VITALS: BP 151/84; PULSE 62; RESP 18; TEMP 36.5; O2SAT 98
[2024-02-12] MEDS: Acetaminophen 1,000 MG/100 ML PIGGYBACK 400 MG IV (09:39)
--- NOTE | 2024-02-12 12:28 | PM.EVENT ---
Event Note Date of Service: 02/12/24 Event Note: Continues to feels well Good pain control RAY very scanty serosanguineous output Urine clear on the Chavez catheter Looks well Ambulating Ate 75% of breakfast She says she is ready to be discharged Seen by our stoma nurse Visiting nurse arranged Discharge instructions reviewed with patient Discussed with daughter Margo RAY removed Time Spent With Patient Time: Total time managing care of this patient today ____ minutes.
--- NOTE | 2024-02-12 12:30 | W.MHC.F2F ---
Service Date Service Date: 02/12/24 Encounter Date of encounter: 02/12/24 Reasons for Services Signs and symptoms assessed: Has colostomy and Cahvez catheter after sigmoid resection and end colostomy for colovesical fistula Reason for fci: wound care and other (Stoma care, Chavez catheter in place) Homebound: Leaving the home is medically contraindicated at this time without the asist of a device and/or another person due th the listed conditions above and below. Reason homebound: unsteady gait / fall risk Certification: Based on the above findings, I certify that this patient is confined to the home and needs intermittent fci care, physical therapy and/or speech therapy, or continues to need occupational therapy. The patient is under my care, and I have initiated the establishment of the plan of care. The patient will be followed by a physician who will periodically review the plan of care. Time Spent With Patient Time: Total time managing care of this patient today ____ minutes.
--- NOTE | 2024-02-12 13:51 | MHC.CM.PN ---
unable to find a vna for this pt as she lives in [place] both pt and nurse feel comfortablemthat pt will be able to do her own care ..dr bell has jeff notified of same
--- NOTE | 2024-02-12 15:06 | P.DS_ITS ---
DS: Providers Provider Date of Service: 02/12/24 Date of admission: 02/08/24 07:59 Primary care physician: Leilani Woodward DO Attending physician on admission: Shailesh Pacheco Consults: 02/09/24 08:08 Consult to Ostomy Care Routine Attending physician on discharge: Shailesh Pacheco DS: Diagnosis Discharge Diagnosis (1) Colovesical fistula: Status: Acute DS: Summary Hospital Course Hospital Course: HPI AT ADMISSION: Patient with recent episode of diverticulitis with abscess with repeat CT showing collection in the pelvis surrounding the sigmoid although this appeared to be smaller but loculated with note of a new finding of air in the bladder consistent with a colovesical fistula. It was therefore recommended to proceed with resection of this diseased area of the sigmoid and likely colostomy. She now presents for the planned procedure. HOSPITAL COURSE: On 02/08/24, Attempted hand assisted laparoscopic resection converted to open sigmoid resection, extensive lysis of adhesions, detachment of sigmoid from the bladder, end-colostomy was performed by Dr. Pacheco without complication. She had diverticular disease of the sigmoid, with severe phlegmonous changes, extensive adhesions, colovesical fistula. She had an uncomplicated recovery course. Her diet was slowly advanced as tolerated. She had good pain control. She was ambulated and seen by PT. She began to pass flatus from her ostomy and then had stool output. Colostomy education was performed. She did develop a persistent post operative leukocytosis and was started on IV zosyn with improvement. On the day of discharge she was tolerating a solid diet with good pain control on oral analgesics. She was ambulating without difficulty. Her abdomen was benign with clean incisions. Her colostomy was viable appearing and functioning well. Her RAY drain scant serosanguineous output and was therefore removed. Her urine was straw colored without sediment and her alexis was continued and placed to a leg bag upon discharge. She is to follow up with Dr. Roblero for removal in 2 weeks. She was discharged to home on 02/12/24 in stable condition with VNA services. She is to follow up in the office in 1 week. Status at Discharge Functional status at discharge: independent ambulation Overall status at discharge: patient is progressing back to baseline Time Attestation Discharge Coordination Time (in mins): 40 Quality: Safe Use of Opioids Does Pt have an Active Cancer Diagnosis on the Problem List?: No Quality: Stroke Does the patient have a stroke diagnosis?: No Physical Exam Vital Signs: Vital Signs: Last Vital Signs Temp 97.7 F 02/12/24 08:00 Pulse 62 02/12/24 08:00 Resp 18 02/12/24 08:00 BP 151/84 H 02/12/24 08:00 Pulse Ox 98 02/12/24 08:00 O2 Del Method Room Air 02/12/24 08:00 O2 Flow Rate 2 02/08/24 16:38 BMI result Body Mass Index 24.1 Const: General: comfortable, no acute distress and alert Orientation/consci ousness: patient oriented x3 Resp: Effort & Inspection: normal respiratory effort GI: Other: ostomy viable appearing, soft stool in appliance RAY with serosanguineous drainage alexis catheter in place, straw colored urine, no sediment Inspection: No distended and Yes incision (clean) Skin: General skin exam: no rashes or lesions noted Neuro: General: patient oriented x3 DS: Data Data Completed and Pending Completed studies during hospitalization [Text1]: 02/08/24 14:04 Surgical [PTH] Routine Colon, sigmoid, segmental resection: Diverticular-associated segmental colitis with abscess formation and marked associated fibrosis and chronic injury; negative for malignancy Discharge Plan Discharge Anticipated Discharge Date/Time: 02/12/24 15:52 Patient Disposition: Home Health Service Discharge Diagnosis: s/p sigmoid resection, end colostomy for colovesical fistula Referrals: Maxi Roblero MD [Physician] - 2 Weeks Leilani Woodward DO [Primary Care Provider] - 1 Week Shailesh Pacheco MD [Physician] - 1 Week Discharge Medications: New oxycodone 5 mg tablet 5 mg PO Q4H PRN (Reason: pain (scale score 7-10)) Qty: 24 0RF Rx Instructions: Partial Fill upon patient request. Continued metoprolol succinate 100 mg tablet extended release 24 hr 100 mg PO BEDTIME levothyroxine 88 mcg tablet 88 mcg PO DAILY@0600 losartan 100 mg tablet 100 mg PO DAILY ibuprofen 200 mg Tablet 400 mg PO Q6H PRN (Reason: Pain) Discharge Orders: Discharge Order (Routine); Ordered 02/12/24 Ordered By: Shailesh Pacheco Diet: Advance to usual diet Activity on Discharge: No heavy lifting Stand Alone Forms: Patient Portal Discharge page Print Language: Amharic Activity Restrictions/Additional Instructions: If the incision area is tender, you may apply an ice pack for short intervals (No more than 20 minutes on, followed by at least 20 minutes off). Do not apply heat. Do not use creams, lotions, or topical antibiotics. These can cause infection or allergic reaction. Ok to shower. You have soy closing your incision and these will be removed approximately 10-14 days after surgery. Alexis to leg bag. Ostomy care- change appliance every 3-4 days and as needed. NO HEAVY LIFTING (>10lbs) or strenuous activity. Follow up in office. ([phone]) Call Your Doctor If: -Your temperature exceeds 101.5? F -You experience excessive pain or swelling -You have an unexpected reaction to medication -You have excessive bleeding -You experience continued vomiting/nausea -Your incision begins to separate -Your incision shows signs of infection such as increased redness, swelling, excessive pain, drainage (light blood or clear fluid is normal) or heat Care Plan Goals: Return to baseline health and resume normal activities following recovery period. Alexis removal. Health Concerns: colovesical fistula Plan of Treatment: s/p sigmoid resection, end colostomy ostomy care alexis care f/u with Dr. Pacheco f/u with Dr Roblero for alexis removal Assessment: Doing well post op. Patient Instructions: Colostomy Care (GEN), Rony-Baumann Drain Care (GEN), Colectomy Diet (GEN), Colectomy (GEN) Discharge Date/Time: 02/12/24 14:26
== END 2024-02-12 14:26 | disposition home health service (06) | DRG 330 ==
LOC: HO.SSSA 08:02 → HO.S3 15:27
PROVIDERS: Physician Assistant Surgical; Surgery; Admitting Provider Surgery; PCP Family Medicine; Visit Provider Surgery
PROC: 0DTE0ZZ Resection of Large Intestine, Open Approach (ICD-10-PCS; principal; 2024-02-08 09:30)
DX: K57.20 Diverticulitis of large intestine with perforation and abscess without bleeding (principal); N32.1 Vesicointestinal fistula; K66.0 Peritoneal adhesions (postprocedural) (postinfection); F17.210 Nicotine dependence, cigarettes, uncomplicated; Z71.6 Tobacco abuse counseling; Z79.890 Hormone replacement therapy; Z79.899 Other long term (current) drug therapy
CPT/HCPCS: 36415; 80048; 85025; 86850; 86900; 86901; 88307; 93005; 97162; C1758; J0131; J0665; J1170; J1200; J1644; J2250; J2371; J2405; J2543; J2704; J3010; J7120; Q9968

== ENCOUNTER → 2024-02-08 07:59 | Outpatient (BNV) | payer MEDICARE, SELFPAY | PROVIDERS: Admitting Provider Surgery; PCP Family Medicine; Visit Provider Physician Assistant Surgical | DX: N32.1 Vesicointestinal fistula (principal) | CPT/HCPCS: 44143; 99024; 99499; G0180 ==

== ENCOUNTER 2024-02-21 10:40 | Outpatient (AMB) | payer MEDICARE, SELFPAY ==
--- NOTE | 2024-02-21 10:43 | MHC.OFFVIS ---
Vital Signs 02/21/24 10:50 Height 5 ft 4 in Weight 130 lb BMI 22.3 BP 187/86 H Blood Pressure Location Lt brachial Position Sitting Pulse 77 Intake Visit Reasons: S/P sigmoid resection Intake Note: Patient is seen in office for post op assessment post sigmoid resection. Pt c/o: admits to discomfort, soy are healing as expected, some minimal discharge in couple of soy near the bag Court Liaison Required: No Accompanied by: Other Relationship Allergies hydrochlorothiazide Adverse Reaction (Intermediate, Verified 02/21/24 10:50) Rash sun rash Sulfa (Sulfonamide Antibiotics) Adverse Reaction (Mild, Verified 02/21/24 10:50) Nausea and Vomiting HPI HPI S/P sigmoid resection: Details: She underwent sigmoid resection, and an end-colostomy for a colovesical fistula with severe diverticulitis last 02/08/2024. She actually tolerated the procedure well. She is doing well at home. Her colostomy is functioning well. Her urine has cleared up. She describes some discharge from the upper part of her midline incision. [facility] Medical History Wears dentures Hypothyroidism Diverticulitis Thyroid disease Hypertension Surgical History Hx of surgical procedure (~02/08/24) History of dilatation and curettage (01/19/24) Hx of tonsillectomy Family History Mother HTN (hypertension) Father Pancreas cancer Social History Household Members: Spouse Housing: House Are you a primary vocational childcare teacher to a significant other at home: No Do you presently have visiting nurse or other home services: No Alcohol intake: current Alcohol intake frequency: holidays/special occasions only Patient Tobacco Use Status: Current everyday Tobacco user Tobacco use type: Cigarette Cigarettes Per Day: 5 Years Smoked: 50 service: No Current occupational status: retired Sexual orientation: Straight/Heterosexual Gender identity: Female Physical Exam Vital Signs: Last Vital Signs Pulse 77 02/21/24 10:50 BP 187/86 H 02/21/24 10:50 BMI result Body Mass Index 22.3 Const Other: Looks well General: comfortable and no acute distress Resp Effort & Inspection: normal respiratory effort GI Other: Colostomy functioning well, midline incision is well healed although there is an area of discharge from subcutaneous fat necrosis on the upper part of the incision Palpation (GI): Soft to palpation, not firm and no guarding Assessment & Plan Assessment & Plan (1) Abscess of sigmoid colon: Code(s): K63.0 - Abscess of intestine Category: Medical Plan: Status post sigmoid resection for colovesical fistula. She is doing very well. The stoma is functioning well. Her incision is healing but she does have an area of subcutaneous fat necrosis. I have instructed her on daily wound care for this. I anticipate this to eventually heal. I removed all her skin soy I will see her in the office for another wound check in about 2-3 weeks. Her path report shows significant inflammatory changes, multiple abscesses in the segment of the sigmoid removed. The patient feels see the Urology service tomorrow to have the Chavez catheter removed. Coding Level of Care Code Global (87333) Diagnoses Abscess of sigmoid colon K63.0
[2024-02-21 10:50] VITALS: BP 187/86; PULSE 77; BMI 22.3
== END 2024-02-21 11:20 | disposition home or self-care (01) ==
PROVIDERS: PCP Family Medicine; Visit Provider Surgery
DX: K63.0 Abscess of intestine (principal)
CPT/HCPCS: 99024

== ENCOUNTER → 2024-02-21 10:40 | Outpatient (BNVA) | payer MEDICARE, SELFPAY | PROVIDERS: PCP Family Medicine; Visit Provider Surgery | DX: K63.0 Abscess of intestine (principal) | CPT/HCPCS: 99212 ==

== ENCOUNTER 2024-02-22 11:19 | Outpatient (REF) | payer MEDICARE, SELFPAY ==
--- NOTE | ~2024-02-22 | FL_ITS ---
EXAMINATION: FLUOROSCOPIC CYSTOGRAM CLINICAL INFORMATION: Colovesicular fistula due to diverticular abscess. Patient is status post status post colon resection. COMPARISON: CT scan December 2023 TECHNIQUE: Cysto-Conray was administered via the patient's indwelling Chavez catheter and multiple cine loops and spot images were then obtained. FINDINGS: A Chavez catheter is present in the bladder. Bladder has a normal contour without gross evidence of mass, or filling defect. No extravasation of contrast contrast is noted. There is partial filling of the distal left ureter. No evidence of a colovesicular fistula is present. FLUOROSCOPY TIME: 6 minutes 39 seconds DOSE AREA PRODUCT: 2551 uGy-m2 (microgray-meter squared) FL/FL cystogram IMPRESSION: 1. No extravasation of contrast. 2. No evidence of colovesicular fistula. 3. Mild reflux into the left ureter. This procedure was performed by Jerrell Silva PA-C, and supervised by Dr. Cabrales
== END 2024-02-22 11:20 | disposition home or self-care (01) ==
LOC: HO.XRAY 11:19
PROVIDERS: Visit Provider Urology
DX: N32.1 Vesicointestinal fistula (principal); K57.92 Diverticulitis of intestine, part unspecified, without perforation or abscess without bleeding
CPT/HCPCS: 51600; 74455; 99212

== ENCOUNTER → 2024-02-22 11:21 | Outpatient (BNV) | payer MEDICARE, SELFPAY | PROVIDERS: Visit Provider Physician Assistant Surgical | DX: N32.1 Vesicointestinal fistula (principal) | CPT/HCPCS: 74455 ==

== ENCOUNTER 2024-02-22 13:39 | Outpatient (AMB) | payer MEDICARE, SELFPAY ==
--- NOTE | 2024-02-22 14:00 | A.OFFVIS_ITS ---
Intake Visit Reasons: Urinarity retention/ Voiding trial Allergies hydrochlorothiazide Adverse Reaction (Intermediate, Verified 02/21/24 10:50) Rash sun rash Sulfa (Sulfonamide Antibiotics) Adverse Reaction (Mild, Verified 02/21/24 10:50) Nausea and Vomiting HPI Comments Details: Jennie is a pleasant female. Here for follow-up of cystogram and catheter removal Catheter being placed at time of surgery for diverticulitis Bowel had been markedly adhered to bladder Cystogram reviewed. No formal report. Evaluation of films showed no leakage. Catheter removed PRN followup [facility] Medical History (Updated 02/22/24 @ 15:19 by Maxi Roblero MD) Wears dentures Hypothyroidism Diverticulitis Thyroid disease Hypertension Surgical History Hx of surgical procedure (~02/08/24) History of dilatation and curettage (01/19/24) Hx of tonsillectomy Family History Mother HTN (hypertension) Father Pancreas cancer Social History Household Members: Spouse Housing: House Are you a primary health care / medical job titles to a significant other at home: No Do you presently have visiting nurse or other home services: No Alcohol intake: current Alcohol intake frequency: holidays/special occasions only Patient Tobacco Use Status: Current everyday Tobacco user Tobacco use type: Cigarette Cigarettes Per Day: 5 Years Smoked: 50 service: No Current occupational status: retired Sexual orientation: Straight/Heterosexual Gender identity: Female Review of Systems Const Denies chills and Denies fever(s) Card Reports no additional complaints and Denies syncope Resp Denies cough GI Denies abdominal pain and Denies heartburn Reports as per HPI and Denies change in libido Neuro Denies syncope Psych Denies change in libido Endo Denies change in libido Physical Exam Const General: cooperative, healthy appearing, comfortable and no acute distress Orientation/consciousness: patient oriented x3 HEENT Face and sinus: Yes normal facial exam Mouth: moist mucous membranes Neck Neck: Yes normal visual inspection, Yes full ROM and Yes trachea midline Chest Chest palpation & inspection: normal inspection of the chest Resp Effort & Inspection: normal respiratory effort, able to speak in complete sentences and no respiratory distress GI Inspection: Yes normal to inspection Back/Spine/Pelvis Cervical Spine: normal cervical lordosis Thoracic/Lumbar Spine: thoracic and lumbar spine normal to inspection Skin General skin exam: no rashes or lesions noted Neuro General: patient oriented x3, gait normal, tone normal and moves all extremities Extrem General: Yes normal to inspection and Yes capillary refill normal Assessment & Plan Assessment & Plan (1) Diverticulitis: Code(s): K57.92 - Diverticulitis of intestine, part unspecified, without perforation or abscess without bleeding Category: Medical Plan P.r.n. follow-up Patient Instructions: Imaging studies, laboratory and physical exam results were discussed and reviewed in detail. No major barriers to patient understanding were identified. An opportunity to ask questions regarding the treatment plan was provided. All questions were answered. The patient expressed understanding and agreement with the above treatment plan. The patient is aware they should contact our office by phone for worsening of their current condition or the appearance of new urologic symptoms. Compliance is encouraged with any medications and followup testing that is ordered. It is a privilege to participate in the urologic care of your patient. If you have any questions or concerns regarding treatment for the above conditions, or other urologic issues, please do not hesitate to contact me. The office telephone contact is [phone]. This note is constructed using voice recognition software. While every effort has been made to ensure accuracy job developer for deaf adults errors may have been included. Yours sincerely, Dr Maxi Roblero MD, [facility] - Urology Providers of Expert, Compassionate Care for the Genitourinary System Coding Level of Care Code Est Pt Level 3 (64653) Diagnoses Diverticulitis K57.92
== END 2024-02-22 14:18 | disposition home or self-care (01) ==
PROVIDERS: PCP Family Medicine; Visit Provider Urology
DX: K57.92 Diverticulitis of intestine, part unspecified, without perforation or abscess without bleeding (principal)
CPT/HCPCS: 99213

== ENCOUNTER 2024-03-06 10:50 | Outpatient (AMB) | payer MEDICARE, SELFPAY ==
--- NOTE | 2024-03-06 10:55 | MHC.OFFVIS ---
Vital Signs 03/06/24 10:59 Height 5 ft 4 in Weight 125 lb BMI 21.5 Intake Visit Reasons: 2 week follow up S/P sigmoid resection Intake Note: This patient presents for 2 week follow up S/P sigmoid resection. Pt c/o; reports not complaints at this time. 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 She continues to do well. Her stoma has been functioning well. Her main complaint is that the colostomy appliance seems to leak frequently and she has this change this every day. She still describes some skin separation on her incision but this has been healing well. [facility] Medical History Wears dentures Hypothyroidism Diverticulitis Thyroid disease Hypertension Surgical History Hx of surgical procedure (~02/08/24) History of dilatation and curettage (01/19/24) Hx of tonsillectomy Family History Mother HTN (hypertension) Father Pancreas cancer Social History Household Members: Spouse Housing: House Are you a primary personal care home administrator to a significant other at home: No Do you presently have visiting nurse or other home services: No Alcohol intake: current Alcohol intake frequency: holidays/special occasions only Patient Tobacco Use Status: Current everyday Tobacco user Tobacco use type: Cigarette Cigarettes Per Day: 5 Years Smoked: 50 service: No Current occupational status: retired Sexual orientation: Straight/Heterosexual Gender identity: Female Review of Systems Const Denies chills and Denies fever(s) Card Denies chest pain, Denies dyspnea and Denies dyspnea on exertion Resp Denies cough, Denies dyspnea and Denies dyspnea on exertion GI Denies hematochezia and Denies change in bowel habits Denies hematuria Musc Denies back pain and Denies limited range of motion Neuro Denies focal weakness and Denies convulsions Psych Denies depression and Denies mood swings Physical Exam Vital Signs: BMI result Body Mass Index 21.5 Const Other: Looks well General: comfortable and no acute distress GI Other: Colostomy in place, working well, midline incision mostly well healed with note of a skin gap at the superior inferior margins, good granulation in between Palpation (GI): Soft to palpation, not firm, nontender and no guarding Assessment & Plan Assessment & Plan (1) Diverticulitis: Code(s): K57.92 - Diverticulitis of intestine, part unspecified, without perforation or abscess without bleeding Category: Medical Plan: Status post Stacy's procedure. She is doing very well. Her colostomy is functioning well. I will have her seen by her colostomy care nurse so we can figure out he has of keeping the stoma place for longer periods of time Her incision is healing well even with the skin separation. I will see her in the office in about a month for another follow-up. Coding Level of Care Code Global (92551) Diagnoses Diverticulitis K57.92
[2024-03-06 10:59] VITALS: BMI 21.5
== END 2024-03-06 11:42 | disposition home or self-care (01) ==
PROVIDERS: PCP Family Medicine; Visit Provider Surgery
DX: K57.92 Diverticulitis of intestine, part unspecified, without perforation or abscess without bleeding (principal)
CPT/HCPCS: 99024

== ENCOUNTER → 2024-03-06 10:50 | Outpatient (BNVA) | payer MEDICARE, SELFPAY | PROVIDERS: PCP Family Medicine; Visit Provider Surgery | DX: Z48.815 Encounter for surgical aftercare following surgery on the digestive system (principal); Z93.3 Colostomy status; Z87.19 Personal history of other diseases of the digestive system | CPT/HCPCS: 99212 ==

== ENCOUNTER 2024-04-08 11:22 | Outpatient (AMB) | payer MEDICARE, SELFPAY ==
--- NOTE | 2024-04-08 11:25 | A.OFFVIS_ITS ---
Vital Signs 04/08/24 11:37 Height 5 ft 4 in Weight 128 lb 8 oz BMI 22.1 BP 161/73 H Blood Pressure Location Rt brachial Position Sitting Pulse 65 Intake Visit Reasons: 1 mth follow up S/P sigmoid resection Intake Note: Patient is seen in office for one month follow up visit, post sigmoid resection. Pt c/o: reports no complaints at this time. Pot[place] Flaker Required: No Accompanied by: Spouse Allergies hydrochlorothiazide Adverse Reaction (Intermediate, Verified 04/08/24 11:32) Rash sun rash Sulfa (Sulfonamide Antibiotics) Adverse Reaction (Mild, Verified 04/08/24 11:32) Nausea and Vomiting HPI HPI 1 mth follow up S/P sigmoid resection: Details: She is here for follow-up after Stacy's procedure last January,. She continues to do well. Her stoma appliance has been saying for much longer now and she has had no significant leaks in between. She has good oral intake. His stoma continues to function well. [facility] Medical History Wears dentures Hypothyroidism Diverticulitis Thyroid disease Hypertension Surgical History Hx of surgical procedure (~02/08/24) History of dilatation and curettage (01/19/24) Hx of tonsillectomy Family History Mother HTN (hypertension) Father Pancreas cancer Social History Household Members: Spouse Housing: House Are you a primary critical care rn to a significant other at home: No Do you presently have visiting nurse or other home services: No Alcohol intake: current Alcohol intake frequency: holidays/special occasions only Patient Tobacco Use Status: Current everyday Tobacco user Tobacco use type: Cigarette Cigarettes Per Day: 5 Years Smoked: 50 service: No Current occupational status: retired Sexual orientation: Straight/Heterosexual Gender identity: Female Review of Systems Const Denies chills and Denies fever(s) Card Denies chest pain, Denies dyspnea and Denies dyspnea on exertion Resp Denies cough, Denies dyspnea and Denies dyspnea on exertion GI Details: Has colostomy Denies hematochezia and Denies change in bowel habits Denies hematuria Musc Denies back pain and Denies limited range of motion Neuro Denies focal weakness and Denies convulsions Psych Denies depression and Denies mood swings Physical Exam Vital Signs: Last Vital Signs Pulse 65 04/08/24 11:37 BP 161/73 H 04/08/24 11:37 BMI result Body Mass Index 22.1 Const General: comfortable and no acute distress Resp Effort & Inspection: normal respiratory effort GI Other: Colostomy functioning well Palpation (GI): Soft to palpation, not firm, nontender and no guarding Assessment & Plan Assessment & Plan (1) Abscess of sigmoid colon: Code(s): K63.0 - Abscess of intestine Category: Medical Plan: Status post Stacy's procedure. She is doing very well. Her stoma appliance has been staying for much longer now without any leak. She looks well overall She is scheduled to spend her winter in [place] and is leaving in a few weeks. I will see her in the office when she comes back in the spring. Coding Level of Care Code Global (14214) Diagnoses Abscess of sigmoid colon K63.0
[2024-04-08 11:37] VITALS: BP 161/73; PULSE 65; BMI 22.1
== END 2024-04-08 11:46 | disposition home or self-care (01) ==
PROVIDERS: PCP Family Medicine; Visit Provider Surgery
DX: K63.0 Abscess of intestine (principal)
CPT/HCPCS: 99024

== ENCOUNTER → 2024-04-08 11:22 | Outpatient (BNVA) | payer MEDICARE, SELFPAY | PROVIDERS: PCP Family Medicine; Visit Provider Surgery | DX: Z48.815 Encounter for surgical aftercare following surgery on the digestive system (principal); Z87.19 Personal history of other diseases of the digestive system; Z93.3 Colostomy status | CPT/HCPCS: 99212 ==

== ENCOUNTER 2024-12-11 10:14 | Outpatient (AMB) | payer MEDICARE, SELFPAY ==
--- NOTE | 2024-12-11 10:17 | MHC.OFFVIS ---
Vital Signs 12/11/24 10:26 Height 5 ft 4 in Weight 140 lb BMI 24.0 BP 162/88 H Blood Pressure Location Lt brachial Position Sitting Pulse 60 Intake Visit Reasons: Follow up sigmoid resection Intake Note: Patient here today to follow up sigmoid resection. Recently back from [place]. Patient c/o: feels like stoma is unpredictable. Surgery: 02-08-2024 Process Specialist Required: No Accompanied by: spouse Lawson Allergies hydrochlorothiazide Adverse Reaction (Intermediate, Verified 12/11/24 10:23) Rash sun rash Sulfa (Sulfonamide Antibiotics) Adverse Reaction (Mild, Verified 12/11/24 10:23) Nausea and Vomiting Medication List - Last Reconciled 12/11/24 by Shailesh Pacheco MD levothyroxine 88 mcg PO DAILY@0600 losartan 100 mg PO DAILY metoprolol succinate ER 100 mg PO BEDTIME HPI HPI Follow up sigmoid resection: Details: She is here for follow-up after Stacy's procedure last January,. She continues to do well. Her stoma appliance has been saying for much longer now and she has had no significant leaks in between. She has good oral intake. Her stoma continues to function well. She denies any urinary complaints. She feels well overall. [facility] Medical History (Updated 12/11/24 @ 10:44 by Shailesh Pacheco MD) Colostomy in place Wears dentures Hypothyroidism Diverticulitis Thyroid disease Hypertension Surgical History Hx of surgical procedure (~02/08/24) History of dilatation and curettage (01/19/24) Hx of tonsillectomy Family History Mother HTN (hypertension) Father Pancreas cancer Social History Household Members: Spouse Housing: House Are you a primary women's health care nurse practitioner to a significant other at home: No Do you presently have visiting nurse or other home services: No Alcohol intake: current Alcohol intake frequency: holidays/special occasions only Patient Tobacco Use Status: Current everyday Tobacco user Tobacco use type: Cigarette Cigarettes Per Day: 5 Years Smoked: 50 service: No Current occupational status: retired Sexual orientation: Straight/Heterosexual Gender identity: Female Review of Systems Const Denies chills and Denies fever(s) Card Denies chest pain, Denies dyspnea and Denies dyspnea on exertion Resp Denies cough, Denies dyspnea and Denies dyspnea on exertion GI Details: Has colostomy Denies hematochezia and Denies change in bowel habits Denies hematuria Musc Denies back pain and Denies limited range of motion Neuro Denies focal weakness and Denies convulsions Psych Denies depression and Denies mood swings Physical Exam Vital Signs: Last Vital Signs Pulse 60 12/11/24 10:26 BP 162/88 H 12/11/24 10:26 BMI result Body Mass Index 24.0 Const General: comfortable and no acute distress Resp Effort & Inspection: normal respiratory effort Cardio Rate: regular rate GI Other: Colostomy functioning Palpation (GI): Soft to palpation, not firm, nontender and no guarding Assessment & Plan Assessment & Plan (1) Colostomy in place: Code(s): Z93.3 - Colostomy status Category: Medical Plan: She underwent a Stacy's procedure for colovesical fistula last January, She is doing very well. Her stoma has been functioning well She is not thinking of having reversal currently. I will see her again in the office about 6 months to see how she is doing. Coding Level of Care Code Est Pt Level 3 (28341) Diagnoses Colostomy in place Z93.3
[2024-12-11 10:26] VITALS: BP 162/88; PULSE 60; BMI 24.0
--- OUTSIDE RECORDS SUMMARY | 2024-12-11 11:47 | XMS_ITS | Encounter Summary ---
Author Organization [employer] Address [address], [place] [address] Care Team Providers Care Printing Machine Operator Name Role Phone Fina Benites Primary Care Provider Un available Leilani Woodward DO Primary Care Provider [phone] Reason for Visit * Reason Onset Date Comments Med Refill 03/08/2023 Encounter Details Date Type Department Care Team (Late st Contact Info) Description 03/08/[address] [facility] MEDICAL [address] [place] [address] Fina Benites FNP Hypothyroidism, unspecified type Social History Tobacco Use Types Packs/Day Years Used Date Smoking Tobacco: Some Days Cigarettes Smokeless Tobacco: Never Alcohol Use Standard Drinks/Week Comments Yes 1 (1 standard drink = 0.6 oz pur e alcohol) Depression Answer Date Recorded Patient Health Questionnaire-2 Score 0 12/30/2022 Comments Unknown Sex and Gender Information Value Date Recorded Sex Assigned at Female 09/29/2022 8:55 AM EST Legal Sex Female 8:35 PM EDT Gender Identity Female 09/29/2022 8:55 AM EST Sexual Orientation Choose not to disclose 2022 8:55 AM EST documented as of this encounter Plan of Treatment Upcoming Encounters Date Type Department Care Team (Late st Contact Info) Description 12/18/2024 2:00 PM EDT Office Visit [facility] OPTOMETRY [address] [place] [address] Racheal Reece OD [address] [place] [address] documented as of this encounter Visit Diagnoses Diagnosis Hypothyroidism, unspecified type documented in this encounter Care Teams Printing Machine Operator Relationship Specialty Start Date End Date Peloquin, Fina, PATIENT ACCOUNTS COORDINATOR PCP - General Family Medicine 06/23/22 11/29/23 Leilani Woodward DO [address] [place] [id number] PCP - General Family Medicine 11/30/23 documented as of this encounter
--- OUTSIDE RECORDS SUMMARY | 2024-12-11 11:47 | XMS_ITS | Encounter Summary ---
Author Organization [employer] Address [address] [place] [address] Care Team Providers Care Area Mechanic Name Role Phone Leilani Woodward DO Primary Care Provider [phone] Encounter Details Date Type Department Care Team (Late st Contact Info) Description 01/01/2024 Orders Only [facility] [address] [place] [address] Leilani Woodward MD [address] [place] [id number] Social History Tobacco Use Types Packs/Day Years Used Date Smoking Tobacco: Some Days Cigarettes Passive Smoke Exposure: Current Smokeless Tobacco: Never Alcohol Use Standard Drinks/Week Comments Yes 1 (1 standard drink = 0.6 oz pur e alcohol) Alcohol Answer Date Recorded How often do you have a drink containing alcohol ? 0 11/30/2023 How many drinks containing a lcohol do you have on a typical day when you are drinking? 0 11/30/2023 How often do you have six or more drinks on one occasion? 0 11/30/2023 Housing Stability Answer Date Recorded What is your housing situation today? I have lily rodriges 05/08/[address] you li ve. Do you have problems with any of the following? None of the above 05/08/2023 Food Insecurity Answer Date Recorded Within the past 12 months, y ou worried that your food would run out before you got money to buy more: Never True 05/08/2023 Within the past 12 months,th e food you bought just didn't last and you didn't have enough money to get more: Never True Transportation Answer Date Recorded In the past 12 months, has l ack of transportation kept you from medical appts, meetings, work or from getting things needed for daily living? No 05/08/2023 Intimate Partner Violence Answer Date R ecorded Within the last year, have y ou been afraid of your partner or ex-partner? 2 11/30/2023 Within the last year, have y ou been humiliated or emotionally abused in other ways by your partner or ex-partner? 2 Within the last year, have y ou been kicked, hit, slapped, or otherwise physically hurt by your partner or ex-partner? 2 11/30/2023 Within the last year, have y ou been raped or forced to have any kind of sexual activity by your partner or ex-partner? 2 11/30/2023 Utilities Answer Date Recorded In the past 12 months, has t he electric, gas, oil or water company threatened to shut off services in your home? No 05/08/2023 Depression Answer Date Recorded Patient Health Questionnaire-2 Score 0 12/30/2022 Education Answer Date Recorded What is the highest level of school you have completed or the highest degree you have received? 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 Not on file Not o n file documented as of this encounter Plan of Treatment Upcoming Encounters Date Type Department Care Team (Late st Contact Info) Description 12/18/2024 2:00 PM EDT Office Visit [facility] OPTOM[facility] [address] [place] [address] Racheal Reece OD [address] [place] [address] documented as of this encounter Procedures Procedure Name Priority Date/Time Associated Diagnosis Comments US PELVIC AND TRANSVAGINAL Routine 12/29/2023 10:24 AM EDT documented in this encounter Results * US PELVIC AND TRANSVAGINAL (12/29/2023 10:24 AM EDT) Anatomical Region Laterality Modality Ultrasound us Leilani Woodward MD IMG US PROCEDURES Final Result documented in this encounter Visit Diagnoses Not on filedocumented in this encounter Care Teams Area Mechanic Relationship Specialty Start Date End Date Leilani Woodward DO [address] [place] [id number] PCP - General Family Medicine 11/30/23 documented as of this encounter
--- OUTSIDE RECORDS SUMMARY | 2024-12-11 11:47 | XMS_ITS | Clinical Summary ---
Author Organization [employer] Address [address] [facility] 7t [place] [address] Care Team Providers Care Field Crops Harvest Machine Operator Name Role Phone Leilani Woodward DO Primary Care Provider [phone] Allergies Active Allergy Reactions Criticality Noted Date Comments Hydrochlorothiazide Rash Low 07/01/2022 Sulfa Antibiotics Rash Low 07/01/2022 Vomit Medications losartan (Cozaar) 100 MG tabletIndications :Primary hypertension TAKE 1 TABLET BY MOUTH IN THE MORNING 90 tablet 4 Active losartan (Cozaar) 100 MG tabletIndications :Primary hypertension Take 1 tablet (100 mg) by mouth Once per day. 90 tablet 1 5 02/09/20 25 Active metoprolol succinate XL (Toprol-XL) 100 MG 24 hr tabletIndications :Primary hypertension TAKE 1 TABLET BY MOUTH ONCE DAILY. DO NOT CRUSH OR CHEW 90 tablet 5 Active levothyroxine (Synthroid, Levoxyl) 88 MCG tabletIndications :Hypothyroidism, unspecified type Take 1 tablet (88 mcg) by mouth before breakfast. 90 tablet 3 5 Active Active Problems Problem Noted Date Diagnosed Date Abscess of sigmoid colon 04/12/2024 Overview (04/12/2024): Images from the original note were not included. Colostomy status 02/08/2024 Overview (02/18/2024): 02/08/24 - Attempted hand assisted laparoscopic resection converted to open sigmoid resection, extensive lysis of adhesions, detachment of sigmoid from the bladder, end-colostomy Thickened endometrium 01/11/2024 Overview (02/10/2024): S/p D&C with endocervical polypectomy 01/19/24. Polyp and endometrial biopsies benign Pelvic mass 01/11/2024 Overview (01/11/2024): Has follow up with colorectal and INSURANCE VERIFIER Diverticulitis 11/15/2023 Overview (04/11/2024): Images from the original note were not included. Dx diverticulitis in 2018, with obstructing abscess. Recurrence starting 10/2023 Colovesical Fistula - s/p sigmoid resection with end colostomy 02/08/24 DOS: 03/16 Assessment & Plan (11/30/2023 11:15 PM EDT): Symptoms improved, though with persistent gas/indigestion. Antibiotics likely contributing as well as atypical diet, encouraged to take probiotics and drink plenty of fluids, anticipate this will improve with above and with return to normal diet Smoker 07/01/2022 Assessment & Plan (07/01/2022 2:48 PM EST): Not ready to quit; aware of intermediate project manager implications. Declines further support, does not want to discuss further. Pure hypercholesterolemia 07/01/2022 Overview (11/30/2023): Not on statin - declines and is using supplements. Last Lipid panel 12/2022: Component Ref Range & Units 11 mo ago 1 yr ago Cholesterol, Total (<200) MG/DL 211 High 230 High Triglyceride (mg/dL) in Serum/Plasma (<150) MG/DL 84 112 HDL Cholesterol (>39) MG/DL 89 85 LDL Cholesterol, Calculated (0-130) MG/DL 105 123 Non HDL Chol. (LDL+VLDL) (<160) MG/DL 122 145 CM Will repeat lipid panel. Assessment & Plan (07/01/2022 2:49 PM EST): Declines statin despite very elevated 10 year ASCVD risk; long conversation had regarding this and she adamantly declines further treatment. Disucssed lifestyle modifications and she will work on improving her diet and exercise; declines nutrition referral. States she is aware of CV risks as both parents had CVD but she does not want further intervention. Insomnia 07/01/2022 Hypothyroidism 07/01/2022 Overview (11/15/2023): Lab Results Component Value Date TSH 3.34 12/28/2022 Stable on Levothyroxine. Due to repeat TSH. Assessment & Plan (07/01/2022 2:47 PM EST): Stable on current medical therapies; continue current plan. Will recheck in 6 months, RTC sooner for any new or concerning symptoms. Hypertension 07/01/2022 Overview (11/30/2023): BP Readings from Last 4 Encounters: 11/15/23 (!) 178/103 12/30/22 140/78 07/01/22 (!) 170/100 12/17/21 144/84 BP significantly above goal today. Discussed HTN and treatment options. Hx intolerance for Lisinopril and Amlodipine. Rash after hydrochlorothiazide. Does not want to add additional medication, but is agreeable to increase Metoprolol. Can take #2 50mg tabs daily until new Rx of 100mg, then take #1 tab. Has follow up 11/[address] Woodward - will repeat BP at that visit. Assessment & Plan (11/30/2023 11:13 PM EDT): Increase to metoprolol 100 mg daily. Does not want to start new medication. BP seems labile in clinic, encouraged to monitor at home Assessment & Plan (07/01/2022 2:47 PM EST): Very elevated in office today; pt reports this is due to anxiety with medical visits. Not checking BP at home anymore but states it was always less than 140/90 at home so did not see the point. No s/s of hypertension but is aware of red lags and when to seek urgent medical attention. Continue current medications, declines the need for adjustments. Reviewed heart healthy lifestyle as well as potential effects of intermediate project manager uncontrolled HTN; recent CMP WNL, will recheck before next visit in 6 months. Resolved Problems Problem Noted Date Diagnosed Date Resolved Date Colovesical fistula 02/08/2024 02/08/20 24 Overview (02/18/2024): Colovesical fistula d/t diverticulitis 02/08/24 - Attempted hand assisted laparoscopic resection converted to open sigmoid resection, extensive lysis of adhesions, detachment of sigmoid from the bladder, end-colostomy Encounters Date Type Department Care Team Description 11/11/2024 Refill [facility] MEDICAL [address] [place] [address] Leilani Woodward DO Hypothyroidism, unspecified type 11/09/2024 Refill [facility] [address] [place] [address] Kaye Lee FNP Primary hypertension from Last 3 Months Family History Medical History Relation Name Comments Glaucoma Brother Relation Name Status Comments Brother Social History Tobacco Use Types Packs/Day Years Used Date Smoking Tobacco: Some Days Cigarettes Passive Smoke Exposure: Current Smokeless Tobacco: Never Tobacco Cessation:Ready to Q uit: Not Asked; Counseling Given: Not Answered Alcohol Use Standard Drinks/Week Comments Yes 1 [...] 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 Not on file Not o n file Last Filed Vital Signs Vital Sign Reading Time Taken Comments Blood Pressure 157/89 11/30/2023 10:13 AM EDT Pulse 86 11/30/2023 10:13 AM EDT Temperature 36.9 ??C (98.4 ??F) 11/30/2023 10:13 AM E DT Respiratory Rate 16 12/30/2022 10:01 AM EDT Oxygen Saturation 98% 11/30/2023 10:13 AM EDT Inhaled Oxygen Concentration - - Weight 64.4 kg (142 lb) 11/30/2023 10:13 AM EDT Height 162.6 cm (5' 4 ) 11/30/2023 10:13 AM EDT Body Mass Index 24.37 11/30/2023 10:13 AM EDT Plan of Treatment Upcoming Encounters Date Type Department Care Team (Late st Contact Info) Description 12/18/2024 2:00 PM EDT Office Visit Bob [facility] [address] [place] [address] Racheal Reece, NANDO [address] [place] [address] Health Maintenance Due Date Last Done Comments Alcohol/Substance Use Screening 1962 Hepatitis C Screening 1966 DTaP/Tdap/Td Vaccines (1 - Tdap) 1967 Pneumococcal Vaccine: 50+ Years (1 of 2 - PCV) 1967 Zoster Vaccines (1 of 2) 1998 RSV Patients and Patients Aged 60 years or older (1 - 1-dose 75+ series) 2023 Depression Screening 12/31/2023 12/30/2022, 12/31/19 23 SDOH Screening 12/31/2023 12/30/2022 COVID-19 Vaccine ( - season) 2024 Influenza Vaccine (#1) 2024 Tobacco Screening 01/21/2025 01/22/2024 Lipid Panel 11/14/2028 11/15/2023, 06/0 01/2023, 06/24/2022, Additional history exists HIB Vaccines Aged Out No longer eligi ble based on patient's age to complete this topic HPV Vaccines Aged Out No longer eligi ble based on patient's age to complete this topic Hepatitis A Vaccines Aged Out No long er eligible based on patient's age to complete this topic Hepatitis B Vaccines Aged Out No long er eligible based on patient's age to complete this topic IPV Vaccines Aged Out No longer eligi ble based on patient's age to complete this topic Meningococcal B Vaccine Aged Out No l onger eligible based on patient's age to complete this topic Meningococcal Vaccine Aged Out No nohemy pipe eligible based on patient's age to complete this topic RSV under 20 months Aged Out No longe r eligible based on patient's age to complete this topic Rotavirus Vaccines Aged Out No longer eligible based on patient's age to complete this topic Procedures Procedure Name Priority Date/Time Associated Diagnosis Comments LIPID PANEL, STANDARD Routine 11/15/2023 10:29 AM EDT Pure hypercholesterolemia from Last 3 Months or Most Recently Relevant to Health Maintenance Results * (ABNORMAL) Lipid Panel, Standard (11/15/2023 10:29 AM EDT) Cholesterol, Total 201(H) 100 - 199 mg/dL [facility] 1 Triglycerides 94 0 - 149 mg/dL [facility] 1 HDL Cholesterol 81 >39 mg/dL [facility] 1 VLDL Cholesterol Stuart 17 5 - 40 mg/dL [facility] 1 LDL Chol Calc (NIH) 103(H) 0 - 99 mg/dL [facility] 1 Blood Venous blood specimen / Unknown 11/15/2023 10:29 AM EDT 11/15/2023 Narrative [facility] 1 - 11/16/2023 12:05 AM EDT Performed at: ??01 - [facility] [address] ??[id number] Knowledge Management Consultant: Rylie Pichardo MD, Phone: ??[phone] Kaye ALSTONP LAB BLOOD ORDERABLES Final Resul t [facility] 1 from Last 3 Months or Most Recently Relevant to Health Maintenance Insurance [facility] MEDICARE REPLACEMENT Care Teams Field Crops Harvest Machine Operator Relationship Specialty Start Date End Date Leilani Woodward DO [address] [place] [address] PCP - General Family Medicine 11/30/23
--- OUTSIDE RECORDS SUMMARY | 2024-12-11 11:47 | XMS_ITS | Encounter Summary ---
Author Organization [employer] Address [address] 7[address] [place] [address] Care Team Providers Care Parking Attendant Name Role Phone Leilani Woodward DO Primary Care Provider [phone] Reason for Visit * Reason Onset Date Comments Clarification 12/05/2023 ct scan 12/05/[address] scan done on 12/15/23 Encounter Details Date Type Department Care Team (Late st Contact Info) Description 12/05/2023 Telephone Bob [facility] [address] [place] [address] Leilani Woodward DO [address] [place] [address] Clarification; ct scan (Request CT scan done on 12/15/23) Social History Tobacco Use Types Packs/Day Years [...] the past 12 months, has t he 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 * Telephone Encounter - Kaitlin Hernandez - 12/26/2023 9:05 AM EDT The referral was not entered as STAT, it was ordered as ROUTINE. But it was already faxed yesterdayto [facility] surgery before this TE was sent to anyone. The CT was ordered as URGENT not STAT and it was also faxed to [facility] before this TE was sent. She does not require prior auth for [employer]. * Telephone Encounter - Ladonna Sin RN - 12/25/2023 11:36 AM EDT To TEJINDER YI CT results in chart. * Telephone Encounter - ЕЛЕНА Lancaster - 12/21/2023 11:00 AM EDT Encounter routed to medical records to request the report patient had this done on 12/15/23 @ [facility] Thank you * Telephone Encounter - Kaitlin Hernandez - 12/07/2023 3:22 PM EDT Faxed order to [facility] * Telephone Encounter - Irasema Ochoa LPN - 12/05/2023 10:19 AM EDT Spoke with pt. She is wondering if her CT has been scheduled. She would like to have it done at [facility]. * Telephone Encounter - Lenny Aleman - 12/05/2023 10:06 AM EDT Patient LMOM asking to speak to someone about getting clarification on what is written in MyChart about CT scan documented in this encounter Plan of Treatment Upcoming Encounters Date Type Department Care Team (Late st Contact Info) Description 12/18/2024 2:00 PM EDT Office Visit Bob [facility] [address] [place] [address] Racheal Reece OD [address] [place] [address] documented as of this encounter Visit Diagnoses Not on filedocumented in this encounter Care Teams Parking Attendant Relationship Specialty Start Date End Date Leilani Woodward DO [address] [place] [address] PCP - General Family Medicine 11/30/23 documented as of this encounter
--- OUTSIDE RECORDS SUMMARY | 2024-12-11 11:47 | XMS_ITS | Encounter Summary ---
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 file Not o n file documented as of this encounter Plan of Treatment Upcoming Encounters Date Type Department Care Team (Late st Contact Info) Description 12/18/2024 2:00 PM EDT Office Visit [facility] [address] [place] [address] Racheal Reece OD [address] [place] [address] documented as of this encounter Procedures Procedure Name Priority Date/Time Associated Diagnosis Comments CT ABDOMEN PELVIS W CONTRAST Routine 01/23/2024 2:15 PM EDT documented in this encounter Results * CT Abdomen Pelvis w/ Contrast (01/23/2024 2:15 PM EDT) Anatomical Region Laterality Modality Body, Pelvis, Abdomen Computed T omography Leilani Woodward DO IM CT PROCEDURES Final Result documented in this encounter Visit Diagnoses Not on filedocumented in this encounter Care Teams Technology Services Manager Relationship Specialty Start Date End Date Leilani Woodward DO [address] [place] [address] PCP - General Family Medicine 11/30/23 documented as of this encounter
--- OUTSIDE RECORDS SUMMARY | 2024-12-11 11:47 | XMS_ITS | Encounter Summary ---
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 Not on file Not o n file documented as of this encounter Plan of Treatment Upcoming Encounters Date Type Department Care Team (Late st Contact Info) Description 12/18/2024 2:00 PM EDT Office Visit [place] [facility] [address] [place] [address] Racheal Reece OD [address] [place] [address] documented as of this encounter Procedures Procedure Name Priority Date/Time Associated Diagnosis Comments POCT CREATININE Routine 12/15/2023 6:04 AM EDT documented in this encounter Results * POCT creatinine docked device (12/15/2023 6:04 AM EDT) us Historical Provider LAB POINT OF CARE TEST DO CKED DEVICE ORDERABLES Final Result documented in this encounter Visit Diagnoses Not on filedocumented in this encounter Care Teams Insulation Board Calender Operator Relationship Specialty Start Date End Date Leilani Woodward DO [address] [place], [place] [id number] PCP - General Family Medicine 11/30/23 documented as of this encounter
== END 2024-12-11 10:41 | disposition home or self-care (01) ==
LOC: HO.HGS 10:15
PROVIDERS: PCP Family Medicine; Visit Provider Surgery
DX: Z93.3 Colostomy status (principal)
CPT/HCPCS: 99213

== ENCOUNTER → 2024-12-11 10:14 | Outpatient (BNVA) | payer MEDICARE, SELFPAY | PROVIDERS: PCP Family Medicine; Visit Provider Surgery | DX: Z93.3 Colostomy status (principal) | CPT/HCPCS: 99212 ==

== ENCOUNTER 2025-05-22 10:10 | Outpatient (AMB) | payer MEDICARE, SELFPAY ==
[2025-05-22 10:19] VITALS: BP 132/70; BMI 24.0
--- NOTE | 2025-05-22 10:19 | A.OFFVIS_ITS ---
Vital Signs 05/22/25 10:19 Height 5 ft 4 in Weight 140 lb BMI 24.0 BP 132/70 Blood Pressure Location Rt brachial Position Sitting Intake Visit Reasons: 6 month follow-up sigmoid resection Intake Note: This patient presents for six month follow-up status post sigmoid resection. Pt c/o; no complaints at this time. DI: 01/23/2024: Abd/pelvis CT 02/22/2024: Cystogram Customer Data Technician Required: No Accompanied by: Self / Same As Patient Allergies hydrochlorothiazide Adverse Reaction (Intermediate, Verified 05/22/25 10:45) Rash sun rash Sulfa (Sulfonamide Antibiotics) Adverse Reaction (Mild, Verified 05/22/25 10:45) Nausea and Vomiting Medication List - Last Reconciled 05/22/25 by Shailesh Pacheco MD levothyroxine 88 mcg PO DAILY@0600 losartan 100 mg PO DAILY metoprolol succinate ER 100 mg PO BEDTIME HPI HPI 6 month follow-up sigmoid resection: Details: She is here for follow-up after Stacy's procedure last January,. She continues to do well. Her stoma has been functioning well. She says that her stoma appliance has been staying in place for longer as well. She has good oral intake. She denies any abdominal pain. She denies urinary complaints. [facility] Medical History Colostomy in place Wears dentures Hypothyroidism Diverticulitis Thyroid disease Hypertension Surgical History Hx of surgical procedure (~02/08/24) History of dilatation and curettage (01/19/24) Hx of tonsillectomy Family History Mother HTN (hypertension) Father Pancreas cancer Social History Household Members: Spouse Housing: House Are you a primary customer care specialist to a significant other at home: No Do you presently have visiting nurse or other home services: No Alcohol intake: current Alcohol intake frequency: holidays/special occasions only Patient Tobacco Use Status: Current everyday Tobacco user Tobacco use type: Cigarette Cigarettes Per Day: 5 Years Smoked: 50 service: No Current occupational status: retired Sexual orientation: Straight/Heterosexual Gender identity: Female Review of Systems Const Denies chills and Denies fever(s) Card Denies chest pain, Denies dyspnea and Denies dyspnea on exertion Resp Denies cough, Denies dyspnea and Denies dyspnea on exertion GI Details: Has colostomy Denies hematochezia and Denies change in bowel habits Denies hematuria Musc Denies back pain and Denies limited range of motion Neuro Denies focal weakness and Denies convulsions Psych Denies depression and Denies mood swings Physical Exam Vital Signs: Last Vital Signs BP 132/70 05/22/25 10:19 BMI result Body Mass Index 24.0 Const General: comfortable and no acute distress Resp Effort & Inspection: normal respiratory effort GI Other: Colostomy functioning well, midline incision well healed, no hernia Palpation (GI): Soft to palpation, not firm, nontender and no guarding Assessment & Plan Assessment & Plan (1) Colostomy in place: Code(s): Z93.3 - Colostomy status Category: Medical Plan: She continues to do well after Stacy's procedure for diverticular disease. Her stoma is functioning well. She has good oral intake. She denies any complaints currently She is welcome to come back to the office p.r.n. any questions with regards to her stoma at some point. Coding Level of Care Code Est Pt Level 2 (71025) Diagnoses Colostomy in place Z93.3
--- OUTSIDE RECORDS SUMMARY | 2025-05-22 12:19 | XMS_ITS | Clinical Summary ---
Author Organization [facility] Address [address] [place] [address] Phone Care Team Providers Care Tipping Machine Operator Name Role Phone Unavailable Primary Care Provider Unavailabl e Social History Tobacco Use Types Packs/Day Years Used Date Smoking Tobacco: Never Assessed Education Answer Date Recorded Are you interested in more education? Not on mecca e 02/10/2024 Are you concerned about learning? Not on file 02/10/2024 No 02/10/2024 No 02/10/2024 Digital Access Answer Date Recorded No 02/10/2024 No 02/10/2024 Reliable internet access at home? Not on file 02/10/2024 Device with a working camera? Not on file Comments Unknown Sex and Gender Information Value Date Recorded Sex Assigned at Not on file Legal Sex Female 9:15 AM EDT Gender Identity Not on file Sexual Orientation Not on file Plan of Treatment Not on file Medical Devices Not on file Additional Source Comments The information contained in this document represents components of the legal health record. It is not the complete legal health record.[facility]
--- OUTSIDE RECORDS SUMMARY | 2025-05-22 12:19 | XMS_ITS | Encounter Summary ---
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
--- OUTSIDE RECORDS SUMMARY | 2025-05-22 12:19 | XMS_ITS | Encounter Summary ---
Author Organization [employer] Address [address] [facility] [address] [place] [address] Care Team Providers Care Medical Lab Scientist Name Role Phone Leilani Woodward DO Primary Care Provider [phone] Reason for Visit * Reason Onset Date Comments Med Refill 05/19/2025 Encounter Details Date Type Department Care Team (Late st Contact Info) Description 05/19/2025 Refill [place] 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
--- OUTSIDE RECORDS SUMMARY | 2025-05-22 12:19 | XMS_ITS | Encounter Summary ---
Author Organization [employer] Address [address] [facility] [address], [place] [address] Care Team Providers Care Water Filter Cleaner Name Role Phone Fina Benites Primary Care Provider Un available Leilani Woodward DO Primary Care Provider [phone] Reason for Visit * Reason Onset Date Comments Med Refill 03/08/2023 Encounter Details Date Type Department Care Team (Late st Contact Info) Description 03/08/2023 Refill [facility] [address] [place] [address] Fina Benites FNP Hypothyroidism, unspecified type Social [...] type documented in this encounter Care Teams Water Filter Cleaner Relationship Specialty Start Date End Date Fina Benites FNP PCP - General Family Medicine 06/23/22 11/29/23 Leilani Woodward DO [address] [place] [address] PCP - General Family Medicine 11/30/23 documented as of this encounter
--- OUTSIDE RECORDS SUMMARY | 2025-05-22 12:19 | XMS_ITS | Clinical Summary ---
Author Organization [employer] Address [address] [facility] [address] [place] [address] Care Team Providers Care Forest Pathology Teacher Name Role Phone Leilani Woodward DO Primary Care Provider [phone] Allergies Active Allergy Reactions Criticality Noted Date Comments Hydrochlorothiazide Rash Low 07/01/2022 Sulfa Antibiotics Rash Low 07/01/2022 Vomit Medications losartan (Cozaar) 100 MG tabletIndicatio ns:Primary hypertension Take 1 tablet (100 mg) by mouth Once per day. 90 tablet 1 08/12/19 Active Additional Information Patient not taking.Reported on 12/18/2024 levothyroxine (Synthroid, Levoxyl) 88 MCG tabletIndicatio ns:Hypothyroidi sm, unspecified type Take 1 tablet (88 mcg) by mouth before breakfast. 90 tablet 3 11/12/19 Active metoprolol succinate XL (Toprol-XL) 100 MG 24 hr tabletIndicatio ns:Primary hypertension Take 1 tablet (100 mg) by mouth Once per day. Do not crush or chew. 90 tablet 05/19/20 25 2025 Active losartan (Cozaar) 100 MG tabletIndicatio ns:Primary hypertension TAKE 1 TABLET BY MOUTH IN THE MORNING 90 tablet 05/21/20 25 Active losartan (Cozaar) 100 MG tabletIndicatio ns:Primary hypertension Take 1 tablet (100 mg) by mouth in the morning. 90 tablet 02/11/20 25 2024 Discontinued metoprolol succinate XL (Toprol-XL) 100 MG 24 hr tabletIndicatio ns:Primary hypertension Take 1 tablet (100 mg) by mouth Once per day. Do not crush or chew. 90 tablet 03/01/20 25 2024 Discontinued(R eorder (will not trigger notification to Pharmacy)) Active Problems Problem Noted Date Diagnosed Date Abscess of sigmoid colon 04/12/2024 Overview (04/12/2024): Images from the original note were not included. Colostomy status ([facility]) 02/08/2024 Overview (02/18/2024): 02/08/24 - Attempted hand assisted laparoscopic resection converted to open sigmoid resection, extensive lysis of adhesions, detachment of sigmoid from the bladder, end-colostomy Thickened endometrium 01/11/2024 Overview (02/10/2024): S/p D&C with endocervical polypectomy 01/19/24. Polyp and endometrial biopsies benign Pelvic mass 01/11/2024 Overview (01/11/2024): Has follow up with colorectal and [employer] Diverticulitis 11/15/2023 Overview (04/11/2024): Images from the [...] EST): Not ready to quit; aware of fci implications. Declines further support, does not want [...] lifestyle as well as potential effects of exterminator helper termite uncontrolled HTN; recent CMP WNL, will recheck before next visit in 6 months. Resolved Problems Problem Noted Date Diagnosed Date Resolved Date Colovesical fistula 02/08/2024 02/08/20 Overview (02/18/2024): Colovesical fistula d/t diverticulitis 02/08/24 - Attempted hand assisted laparoscopic resection converted to open sigmoid resection, extensive lysis of adhesions, detachment of sigmoid from the bladder, end-colostomy Encounters Date Type Department Care Team Description 05/21/[address] [address] Leilani Woodward, DO Primary hypertension 05/19/[address] [address] Leilani Woodward, DO Primary hypertension 05/19/[address] [address] Sarahi Chavez MD Primary hypertension 02/28/[address] [address] Kaye Lee FNP Primary hypertension from Last [...] 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 file Not o n file Last Filed Vital Signs Vital Sign Reading Time Taken Comments Blood Pressure 157/89 11/30/2023 10:13 AM EDT Pulse 86 11/30/2023 10:13 AM EDT Temperature 36.9 C (98.4 F) 11/30/2023 10:13 AM EDT Respiratory Rate 16 12/30/2022 10:01 AM EDT Oxygen Saturation 98% 11/30/2023 10:13 AM EDT Inhaled Oxygen Concentration - - Weight 64.4 kg (142 lb) 11/30/2023 10:13 AM EDT Height 162.6 cm (5' 4 ) 11/30/2023 10:13 AM EDT Body Mass Index 24.37 11/30/2023 10:13 AM EDT Plan of Treatment Health Maintenance Due Date Last Done Comments Alcohol/Substance Use Screening 1962 Hepatitis C Screening 1966 DTaP/Tdap/Td Vaccines (1 - Tdap) 1967 Pneumococcal Vaccine: 50+ Years (1 of 2 - PCV) 1967 Zoster Vaccines (1 of 2) 1998 RSV Patients and Patients Aged 60 years or older (1 - 1-dose 75+ series) 2023 Depression Screening 12/31/2023 12/30/2022, 12/31/19 SDOH Screening 12/31/2023 12/30/2022 COVID-19 Vaccine (1 - 2023- season) 2025 Influenza Vaccine (#1) 2025 Tobacco Screening 12/18/2025 12/18/2024 Lipid Panel 11/14/2028 11/15/2023, 06/0 01/2023, 06/24/2022, [...] - 11/16/2023 12:05 AM EDT Performed at: 01 - [facility] [address] [id number] Personal Financial Counselor: Rylie Pichardo MD, Phone: [phone] Kaye OVERTON LAB BLOOD ORDERABLES Final Resul t [facility] 1 from Last 3 Months or Most Recently Relevant to Health Maintenance Insurance [facility] MEDICARE REPLACEMENT Care Teams Forest Pathology Teacher Relationship Specialty Start Date End Date Leilani Woodward DO [address] [place] [id number] PCP - General Family Medicine 11/30/23
--- OUTSIDE RECORDS SUMMARY | 2025-05-22 12:19 | XMS_ITS | Encounter Summary ---
Author Organization [employer] Address [address] 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 file Not o n file documented as of this encounter Plan of Treatment Not on file documented as of this encounter Procedures Procedure Name Priority Date/Time Associated Diagnosis Comments POCT CREATININE Routine 12/15/2023 6:04 AM EDT documented in this encounter Results * POCT creatinine docked device (12/15/2023 6:04 AM EDT) us Historical Provider LAB POINT OF CARE TEST DO CKED DEVICE ORDERABLES Final Result documented in this encounter Visit Diagnoses Not on filedocumented in this encounter Care Teams Circulation Supervisor Relationship Specialty Start Date End Date Leilani Woodward DO [address] [place] [id number] PCP - General Family Medicine 11/30/23 documented as of this encounter
--- OUTSIDE RECORDS SUMMARY | 2025-05-22 12:19 | XMS_ITS | Encounter Summary ---
Author Organization [employer] Address [address] [facility] [address]t [place] [address] Care Team Providers Care Sales And Marketing Executive Name Role Phone Leilani Woodward DO Primary Care Provider [phone] Reason for Visit * Reason Onset Date Comments Med Refill 05/19/2025 Encounter Details Date Type Department Care Team (Late st Contact Info) Description 05/19/2025 Refill [facility] MED[facility] [address] [place] [address] Sarahi Chavez MD [address] [place] [address] Primary hypertension Social History Tobacco Use Types [...] 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
--- OUTSIDE RECORDS SUMMARY | 2025-05-22 12:19 | XMS_ITS | Encounter Summary ---
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
--- OUTSIDE RECORDS SUMMARY | 2025-05-22 12:19 | XMS_ITS | Encounter Summary ---
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 on file Not o n file documented as of this encounter Plan of Treatment Not on file documented as of this encounter Procedures Procedure Name Priority Date/Time Associated Diagnosis Comments US PELVIC AND TRANSVAGINAL Routine 12/29/2023 10:24 AM EDT documented in this encounter Results * US PELVIC AND TRANSVAGINAL (12/29/2023 10:24 AM EDT) Anatomical Region Laterality Modality Ultrasound Leilani Woodward MD IMG US PROCEDURES Final Result documented in this encounter Visit Diagnoses Not on filedocumented in this encounter Care Teams Tug Boat Engineer Relationship Specialty Start Date End Date Leilani Woodward DO [address] [place] [address] PCP - General Family Medicine 11/30/23 documented as of this encounter
--- OUTSIDE RECORDS SUMMARY | 2025-05-22 12:19 | XMS_ITS | Encounter Summary ---
Author Organization [employer] Address [address] [facility] [address] [place] [address] Care Team Providers Care Communications Tower Climber Name Role Phone Leilani Woodward DO Primary Care Provider [phone] Reason for Visit * Reason Onset Date Comments Clarification 12/05/2023 ct scan 12/05/[address] scan done on 12/15/23 Encounter Details Date Type Department Care Team (Late st Contact Info) Description 12/05/2023 Telephone [facility] [address] [place] [address] Leilani Woodward DO [address] [place] [address] Clarification; ct scan (Request CT scan done [...] the past 12 months, has t he [employer], gas, oil or water company threatened to [...] 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 * Telephone Encounter - Kaitlin Hernandez - 12/26/2023 9:05 AM EDT The referral was not entered as STAT, it was ordered as ROUTINE. But it was already faxed yesterdayto [facility] surgery before this TE was sent to anyone. The CT was ordered as URGENT not STAT and it was also faxed to [facility] before this TE was sent. She does not require prior auth for [employer]. * Telephone Encounter - Ladonna Sin RN - 12/25/2023 11:36 AM EDT To TEJINDER YI CT results in chart. * Telephone Encounter - ЕЛЕНА Lancaster - 12/21/2023 11:00 AM EDT Encounter routed to medical records to request the report patient had this done on 12/15/23 @ [facility] Thank you * Telephone Encounter - Kaitlin Hernandez - 12/07/2023 3:22 PM EDT Faxed order to [facility] * Telephone Encounter - Irasema Ochoa LPN - 12/05/2023 10:19 AM EDT Spoke with pt. She is wondering if her CT has been scheduled. She would like to have it done at [facility]. * Telephone Encounter - Lenny Aleman - 12/05/2023 10:06 AM EDT Patient LMOM asking to speak to someone about getting clarification on what is written in MyChart about CT scan documented in this encounter Plan of Treatment Not on file documented as of this encounter Visit Diagnoses Not on filedocumented in this encounter Care Teams Communications Tower Climber Relationship Specialty Start Date End Date Leilani Woodward DO [address] [place] [id number] PCP - General Family Medicine 11/30/23 documented as of this encounter
== END 2025-05-22 11:16 | disposition home or self-care (01) ==
LOC: HO.HGS 10:11
PROVIDERS: PCP Family Medicine; Visit Provider Surgery
DX: Z93.3 Colostomy status (principal)
CPT/HCPCS: 99212

== ENCOUNTER → 2025-05-22 10:10 | Outpatient (BNVA) | payer MEDICARE, SELFPAY | PROVIDERS: PCP Family Medicine; Visit Provider Surgery | DX: Z93.3 Colostomy status (principal) | CPT/HCPCS: 99212 ==